=== PATIENT | female | born 1945 | race Caucasian/White ===

== ENCOUNTER 2021-06-02 08:41 | Emergency (ER) | payer MEDICARE, SELFPAY ==
[2021-06-02] VITALS (11 sets, daily range): BP systolic 171–194; BP diastolic 71–89; PULSE 61–77; RESP 16–20; TEMP 36.6–36.8; O2SAT 96–100
--- NOTE | ~2021-06-02 | XR_ITS ---
EXAMINATION: XR chest 2V DATE: 06/02/2021 09:20 INDICATION: Palpitations. TECHNIQUE: Frontal and lateral views of the chest were obtained. COMPARISON: Chest 2 views 04/27/16 FINDINGS: The chest demonstrates clear lungs without pneumonia, pleural effusion, or pneumothorax. Th e heart size is normal. Surgical clips in the right upper quadrant are likely from cholecystectomy. IMPRESSION: 1. No acute cardiopulmonary disease. Reviewed, dictated and finalized at location A.
--- NOTE | 2021-06-02 08:52 | ECG_ITS ---
Measurements Intervals [place] Rate: 70 P: 41 AK: 158 QRS: -19 QRSD: 83 T: 11 QT: 382 QTc: 414 Interpretive Statements SINUS RHYTHM VOLTAGE CRITERIA FOR LVH BORDERLINE T WAVE ABNORMALITY- INFERIOR LEADS BORDERLINE ECG Electronically Signed On 06-02-2021 9:02:23 CDT by Crispin Pineda D.O.
[2021-06-02] MEDS: ASPIRIN 81 MG CHEWABLE TABLET 324 MG PO (09:11)
[2021-06-02 09:52] LABS: Basophils Percent Auto 0.4 % (0.2-1.2); Eosinophils Percent Auto 0.4 % (0-4.4); Hematocrit 35.2 % (37.0-47.0); Hemoglobin 11.6 g/dL (12.0-15.0); Immature Granulocyte Absolute 0.03 K/mm3 (0.00-0.031); Immature Granulocyte Percent A 0.6 % (0-0.5); Lymphocytes Absolute Auto 1.17 K/mm3 (0.9-3.2); Lymphocytes Percent Auto 23.1 % (18.3-44.2); Mean Corpuscular Hemoglobin 31.4 pg (26-34); Mean Corpuscular Volume 95.1 fl (80-100); Mean Platelet Volume 11.4 fl (7.4-10.4); Monocytes Absolute Auto 0.4 K/mm3 (0.1-0.6); Monocytes Percent Auto 7.9 % (2.6-8.5); Neutrophils Absolute Auto 3.4 K/mm3 (1.3-6.7); Neutrophils Percent Auto 67.6 % (45.5-73.1); Platelet Count Result 159 k/mm3 (150-375); Red Cell Distribution Width 13.8 % (11.5-14.5); White Blood Count 5.1 K/mm3 (4.5-10.0)
[2021-06-02 10:02] LABS: Anion Gap 7 mmol/L (8-16); Blood Urea Nitrogen 14 mg/dL (7-17); Calcium 9.4 mg/dL (8.4-10.2); Carbon Dioxide 26 mmol/L (22-30); Chloride 104 mmol/L (98-107); Estimated CRCL calculation 36 ml/min; Estimated Glomerular Filt Rate 54; Glucose 137 mg/dL (65-110); Potassium 4.1 mmol/L (3.4-5.0); Sodium 137 mmol/L (137-145)
[2021-06-02 10:06] LABS: INR 0.9; Partial Thromboplastin Time 26.4 SECONDS (22.3-36.8); Prothrombin Time 12.4 Seconds (11.1-14.7)
[2021-06-02 10:17] LABS: Troponin I < 0.012 ng/mL (0.000-0.034)
--- NOTE | 2021-06-02 11:24 | ED.ARRPALP ---
HPI - Arrhythmia/Palpitations General Chief Complaint: Arrhythmia/Palpitations Stated Complaint: heart palpitations Time Seen by Provider: 06/02/21 11:05 Source: patient Mode of arrival: ambulatory Limitations: no limitations History of Present Illness HPI narrative: This is a 75 year old female that presents to the ER for palpitations over the last 2 days. Reports intermittent feelings of fluttering in her chest. Has not had any symptoms since she has been in the ED. Reports she has been taking Joana over the last couple of days and is wondering if this is what is causing her symptoms. She has been having some clear drainage from the right ear. Does report history of myringotomy with tube placement for which she has seen ENT in the past. Denies fever, chest pain, otalgia or shortness of breath. Related Data Home Medications Medication Instructions Recorded Confirmed aspirin 81 mg tablet,delayed 81 mg PO DAILY 09/01/19 10/04/20 release Allergies Allergy/AdvReac Type Severity Reaction Status Date / Time codeine Allergy Unknown Unknown Verified 06/02/21 11:33 Penicillins Allergy Unknown Unknown Verified 06/02/21 11:33 Review of Systems Review of Systems: CONSTITUTIONAL: Denies fever ENT: Denies otalgia. CARDIOVASCULAR: Reports palpitations. Denies chest pain RESPIRATORY: Denies dyspnea. All systems reviewed & are unremarkable except as noted in HPI and below PMFSH Past Medical History Medical History (Updated 06/02/21 @ 11:34 by Yolande Emerson PA-C) Accelerated essential hypertension GERD (gastroesophageal reflux disease) Hyperlipidemia Type 2 diabetes mellitus Surgical History Surgical History History of ankle surgery History of arthroplasty of both wrists Hx laparoscopic cholecystectomy Family History Family History Grandparent Diabetes mellitus Mother Diabetes mellitus Social History Social History Smoking status: Never smoker Second hand tobacco smoke exposure: No Alcohol intake: never Substance use: never Substance use type: does not use Gender identity (if verbalized by the patient): Female Exam Narrative: GENERAL: Well-appearing, well-nourished, and in no acute distress. HEAD: Normocephalic, atraumatic. EYES: EOMI. ENT: Mucous membranes moist. Oropharynx without tonsillar hypertrophy, exudate or other lesions. Right TM pearly lanza non-bulging. Serous drainage noted from the right external auditory canal. No erythema or edema NECK: Supple. No adenopathy or masses. CHEST: Clear to auscultation. No respiratory distress. No wheezes rales or rhonchi HEART: Regular rate and rhythm. No murmur heard. Normal peripheral pulses. EXTREMITIES: Normal range of motion. No edema. SKIN: Warm, dry, no rash. NEURO: No focal deficits. Alert and oriented x3. PSYCH: Normal mood and affect Course Consultations Consultation #1: Spoke with Dr. Mejia about patient and work-up who will follow up in clinic Date: 06/02/21 Time: 11:36 Vital Signs Vital signs: Vital Signs Temperature 98.3 F 06/02/21 08:49 Pulse Rate 73 06/02/21 08:49 Respiratory Rate 18 06/02/21 08:49 Blood Pressure 194/71 H 06/02/21 08:49 Pulse Oximetry 99 06/02/21 08:49 Temperature 97.8 F 06/02/21 11:30 Pulse Rate 77 06/02/21 11:30 Respiratory Rate 17 06/02/21 11:30 Blood Pressure 171/74 H 06/02/21 11:30 Pulse Oximetry 96 06/02/21 11:30 MDM - Arrhythmia/Palpitations MDM Narrative Medical decision making narrative: Patient presents to the emergency department for intermittent feelings of palpitations over the last couple of days. She is afebrile and nontoxic-appearing. Her vitals are stable. Patient has been in normal sinus rhythm with heart rate in the 60s and 70s while in the ED. CBC is without leukoc
--- NOTE | 2021-06-02 11:46 | PC.NURSE ---
Patient waiting for cardiology to come and fit patient for halter monitor.
[2021-06-02] MEDS: METOPROLOL SUCCINATE EXT REL 25 MG TABCR PO (12:32)
[2021-06-02] MEDS: VALSARTAN 160 MG TABLET 320 MG PO (12:32)
--- NOTE | 2021-06-06 12:58 | WPDHOLTEREM ---
Holter/Event Monitor Holter/Event Monitor Date of procedure: 06/06/21 Holter/Event Procedure: 48 Hr Holter Monitor Diagnosis: Palpitations Indications: Palpitations Image/Tracing Quality: Good Finding: A total of 47 hours 59 minutes recorded and analyzed. Underlying normal sinus rhythm with heart rate variability between 48 and 103 beats per minute with an average heart rate of 67 beats per. Longest RR interval was 1.3 seconds. The AV and IV conduction systems were within normal limits. There is no ventricular ectopy Low frequency supraventricular ectopy totaling 40 beats. This consisted of 1 atrial couplet, 35 isolated premature atrial contractions and 3 beats in a pattern of atrial trigeminy. There was no atrial fibrillation Several patient triggered events of chest beating, palpitations correlated to sinus rhythm only. Conclusion: 1. Unremarkable 48 hour Holter monitor revealing underlying normal sinus rhythm with average heart rate of 67 beats per minute. 2. Low frequency supraventricular ectopy 3. No complex arrhythmia, heart block or pauses 4. Symptom events correlate sinus rhythm only
== END 2021-06-02 12:45 | disposition home or self-care (01) ==
PROVIDERS: Emergency Provider Emergency Medicine; PCP Family Medicine
DX: R00.2 Palpitations (principal); H65.01 Acute serous otitis media, right ear; I10 Essential (primary) hypertension; K21.9 Gastro-esophageal reflux disease without esophagitis; E78.5 Hyperlipidemia, unspecified; E11.9 Type 2 diabetes mellitus without complications; Z79.82 Long term (current) use of aspirin
CPT/HCPCS: 36415; 71046; 80048; 84484; 85025; 85610; 85730; 93005; 93225; 93226; 99284; A9270

== ENCOUNTER 2022-05-23 09:22 | Day surgery (SDC) | payer MEDICARE, SELFPAY ==
[2022-05-10 09:36] VITALS: BMI 24.2
--- NOTE | 2022-05-22 20:56 | WPDANESEPPF ---
Anes - Initial Pre Proc Eval Procedure: Operation Date: 05/23/22 10:30 Proposed Procedures p Cataract Extraction with Lens Implant-Left Eye - Leonel Bhat MD Date/Time: 05/22/22 20:56 Surgeon: Leonel Bhat MD Pre Op Diagnosis: H25.12 Patient Data Age: 76 Gender: F Height: 1.6 m Weight: 62 kg Allergies Allergy/AdvReac Type Severity Reaction Status Date / Time codeine Allergy Unknown Unknown Verified 05/23/22 09:57 Penicillins Allergy Unknown Unknown Verified 05/23/22 09:57 Home Medications Medication Instructions Recorded Confirmed Type aspirin 81 mg tablet,delayed 81 mg PO DAILY 09/01/19 05/23/22 History release (Adult Low Dose Aspirin) atorvastatin 40 mg tablet 40 mg PO DAILY #90 tabs 12/29/21 05/23/22 Rx indapamide 2.5 mg tablet 2.5 mg PO DAILY #90 tabs 01/03/22 05/23/22 Rx metoprolol succinate 25 mg 25 mg PO DAILY #90 tabs 01/03/22 05/23/22 Rx tablet,extended release 24 hr metformin 500 mg tablet 500 mg PO BID #180 tabs 01/31/22 05/23/22 Rx sitagliptin 100 mg tablet (Januvia) 100 mg PO DAILY #90 tabs 01/31/22 05/23/22 Rx mecobalamin (vitamin B12) 1,000 1,000 mcg sublingual DAILY #90 tabs 02/01/22 05/23/22 Rx mcg disintegrating tablet,sublingual valsartan 320 mg tablet 320 mg PO DAILY #90 tabs 03/14/22 05/23/22 Rx alprazolam 0.25 mg tablet 0.25 mg PO TID PRN anxiety #90 tabs 05/03/22 05/10/22 Rx Patient hx anesthesia problems: none Family hx anesthesia problems: none Results Review: All pre-operative results and documents have been reviewed as part of the pre-operative evaluation. [facility] Past Medical History Medical History Accelerated essential hypertension Anemia GERD (gastroesophageal reflux disease) Hyperlipidemia Palpitations Type 2 diabetes mellitus Surgical History Surgical History History of ankle surgery History of arthroplasty of both wrists History of ear surgery (~2020) left tube removal - hole inner ear Hx laparoscopic cholecystectomy Family History Family History Grandparent Diabetes mellitus Mother Diabetes mellitus Social History Social History (Updated 01/25/22 @ 09:08 by Juliet Arevalo CMA) Smoking status: Never smoker Second hand tobacco smoke exposure: No Alcohol intake: never Substance use: never Substance use type: does not use Living arrangements: with family Gender identity (if verbalized by the patient): Female Sexual Orientation (if Verbalized by the Patient): Straight or Heterosexual Spiritual care concerns: No Agree to blood products: Yes Anes - Eval Final PreProcedure Day of Procedure 05/22/22 20:56 Patient weight: obese Heart: regular rate and rhythm Lungs: clear to auscultation and normal air movement Airway: Mallampati scale class II Neurological: alert and oriented Last oral intake: >/= 8 hours ASA classification: III Emergent: no Anesthetic plan: proceed Anesthesia type and monitoring: monitored anesthesia care and standard monitoring Results Review: All pre-operative results and documents have been reviewed as part of the pre-operative evaluation. Informed Consent: The patient's anesthetic plan and its attendant risks and benefits were discussed with the patient/family/POA. Questions were solicited and answers provided to the satisfaction of the patient/family/POA.
--- NOTE | 2022-05-23 09:42 | WPDHPUPDATE1 ---
History and Physical Update Update Date/Time: 05/23/22 09:42 History and Physical has been reviewed, including an updated exam of the patient. There are NO changes in the patient's condition. Risks, benefits, and alternatives have been discussed and questions answered. Patient agrees to proceed with procedure.
[2022-05-23] MEDS: TETRACAINE HCL 0.5% OPHTH SOLN 4 ML BTL 1 DROP AFFCTD EYE ×3 (09:55→10:05)
[2022-05-23] MEDS: OFLOXACIN 0.3% OPHTH SOLN 5 ML BTL 1 DROP AFFCTD EYE ×2 (09:55→11:19)
[2022-05-23 10:01] VITALS: BP 168/54; PULSE 62; RESP 16; TEMP 36.8; O2SAT 99; BMI 24.2
[2022-05-23 10:13] LABS: Glucose Point of Care 144 mg/dl (65-105)
[2022-05-23] MEDS: LIDOCAINE HCL 2% JELLY 5 ML TUBE 1 APPLIC AFFCTD EYE (10:50)
[2022-05-23] MEDS: LIDOCAINE HCL 1% LOCAL INJ 2 ML AMPUL INFILTRATE (11:07)
[2022-05-23] MEDS: BRIMONIDINE TARTRATE 0.2% OP SOLN 5 ML BTL 1 DROP AFFCTD EYE (11:18)
[2022-05-23] MEDS: prednisoLONE ACETATE 1% OPHTH 5 ML 1 DROP AFFCTD EYE (11:19)
[2022-05-23 11:23] VITALS: BP 141/49; PULSE 54; RESP 16; O2SAT 99
[2022-05-23] MEDS: acetaZOLAMIDE TAB 250 MG TABLET PO (11:31)
--- NOTE | 2022-05-23 11:32 | WPDANESPN ---
Anes - Prog Note Post-Op Date/Time: 05/23/22 11:32 Cardiovascular status: normal Respiratory status: normal Airway patency: baseline Mental status: baseline Post-Op hydration status: normal Vital Signs: Last Vital Signs Temp 36.8 C 05/23/22 10:01 Pulse 62 05/23/22 10:01 Resp 16 05/23/22 10:01 BP 168/54 H 05/23/22 10:01 Pulse Ox 99 05/23/22 10:01 O2 Del Method Room Air 05/23/22 10:01 Pain Score (VAS): 0 05/23/22 10:07 POC Capillary Glucose 144 H Patient Feedback: Patient satisfied with anesthetic care.
[2022-05-23 11:33] VITALS: BP 146/52; PULSE 60; RESP 20; O2SAT 99
--- NOTE | 2022-05-23 11:54 | W.PM.PROC2 ---
Procedure Note - Detailed Date of Procedure 05/23/22 Pre-op Diagnosis H25.12 Post-op Diagnosis Same Procedure Performed Cataract Extraction (by Phacoemulsification) and lntraocular Lens Implant LEFT eye Surgeon Leonel Bhat MD Description of Procedure The eye was anesthetized with topical 0.75% bupivacaine. After intravenous sedation and placement of monitors, the patient was prepped and draped in the usual sterile manner. A lid speculum was placed. A paracentesis was made, and preservative free 1% lidocaine was instilled in the anterior chamber. The anterior chamber was then filled with Viscoat viscoelastic. A bret keratome was used to create the wound. Continuous tear anterior capsulotomy was performed. The lens was hydro dissected before being removed with phacoemulsification. The remaining lenticular cortex was removed with aspiration. The capsular bag was polished and filled with viscoelastic material. An intraocular lens was chosen, inspected, irrigated and placed within the capsular bag where it was seen to be centered and stable. The viscoelastic material was aspirated. The wound was closed and found to be watertight. Ciloxan drops were placed in the eye. The speculum was removed. A Limon shield was applied. The patient tolerated the procedure well and left the operating room in satisfactory condition. Implants See chart Complications None Condition Stable Disposition Same day
== END 2022-05-23 11:48 | disposition home or self-care (01) ==
PROVIDERS: PCP Family Medicine; Visit Provider Student in an Organized Health Care Education/Training Program
PROC: (CPT 66983; principal; 2022-05-23 10:30)
DX: H25.12 Age-related nuclear cataract, left eye (principal)
CPT/HCPCS: 66984; VIVITY

== ENCOUNTER 2024-09-25 13:21 | Outpatient (CLI) | payer MEDICARE, SELFPAY ==
[2024-09-25 14:42] LABS: Influenza A QL RT-PCR Positive (Negative); Influenza B QL RT-PCR Negative (Negative); RSV RNA, RT-PCR Negative (Negative); SARS-CoV-2 RNA PCR Negative (Negative)
== END 2024-09-25 13:22 | disposition home or self-care (01) ==
PROVIDERS: PCP Family Medicine; Visit Provider Family Medicine
DX: J06.9 Acute upper respiratory infection, unspecified (principal)
CPT/HCPCS: 87637

== ENCOUNTER 2025-06-02 15:55 | Inpatient (IN) | payer MEDICARE, SELFPAY ==
--- NOTE | ~2025-06-02 | CT_ITS ---
EXAMINATION: CT brain wo con DATE: 06/02/2025 16:13 INDICATION: Confusion. TECHNIQUE: Computed tomography (CT) of the head was performed without intravenous contrast. The dose-length product was 681.00 mGy-cm. Automated exposure control and iterative reconstruction technique were employed. COMPARISON: None FINDINGS: Generalized brain parenchymal volume loss. No acute infarction, hemorrhage, mass or mass effect. There is intracranial atherosclerosis. Midline sagittal images demonstrate a normal corpus callosum and craniovertebral junction. There are bilateral mastoid effusions. Paranasal sinuses are unrem arkable. There is a chronic lacunar infarction of the left caudate nucleus. There are scattered mild periventricular and subcortical white matter changes, most likely related to small vessel ischemic disease (microangiopathy). No depressed skull fractures. IMPRESSION: 1. No acute intracranial abnormality. 2: Chronic left lacunar infarction. Reviewed, dictated and finalized at location O.
--- NOTE | ~2025-06-02 | MR_ITS ---
EXAMINATION: MR brain/brain stem wo con DATE: 06/03/2025 13:26 INDICATION: Possible stroke with slurred speech TECHNIQUE: Magnetic resonance imaging (MRI) of the brain and brainstem was performed without intravenous contrast. Sequences included sagittal and axial T1-weighted SE, axial diffusion-weighted FS SE, axial T2*-weighted GRE, axial T2-weighted FLAIR, and axial T2-weighted FSE. Apparent diffusion coefficient (ADC) maps were created. COMPARISON: None. FINDINGS: There is motion artifact on the T1-weighted imaging. There are no areas of restricted diffusion to suggest acute infarction. No intracranial hemorrhage or abnormal intracranial mass lesion. There are scattered areas of nonspecific increased T2-weighted signal intensity in the cerebral white matter, pre dominantly involving the deep and periventricular white matter. There are no intraparenchymal signal abnormalities seen on the other pulse sequences. Symmetric prominence of the sulci and ventricles consistent with mild age- appropriate diffuse cerebral volume loss. There are no abnormal extra-axial flu id collections. Flow voids are seen in the cerebral arteries on the T2-weighted sequences consistent with their expected patency. Changes of bilateral intraocular lens replacement. Visualized orbits and soft tissues are unremarkable. IMPRESSION: 1. No acute intracranial process. 2. Age-related changes in the brain including mild diffuse volume loss and mild scattered white matter T2 hyperintensity consistent with chronic small vessel ischemic disease. Reviewed, dictated and finalized at location A.
--- NOTE | ~2025-06-02 | CT_ITS ---
EXAMINATION: CTA brain carotid DATE: 06/02/2025 18:09 CDT INDICATION: CVA TECHNIQUE: Computed tomographic angiography (CTA) of the head was performed without and with 100 mL Omnipaque-350 intravenous contrast. CTA of the neck was performed with intravenous contrast. The dose-length product was 895.28 mGy-cm. Maximum intensity projection and volume rendered 3D-reconstructions were created by the technologist on a separate workstation. Automated exposure control and iterative reconstruction technique were employed. COMPARISON: None. FINDINGS: HEAD CTA: There is atherosclerosis in the cavernous segments of the carotid arteries. No significant stenosis, occlusion or aneurysm. Chronic left lacunar infarction. NECK CTA: Codominant vertebral arteries. There is atherosclerosis at the origin of the internal carotid arteries with 51% stenosis on the right and 65% stenosis on the left. No evidence for occlusion or dissection. The origin of the carotid arteries from the aorta are widely patent. The origin of the vertebral arteries is widely patent. Lung apices are normal. No abnormality of the thyroid gland. IMPRESSION: 1: No significant intracranial vascular abnormality. 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 3: Stenosis at the origin of the left internal carotid artery measuring 65%. Reviewed, dictated and finalized at location O.
--- NOTE | ~2025-06-02 | XR_ITS ---
EXAMINATION: XR chest 1V portable 06/02/2025 16:50 INDICATION: Confusion. TECHNIQUE:A single portable AP upright frontal image of the chest was obtained. COMPARISON: 06/02/2021 FINDINGS: Heart is mildly enlarged, unchanged. No pneumothorax. No pleural effusion. No free air under the diaphragm. Small opacities in the lower lungs. IMPRESSION: 1: Small opacities in the mid and lower lungs which represents atelectasis/scarring or infiltrates. Reviewed, dictated and finalized at location Q. IMPRESSION: 1: Small opacities in the mid and lower lungs which represents atelectasis/sca rring or infiltrates.
--- NOTE | 2025-06-02 16:01 | ECG_ITS ---
Test Date: 2025-06-02 16:20:34 Measurements Intervals [place] Rate: 69 P: 47 NH: 138 QRS: -22 QRSD: 81 T: 4 QT: 394 QTc: 425 Interpretive Statements SINUS RHYTHM VOLTAGE CRITERIA FOR LVH [MEETS CRITERIA IN ONE OF: R(aVL), S(V1), R(V5), R(V5/V6)+S(V1)] POSSIBLE SEPTAL MYOCARDIAL INFARCTION , OF INDETERMINATE AGE [30 ms Q WAVE IN V1/V2] ABNORMAL ECG No previous ECG available for comparison Electronically Signed On 06-02-2025 16:31:31 CDT by Soham Baxter M.D.
[2025-06-02 16:17] VITALS: PULSE 68; RESP 17; O2SAT 96
--- NOTE | 2025-06-02 16:31 | ED.NEUROSD ---
HPI - Neuro Symptoms/Deficit General Chief Complaint: Neuro Symptoms/Deficit Stated Complaint: CONFUSION,SLURRED SPEECH SINCE 1514 Time Seen by Provider: 06/02/25 16:22 History of Present Illness HPI Narrative: This is a 79-year-old female with history of CKD, anxiety, GERD, diabetes, hypertension who presents to the ED for altered mental status. Per patient's , patient was diagnosed with a UTI yesterday at her PCPs office and she has taken 2 doses of Keflex. About an hour ago, patient began to slur her words and have significant memory loss prompting to bring her in. She has no known history of strokes. She is not on any blood thinners. He states that at this time, her slurred speech has improved. Patient is not able to participate in history taking 2 to severe hard of hearing. Related Data Home Medications ?Medication ?Instructions ?Recorded ?Confirmed ?Last Taken ?Type donepezil 10 mg tablet 20 mg PO QHS 06/02/25 06/02/25 Unknown History indapamide 2.5 mg tablet 2.5 mg PO DAILY@0800 06/02/25 06/02/25 Unknown History Allergies Allergy/AdvReac Type Severity Reaction Status Date / Time codeine Allergy Unknown Unknown Verified 06/01/25 09:02 Penicillins Allergy Unknown Unknown Verified 06/01/25 09:02 Review of Systems Review of Systems: ROS limited due to patient's hard of hearing PMFSH Past Medical History Medical History Chronic renal insufficiency, stage III (moderate) Anemia Palpitations Hyperlipidemia GERD (gastroesophageal reflux disease) Accelerated essential hypertension Type 2 diabetes mellitus Surgical History Surgical History History of ear surgery (~2020) left tube removal - hole inner ear History of ankle surgery History of arthroplasty of both wrists Hx laparoscopic cholecystectomy Family History Family History Grandparent Diabetes mellitus Mother Diabetes mellitus Social History Social History Smoking status: Never smoker Second hand tobacco smoke exposure: No Alcohol intake: never Substance use: never Substance use type: does not use Lack of Transportation: No Lack of Food: Never True Current Housing: I Have Housing Concerned About Future Housing: No Difficulty Paying Gas/Electric Bills: No Difficulty Paying for Meds: No Currently Unemployed: No Education: High School Diploma/GED Difficulty w/ Childcare or Family Care: No Living arrangements: with family Occupation/Education: retired Gender identity (if verbalized by the patient): Female Sexual Orientation (if Verbalized by the Patient): Straight or Heterosexual Spiritual care concerns: No Agree to blood products: Yes Exam Narrative: APPEARANCE: No acute distress, nontoxic, resting in bed EYES: EOMI HEENT: Normocephalic, atraumatic, OMM RESPIRATORY: No respiratory distress Clear to auscultation bilaterally with no rhonchi wheezing or rales. CARDIOVASCULAR: Regular rate and rhythm without murmurs rubs or gallops. ABDOMINAL: Soft, nontender, nondistended, no rebound or guarding MUSCULOSKELETAl: Moves all extremities. No clubbing, cyanosis or edema. NEURO: Hard of hearing. Awake and alert. Neuro exam somewhat limited due to hard of hearing, no focal deficits. SKIN:: Warm, dry. No rashes lesions or abrasions PSYCHIATRIC: Normal affect/mood, Course Vital Signs Vital signs: Vital Signs Pulse Rate 68 06/02/25 16:17 Respiratory Rate 17 06/02/25 16:17 Pulse Oximetry 96 06/02/25 16:17 Oxygen Delivery Room Air 06/02/25 16:17 Pulse Rate 78 06/02/25 19:27 Respiratory Rate 19 06/02/25 19:15 Blood Pressure 122/81 06/02/25 19:15 Pulse Oximetry 98 06/02/25 19:27 Oxygen Delivery Room Air 06/02/25 16:17 MDM - Neuro Symptoms/Deficit MDM Narrative Medical decision making narrative: 79-year-old female who presented to the ED for transient slurred speech and confusion. On initial evaluation, patient was AAO x2 with no focal neurologic deficits. NIHSS was rather limited due to her significant hard of hearing but no focal deficits. She is taken immediately to CT and CT head in the acute process. CBC was without significant abnormalities. Creatinine mildly elevated but at baseline, remaining CMP without significant abnormalities. Alcohol Level 0. Chest x-ray showed acute process. Discussed case with Neurology given the transient slurred speech, will see the patient as consult and does recommend MRI brain and aspirin 162 daily but no Plavix at this time. Patient will be given Rocephin for UTI that I believe is most likely the reason for her metabolic encephalopathy. Discussed case with hospitalist who will admit the patient. Differential Diagnosis Differential diagnosis: Likely other (CVA, TIA, electrolyte abnormality, UTI) Medical Records Attestation: I reviewed the patient's medical records. Lab Data Attestation: I reviewed the patient's lab results. 06/02/25 16:35 06/02/25 16:35 Labs: Lab Results 06/02/25 06/02/25 Range/Units 16:02 16:35 WBC 5.2 (4.5-10.0) K/mm3 RBC 4.30 (4.2-5.4) M/mm3 Hgb 12.1 (12.0-15.0) g/dL Hct 38.2 (37.0-47.0) % MCV 88.8 (80-100) fl MCH 28.1 (26-34) pg MCHC 31.7 L (32-36) g/dl RDW 13.6 (11.5-14.5) % Plt Count 152 (150-375) k/mm3 MPV 12.6 H (7.4-10.4) fl Immature Gran % (Auto) 1.1 H (0-0.5) % Neut % (Auto) 53.3 (45.5-73.1) % Lymph % (Auto) 35.9 (18.3-44.2) % Riley % (Auto) 9.5 H (2.6-8.5) % Eos % (Auto) 0.2 (0-4.4) % Baso % (Auto) 0.0 L (0.2-1.2) % Lymph # (Auto) 1.88 (0.9-3.2) K/mm3 Riley # (Auto) 0.5 (0.1-0.6) K/mm3 Eos # (Auto) 0.0 (0-0.3) K/mm3 Baso # (Auto) 0.0 (0.0-0.1) K/mm3 Abs Immat Gran (auto) 0.06 H (0.00-0.031) K/mm3 Absolute Neuts (auto) 2.8 (1.3-6.7) K/mm3 Absolute Nucleated RBC 0.000 (0.0-0.012) K/mm3 Nucleated RBC % 0.0 (0.0-0.2) % PT 13.4 (11.1-14.7) Seconds INR 1.0 APTT 28.0 (22.3-36.8) Seconds Sodium 136 L (137-145) mmol/L Potassium 4.1 (3.4-5.0) mmol/L Chloride 102 (98-107) mmol/L Carbon Dioxide 26 (22-30) mmol/L Anion Gap 8 (4-12) mmol/L BUN 18 H (7-17) mg/dL Creatinine 1.35 H (0.7-1.0) mg/dL Estim Creat Clear Calc 28 ml/min Estimated GFR 38 L (59 - ) Glucose 201 H (65-110) mg/dL POC Capillary Glucose 192 H (65-105) mg/dl Calcium 9.5 (8.4-10.2) mg/dL Total Bilirubin 0.7 (0.2-1.3) mg/dL AST 25 (14-36) U/L ALT 9 (6-35) U/L Alkaline Phosphatase 113 (38-126) U/L Troponin I < 0.012 (0.000-0.034) ng/mL Total Protein 7.2 (6.3-8.2) g/dL Albumin 4.3 (3.5-5.1) g/dL Ethyl Alcohol < 10 (<10) mg/dL Imaging Data Radiologist's impression: Impressions Head CT 06/02/25 16:22 IMPRESSION: 1. No acute intracranial abnormality. 2: Chronic left lacunar infarction. Chest X-Ray 06/02/25 16:50 IMPRESSION: 1: Small opacities in the mid and lower lungs which represents atelectasis/scarring or infiltrates. Head/Neck CTA 06/02/25 18:08 IMPRESSION: 1: No significant intracranial vascular abnormality. 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 3: Stenosis at the origin of the left internal carotid artery measuring 65%. ECG Data EKG #1: Attestation: I personally reviewed and interpreted this ECG as follows: ECG completion date: 06/02/25 ECG completion time: 16:20 Interpretation: Normal sinus rhythm rate of 69, LAD, LVH, Q-waves in V1, no acute ST or T-wave changes Discharge Plan Discharge Clinical Impression: Acute metabolic encephalopathy, Acute UTI Patient Disposition: Home Condition: Stable
[2025-06-02 16:47] LABS: Hematocrit 38.2 % (37.0-47.0); Hemoglobin 12.1 g/dL (12.0-15.0); Immature Granulocyte Percent A 1.1 % (0-0.5); Lymphocytes Absolute Auto 1.88 K/mm3 (0.9-3.2); Mean Corpuscular HGB Conc 31.7 g/dl (32-36); Mean Corpuscular Hemoglobin 28.1 pg (26-34); Mean Corpuscular Volume 88.8 fl (80-100); Nucleated Red Blood Cells Absolute Auto 0.000 K/mm3 (0.0-0.012); Nucleated Red Blood Cells Perc 0.0 % (0.0-0.2); Platelet Count Result 152 k/mm3 (150-375); Red Blood Count 4.30 M/mm3 (4.2-5.4); White Blood Count 5.2 K/mm3 (4.5-10.0)
[2025-06-02 16:54] LABS: Alanine Aminotransferase 9 U/L (6-35); Albumin Level 4.3 g/dL (3.5-5.1); Alkaline Phosphatase 113 U/L (38-126); Anion Gap 8 mmol/L (4-12); Aspartate Amino Transferase 25 U/L (14-36); Bilirubin,Total 0.7 mg/dL (0.2-1.3); Blood Urea Nitrogen 18 mg/dL (7-17); Calcium 9.5 mg/dL (8.4-10.2); Carbon Dioxide 26 mmol/L (22-30); Chloride 102 mmol/L (98-107); Estimated CRCL calculation 28 ml/min; Estimated Glomerular Filt Rate 38; Glucose 201 mg/dL (65-110); Potassium 4.1 mmol/L (3.4-5.0); Sodium 136 mmol/L (137-145); Total Protein 7.2 g/dL (6.3-8.2)
[2025-06-02 16:57] LABS: INR 1.0; Prothrombin Time 13.4 Seconds (11.1-14.7)
[2025-06-02 16:58] LABS: Partial Thromboplastin Time 28.0 Seconds (22.3-36.8)
[2025-06-02 17:05] LABS: Troponin I < 0.012 ng/mL (0.000-0.034)
[2025-06-02] MEDS: cefTRIAXone 2 GM in SODIUM CHLORIDE 0.9% IV 100 ML 200 ML IVPB (18:36)
[2025-06-02] MEDS: ASPIRIN 81 MG ENTERIC TABLET 162 MG PO (18:42)
[2025-06-02 19:15] VITALS: BP 122/81; PULSE 83; RESP 19; O2SAT 100
[2025-06-02 19:27] VITALS: PULSE 78; O2SAT 98
--- NOTE | 2025-06-02 20:20 | PC.NURSE ---
Attempted to call report with no answer.
--- NOTE | 2025-06-02 20:30 | PC.NURSE ---
Attempted to call report for 2nd time. No answer. Spoke with floor charge nurse and was transferred to floor. No answer. ED Charge notified.
[2025-06-02 21:02] VITALS: BMI 20.8
--- NOTE | 2025-06-02 21:07 | ADMGEN ---
This patient, Michelle Montiel, was admitted to [address] [place] [address] Room [facility] at 2100. Patient/family oriented to hospital policies and general routines including ID bracelet, bed and alarms, visiting hours, pain management, procedures, bathroom and other care routines, personal items, smoking policy, room service/diet, and visiting hours. Information on how to activate the Rapid Response Team has been discussed. Patient/Family are encouraged to report perceived risks to care and to ask questions if they do not understand what they are told or what they should do.
[2025-06-02 22:32] LABS: Cholesterol 242 mg/dL (0-200); HDL Direct 67 mg/dL; Triglycerides 245 mg/dL (<150)
[2025-06-03] VITALS (8 sets, daily range): BP systolic 144–179; BP diastolic 59–76; PULSE 51–78; RESP 18; TEMP 36.6–36.8; O2SAT 97–99
--- NOTE | 2025-06-03 | ECHO_ITS ---
Patient Info Name: Michelle Montiel Age: 79 years : 1945 Gender: Female Ht: 65 in Wt: 125 lbs BSA: 1.61 m2 HR: 60 bpm BP: 179 / 76 mmHg Technical Quality: Good Exam Date: 06/03/2025 10:31 AM Patient Status: I Admit Date: 06/02/2025 Exam Type: CA echo doppler w bubble study Complete two-dimensional, color flow and Doppler transthoracic echocardiogram is performed with agitated saline. Staff Referring Physician: [employer] Director: Tim Castanon III Attending Provider: Gabby Garcia Contrast/Agitated Saline Contrast/Ag. Saline: Agitated Saline Amount: 12.00 ml Administered By: Tim Castanon III Existing IV Access: Yes IV Access Condition: patent with no signs of infiltration Summary 1. There is normal biventricular size and systolic function. 2. There are no left ventricular regional wall motion abnormalities. 3. There are no significant valvular abnormalities. 4. Agitated saline study did not reveal any [id number] shunting. Left Ventricle The left ventricle is normal in size and systolic function. The left ventricular ejection fraction is visually estimated to be 60-65%. There are no regional wall motion abnormalities. Right Ventricle The right ventricle is normal in size and systolic function. Left Atria The left atrium is normal size. Right Atria The right atrium is normal size. Atrial Septum Agitated saline study did not reveal any [id number] shunting. Aortic Valve The aortic valve is trileaflet and sclerotic. There is no aortic stenosis. There is no aortic regurgitation. Pulmonic Valve The pulmonic valve is not well visualized. There is trace pulmonic valve regurgitation. Mitral Valve The mitral valve leaflets are sclerotic. There is mild mitral regurgitation. Tricuspid Valve The tricuspid valve is normal. There is no tricuspid regurgitation. Pericardium/Pleural Pericardium is normal in appearance with no evidence for significant pericardial effusion. Inferior Vena Cava Normal inferior vena cava with >50% collapse upon inspiration consistent with normal right atrial pressure, 3 mmHg. Aorta The aortic root at the level of the sinus of Valsalva measures 2.9 cm in diameter. Left Ventricular Outflow Tract Name Value Normal LVOT 2D LVOT Diameter 2.1 cm LVOT Doppler LVOT Peak Velocity 93 cm/s LVOT Peak Gradient 3 mmHg LVOT Mean Gradient 2 mmHg LVOT VTI 28 cm LVOT VTI/AV VTI Ratio 1.0 LVOT Stroke Volume 97 ml LVOT CO 12.8 l/min LVOT CI 8.0 l/min/m2 Pulmonic Valve Name Value Normal PV Doppler PV Peak Velocity 90 cm/s PV Peak Gradient 3 mmHg Mitral Valve Name Value Normal MV Doppler MV Peak Gradient 5 mmHg MV Mean Gradient 1 mmHg MV Area (Cont Eq VTI) 3.7 cm2 MV Diastolic Function MV E Peak Velocity 60 cm/s MV A Peak Velocity 108 cm/s MV E/A 0.6 MV Decel Time (PW) 297 ms MV Annular TDI MV E/e' (Septal) 16.3 MV E/e' (Lateral) 8.0 MV E/e' (Average) 12.2 Tricuspid Valve Name Value Normal Estimated PAP/RSVP RA Pressure 3 mmHg <=5 TV Annular TDI TV Lateral Natacha s' Velocity 17.3 cm/s >=9.5 Aortic Valve Name Value Normal AV Doppler AV Peak Velocity 127 cm/s AV Peak Gradient 6 mmHg AV Mean Gradient 3 mmHg AV VTI 27 cm AV Area (Cont Eq VTI) 3.6 cm2 >=3.0 AV Area (Cont Eq Bobby) 2.5 cm2 AV DI (Bobby) 0.73 AV Regurgitation 2D LVOT Area 3.5 cm2 Ventricles Name Value Normal LV Dimensions 2D/MM IVS Diastolic Thickness (2D) 4.2 cm 0.6-1.0 LVID Diastole (2D) 4.2 cm 3.8-5.2 LVID Systole (2D) 2.9 cm 2.2-3.5 LVOT Diameter 2.1 cm LV Fractional Shortening/Ejection Fraction 2D/MM LV Fractional Shortening (2D) 30 % 27-45 LV EF (2D Teichholz) 58 % LV Diastolic Volume (4C MOD) 70 ml LV EF (4C MOD) 62 % LV Diastolic Volume (2C MOD) 53 ml LV EF (2C MOD) 58 % LV Diastolic Volume (BP MOD) 62 ml 46-106 LV Diastolic Volume Index (BP MOD) 38 ml/m2 29-61 LV Systolic Volume (BP MOD) 25 ml 14-42 LV Systolic Volume Index (BP MOD) 16 ml/m2 8-24 LV EF (BP MOD) 59 % 54-74 LV Diastolic Length (4C) 7.3 cm LV Systolic Length (4C) 5.7 cm LV Stroke Volume (4C MOD) 43 ml Atria Name Value Normal LA Dimensions LA Volume (4C A-L) 41 ml LA Volume (BP A-L) 49 ml RA Dimensions RA Area (4C) 14.5 cm2 <=18.0 Report Signatures
[2025-06-03] MEDS: DONEPEZIL HCL 10 MG TABLET PO ×2 (00:03→19:32)
[2025-06-03 06:06] LABS: Hematocrit 36.7 % (37.0-47.0); Hemoglobin 11.9 g/dL (12.0-15.0); Immature Granulocyte Percent A 0.6 % (0-0.5); Lymphocytes Absolute Auto 1.78 K/mm3 (0.9-3.2); Mean Corpuscular HGB Conc 32.4 g/dl (32-36); Mean Corpuscular Hemoglobin 28.6 pg (26-34); Mean Corpuscular Volume 88.2 fl (80-100); Nucleated Red Blood Cells Absolute Auto 0.000 K/mm3 (0.0-0.012); Nucleated Red Blood Cells Perc 0.0 % (0.0-0.2); Platelet Count Result 139 k/mm3 (150-375); Red Blood Count 4.16 M/mm3 (4.2-5.4); White Blood Count 5.4 K/mm3 (4.5-10.0)
[2025-06-03 06:28] LABS: Alanine Aminotransferase 7 U/L (6-35); Albumin Level 4.0 g/dL (3.5-5.1); Alkaline Phosphatase 103 U/L (38-126); Anion Gap 7 mmol/L (4-12); Aspartate Amino Transferase 25 U/L (14-36); Bilirubin,Total 0.7 mg/dL (0.2-1.3); Blood Urea Nitrogen 16 mg/dL (7-17); Calcium 9.1 mg/dL (8.4-10.2); Carbon Dioxide 25 mmol/L (22-30); Chloride 102 mmol/L (98-107); Estimated CRCL calculation 30 ml/min; Estimated Glomerular Filt Rate 43; Glucose 133 mg/dL (65-110); Magnesium 2.0 mg/dL (1.6-2.3); Potassium 4.2 mmol/L (3.4-5.0); Sodium 134 mmol/L (137-145); Total Protein 6.5 g/dL (6.3-8.2)
--- NOTE | 2025-06-03 07:13 | P.HP_ITS ---
H&P: HPI History of Present Illness Date/Time: 06/03/25 07:13 Chief Complaint: ams Narrative: 79-year-old female with history of CKD, anxiety, GERD, diabetes, hypertension admitted for altered mental status. Per patient's , patient was diagnosed with a UTI yesterday at her PCPs office and she has taken 2 doses of Keflex. Later in a day, she began to slur her words and have significant memory loss prompting to bring her in for further evaluation. She has no known history of strokes. She is not on any blood thinners. He states that at this time, her slurred speech has improved. In ED: patient was alert and oriented x2 with no focal neurologic deficits. NIHSS was rather limited due to her significant hard of hearing but no focal deficits. CT head-IMPRESSION: 1. No acute intracranial abnormality. 2: Chronic left lacunar infarction. CTA: IMPRESSION: 1: No significant intracranial vascular abnormality. 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 3: Stenosis at the origin of the left internal carotid artery measuring 65%. Chest xray: IMPRESSION: : Small opacities in the mid and lower lungs which represents a telectasis/scarring or infiltrates. CBC was without significant abnormalities. Creatinine mildly elevated but at baseline, remaining CMP without significant abnormalities. Alcohol Level-0 Discussed case with Neurology per ED provider: given the transient slurred speech, neurology will consult and recommend MRI brain and aspirin 162 daily but no Plavix at this time. Patient will be given Rocephin for UTI as could be a reason for her ams. Pt exam is limited as she is drowsy and very [place]. was able to answer most of the questions. Review of Systems Review of Systems: All systems reviewed & are unremarkable except as noted in HPI and below (h/p) [facility] Past Medical History Medical History Chronic renal insufficiency, stage III (moderate) Anemia Palpitations Hyperlipidemia GERD (gastroesophageal reflux disease) Accelerated essential hypertension Type 2 diabetes mellitus Surgical History Surgical History History of ear surgery (~2020) left tube removal - hole inner ear History of ankle surgery History of arthroplasty of both wrists Hx laparoscopic cholecystectomy Family History Family History Grandparent Diabetes mellitus Mother Diabetes mellitus Social History Social History Smoking status: Never smoker Second hand tobacco smoke exposure: No Alcohol intake: never Substance use: never Substance use type: does not use Lack of Transportation: No Lack of Food: Never True Current Housing: I Have Housing Concerned About Future Housing: No Difficulty Paying Gas/Electric Bills: No Difficulty Paying for Meds: No Currently Unemployed: No Education: High School Diploma/GED Difficulty w/ Childcare or Family Care: No Living arrangements: with family Occupation/Education: retired Gender identity (if verbalized by the patient): Female Sexual Orientation (if Verbalized by the Patient): Straight or Heterosexual Spiritual care concerns: No Agree to blood products: Yes Meds Home Medications and Allergies Home Medications ?Medication ?Instructions ?Recorded ?Confirmed ?Type mecobalamin (vitamin B12) 1,000 1,000 mcg sublingual D AILY #90 tabs 02/01/22 06/02/25 Rx mcg disintegrating tablet,sublingual metformin 500 mg tablet 500 mg PO BID #180 tabs 01/2106/01/25 Rx atorvastatin 40 mg tablet 40 mg PO DAILY #90 tabs 04/1506/02/25 Rx alprazolam 0.25 mg tablet 0.25 mg PO TID PRN anxiety # 90 tabs 07/15/24 06/02/25 Rx valsartan 320 mg tablet 320 mg PO DAILY #90 tabs 06/02/25 Rx metoprolol succinate 25 mg 25 mg PO DAILY #90 tabs 06/1706/02/25 Rx tablet,extended release 24 hr sitagliptin phosphate 100 mg 100 mg PO DAILY #90 tabs 05/20/25 06/02/25 Rx tablet (Januvia) sulfamethoxazole 400 1 tablet PO Q12H 7 days #14 tabs 06/01/25 06/01/25 Rx mg-trimethoprim 80 mg tablet donepezil 10 mg tablet 10 mg PO QHS 06/02/25 History indapamide 2.5 mg tablet 2.5 mg PO DAILY@0800 5 06/02/25 History Allergies Allergy/AdvReac Type Severity Reaction Status Date / Time codeine Allergy Unknown Unknown Verified 06/03/25 10:02 Penicillins Allergy Unknown Unknown Verified 06/01/25 09:02 Vital Signs Vital Signs - 24 hr 06/02/25 16:17 06/02/25 19:15 06/02/25 19:27 Temperature Pulse Rate 68 83 Respiratory Rate 17 19 Blood Pressure 122/81 Pulse Oximetry 96 100 98 Oxygen Delivery Room Air 06/02/25 19:27 06/03/25 00:00 06/03/25 04:00 Temperature Pulse Rate 78 56 L 51 L Respiratory Rate Blood Pressure Pulse Oximetry Oxygen Delivery 06/03/25 04:29 Temperature 98.2 F Pulse Rate 60 Respiratory Rate 18 Blood Pressure 179/76 H Pulse Oximetry 98 Oxygen Delivery Exam Narrative: pt is drowsy, but able to follow simple one step commands. Const: General: comfortable Resp: Effort & Inspection: normal respiratory effort Auscultation: clear to auscultation bilaterally Cardio: Rate: regular rate Rhythm: regular rhythm GI: GI Palp: Yes Soft to palpation Auscultation: normal bowel sounds Skin: General skin exam: normal color Neuro: Other: decreased strength, no slurred speech, no facial droop noted Extrem: General: normal to inspection H&P: Results Labs Labs: Short CBC 06/02/25 06/03/25 Range/Units 16:35 05:36 WBC 5.2 5.4 (4.5-10.0) K/mm3 Hgb 12.1 11.9 L (12.0-15.0) g/dL Hct 38.2 36.7 L (37.0-47.0) % Plt Count 152 139 L (150-375) k/mm3 [facility] 06/02/25 06/03/25 16:35 05:36 Sodium 136 L 134 L Potassium 4.1 4.2 Chloride 102 102 Carbon Dioxide 26 25 BUN 18 H 16 Creatinine 1.35 H 1.22 H Glucose 201 H 133 H Calcium 9.5 9.1 Cardiac Enzymes 06/02/25 Range/Units 16:35 Troponin I < 0.012 (0.000-0.034) ng/mL Liver Function 06/02/25 06/03/25 Range/Units 16:35 05:36 Total Bilirubin 0.7 0.7 (0.2-1.3) mg/dL AST 25 25 (14-36) U/L ALT 9 7 (6-35) U/L Alkaline Phosphatase 113 103 (38-126) U/L Albumin 4.3 4.0 (3.5-5.1) g/dL Assessment and Plan Assessment and plan (1) Primary hypertension: Code(s): I10 - Essential (primary) hypertension Status: Acute (2) Hyperlipidemia: Qualifiers: Hyperlipidemia type: mixed hyperlipidemia Qualified Code(s): E78.2 - Mixed hyperlipidemia Code(s): E78.5 - Hyperlipidemia, unspecified Status: Acute (3) Anxiety: Code(s): F41.9 - Anxiety disorder, unspecified Status: Acute (4) Type 2 diabetes mellitus: Qualifiers: Diabetes mellitus complication detail: with microalbuminuria Diabetes mellitus complication status: with kidney complications Diabetes mellitus inspector radar and electronics insulin use: without inspector radar and electronics use Qualified Code(s): E11.29 - Type 2 diabetes mellitus with other diabetic kidney complication; R80.9 - Proteinuria, unspecified Code(s): E11.9 - Type 2 diabetes mellitus without complications Status: Acute (5) GERD (gastroesophageal reflux disease): Qualifiers: Esophagitis presence: without esophagitis Qualified Code(s): K21.9 - Gastro-esophageal reflux disease without esophagitis Code(s): K21.9 - Gastro-esophageal reflux disease without esophagitis Status: Acute (6) Acute UTI: Code(s): N39.0 - Urinary tract infection, site not specified Status: Acute (7) Anemia: Code(s): D64.9 - Anemia, unspecified Status: Acute (8) Acute metabolic encephalopathy: Code(s): G93.41 - Metabolic encephalopathy Status: Acute Plan 79-year-old female with history of CKD, anxiety, GERD, diabetes, hypertension admitted for altered mental status. In ED: patient was alert and oriented x2 with no focal neurologic deficits. NIHSS was rather limited due to her significant hard of hearing but no focal deficits. CT head-IMPRESSION: 1. No acute intracranial abnormality. 2: Chronic left lacunar infarction. CTA: IMPRESSION: 1: No significant intracranial vascular abnormality. 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 3: Stenosis at the origin of the left internal carotid artery measuring 65%. Chest xray: IMPRESSION: : Small opacities in the mid and lower lungs which represents atelectasis/scarring or infiltrates. CBC was without significant abnormalities. Creatinine mildly elevated but at baseline, remaining CMP without significant abnormalities. Alcohol Level-0 - neurology consult is pending - MRI brain ordered - aspirin 162 daily but no Plavix at this time per neurology recommendations - pt was started on Rocephin for UTI as this could be the reason for her metabolic encephalopathy home meds were reviewed and restarted per dip brazier pt is full code lovenox started per overnight provider for dvt prophylaxis Quality VTE Prophylaxis VTE prophylaxis: pharmacologic ordered Hospitalist [facility] Advance Care Plan I have confirmed that the patient's Advanced Care Plan is present, code status is documented, or surrogate decision maker is listed in patient medical record.: Yes Medication Reconciliation I have utilized all available resources to obtain, update and review the patients current medications (includes all prescriptions, OTC, herbals, cannabis, and nutritional supplements).: Yes
[2025-06-03] MEDS: ROSUVASTATIN 20 MG TABLET 40 MG PO (08:10)
[2025-06-03] MEDS: INDAPAMIDE 2.5 MG TABLET PO (08:10)
[2025-06-03] MEDS: CYANOCOBALAMIN 1,000 MCG TABLET 1000 MCG PO (08:10)
[2025-06-03] MEDS: METOPROLOL SUCCINATE EXT REL 25 MG TABCR PO (08:11)
[2025-06-03] MEDS: ASPIRIN 81 MG ENTERIC TABLET 162 MG PO (08:12)
[2025-06-03] MEDS: ENOXAPARIN 30 MG/0.3 ML SYRINGE SUB-Q (08:12)
[2025-06-03] MEDS: VALSARTAN 160 MG TABLET 320 MG PO (08:13)
[2025-06-03] MEDS: ALPRAZolam (*CRX) 0.25 MG TABLET PO ×2 (10:16→15:23)
[2025-06-03] MEDS: INSULIN ASPART (*BKC) 100 UNITS/ML SUB-Q (12:24)
[2025-06-03] MEDS: LORazepam (*CRX) 0.5 MG TABLET PO (14:14)
[2025-06-03] MEDS: cefTRIAXone 2 GM in SODIUM CHLORIDE 0.9% IV 100 ML 200 ML IVPB (15:18)
--- NOTE | 2025-06-03 15:19 | PCNEURO ---
Pt currently trying to leave AMA. Talked with nurse about attempting tomorrow after outpatient.
--- NOTE | 2025-06-03 17:03 | WPDNEURCNPN ---
Assessment and Plan Assessment and plan (1) Acute metabolic encephalopathy: Code(s): G93.41 - Metabolic encephalopathy Status: Acute (2) Dementia of Alzheimer's type with behavioral disturbance: Code(s): G30.9 - Alzheimer's disease, unspecified; F02.818 - Dementia in other diseases classified elsewhere, unspecified severity, with other behavioral disturbance Status: Acute Assessment and Plan: the patient has had memory problems for some time been treated with Aricept. 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 Diabetes mellitus complication status: with kidney complications Diabetes mellitus complication detail: with microalbuminuria Qualified Code(s): E11.29 - Type 2 diabetes mellitus with other diabetic kidney complication; R80.9 - Proteinuria, unspecified Code(s): E11.9 - Type 2 diabetes mellitus without complications Status: Acute (4) Chronic renal insufficiency, stage III (moderate): Code(s): N18.30 - Chronic kidney disease, stage 3 unspecified Status: Acute (5) Acute UTI: Code(s): N39.0 - Urinary tract infection, site not specified Status: Acute Plan The patient was suspected of having urinary tract infection and was given some antibiotics in a physician's office before she came to the hospital. Of course this is being followed up. I also wondered about slight weakness on the left side of the body. MRI of the brain was full of motion artifact. There are some nonspecific changes but no changes on the DWI sequence or evidence for any new stroke. An echocardiogram was also performed did not show any significant abnormalities. I suggest an EEG. We considered the use of Seroquel however there is a drug interaction with the Aricept hence it was decided to use benzodiazepine such as Ativan for behavior problems. I noted the dose of clonazepam has been decreased to 10 mg a day. Patient is still on IV antibiotics and vitamin B12 supplements. She is also on Crestor 40 mg a day. Her random LDL drawn at 4 p.m. yesterday was high at 107. Vitamin-D level was low at 21 on 01/29/2025. Previous LDL of level done in January this year was 67. at some point we may have to add Namenda from the point of view memory. An EEG is also recommended. We should follow the progress as she gets treated for urinary tract infection. I reviewed MRI of the brain as a CT scan of of the brain and CT angiogram head and neck. As mentioned above she was found to have a small lacunar infarct in the CT scan of brain. CT angiogram has shown 51% narrowing in the right internal and 65% the left internal carotid artery. Since there is no vascular injury in the distribution these vessels this can be followed up clinically over the course of time. Consult date: 06/03/25 HPI: Michelle Montiel is a 79 year old female with history of dementia presented to the hospital with confusional state and slurring of the speech. Symptoms started yesterday around 315. The patient also has history of diabetes mellitus and chronic kidney disease. Her was present the time the evaluation. Patient was suspected of urinary tract infection and being treated for the same. CT angiogram head and neck was performed in the emergency room which shows 50% narrowing of the right internal carotid artery and 65% the left internal carotid artery. But no new stroke or a significant acute findings were noted. The patient has been rather noisy and sometimes difficult to handle and according to the nursing staff she may require some sedation or sitter is arranged accordingly. There is also some suspicion of some weakness on the left side of the body. There is no definite history of prior stroke. CT scan of brain has shown an old lacunar infarct in the left side. Mental status has not changed much since admission yesterday. Review of Systems Review of Systems: No specific symptoms reported by the patient or . The patient has been taking medications for memory loss specifically she was on Aricept 20 mg a day. [facility] Past Medical History Medical History (Updated 06/03/25 @ 17:08 by Raegan Finney MD) Dementia of Alzheimer's type with behavioral disturbance Chronic renal insufficiency, stage III (moderate) Anemia Palpitations Hyperlipidemia GERD (gastroesophageal reflux disease) Accelerated essential hypertension Type 2 diabetes mellitus Surgical History Surgical History History of ear surgery (~2020) left tube removal - hole inner ear History of ankle surgery History of arthroplasty of both wrists Hx laparoscopic cholecystectomy Family History Family History Grandparent Diabetes mellitus Mother Diabetes mellitus Social History Social History Smoking status: Never smoker Second hand tobacco smoke exposure: No Alcohol intake: never Substance use: never Substance use type: does not use Lack of Transportation: No Lack of Food: Never True Current Housing: I Have Housing Concerned About Future Housing: No Difficulty Paying Gas/Electric Bills: No Difficulty Paying for Meds: No Currently Unemployed: No Education: High School Diploma/GED Difficulty w/ Childcare or Family Care: No Living arrangements: with family Occupation/Education: retired Gender identity (if verbalized by the patient): Female Sexual Orientation (if Verbalized by the Patient): Straight or Heterosexual Spiritual care concerns: No Agree to blood products: Yes Meds Home Medications and Allergies Home Medications ?Medication ?Instructions ?Recorded ?Confirmed ?Type mecobalamin (vitamin B12) 1,000 1,000 mcg sublingual DAILY #90 tabs 02/01/22 06/02/25 Rx mcg disintegrating tablet,sublingual metformin 500 mg tablet 500 mg PO BID #180 tabs 02/04/24 06/01/25 Rx atorvastatin 40 mg tablet 40 mg PO DAILY #90 tabs 04/29/24 06/02/25 Rx alprazolam 0.25 mg tablet 0.25 mg PO TID PRN anxiety #90 tabs 07/15/24 06/02/25 Rx valsartan 320 mg tablet 320 mg PO DAILY #90 tabs 09/07/24 06/02/25 Rx metoprolol succinate 25 mg 25 mg PO DAILY #90 tabs 03/01/25 06/02/25 Rx tablet,extended release 24 hr sitagliptin phosphate 100 mg 100 mg PO DAILY #90 tabs 05/20/25 06/02/25 Rx tablet (Januvia) sulfamethoxazole 400 1 tablet PO Q12H 7 days #14 tabs 06/01/25 06/01/25 Rx mg-trimethoprim 80 mg tablet donepezil 10 mg tablet 10 mg PO QHS 06/02/25 06/02/25 History indapamide 2.5 mg tablet 2.5 mg PO DAILY@0800 06/02/25 06/02/25 History Allergies Allergy/AdvReac Type Severity Reaction Status Date / Time codeine Allergy Unknown Unknown Verified 06/03/25 10:02 Penicillins Allergy Unknown Unknown Verified 06/01/25 09:02 Vital Signs Vital Signs - 24 hr 06/02/25 19:15 06/02/25 19:27 06/02/25 19:27 Temperature Pulse Rate 83 78 Respiratory Rate 19 Blood Pressure 122/81 Pulse Oximetry 100 98 06/03/25 00:00 06/03/25 04:00 06/03/25 04:29 Temperature 98.2 F Pulse Rate 56 L 51 L 60 Respiratory Rate 18 Blood Pressure 179/76 H Pulse Oximetry 98 06/03/25 08:05 06/03/25 08:11 06/03/25 12:06 Temperature Pulse Rate 72 70 55 L Respiratory Rate Blood Pressure Pulse Oximetry 06/03/25 14:00 Temperature 97.9 F Pulse Rate 60 Respiratory Rate 18 Blood Pressure 170/70 H Pulse Oximetry 99 Exam Narrative: Patient is fully conscious alert. No aphasia or dysarthria. She has a moderate degree of memory loss and cognitive impairment he is unable to follow 2 step commands. Also has difficulty repeating a complete sentence. Exam her cranial nerves were grossly intact. No facial asymmetry tongue was midline the pupils were equal reactive light. Visual goldstein grossly intact. Extraocular movements intact. Motor system normal power and tone in both upper lower limbs however there is some suspicion of mild weakness in the left upper and lower limb. Also later I thought that the left nasolabial fold appears somewhat less prominent than the right side. Deep tendon reflexes however did not show any significant asymmetry. Results Labs 06/03/25 05:36 06/03/25 05:36 Labs: Short CBC 06/03/25 Range/Units 05:36 WBC 5.4 (4.5-10.0) K/mm3 Hgb 11.9 L (12.0-15.0) g/dL Hct 36.7 L (37.0-47.0) % Plt Count 139 L (150-375) k/mm3 BMP 06/03/25 05:36 Sodium 134 L Potassium 4.2 Chloride 102 Carbon Dioxide 25 BUN 16 Creatinine 1.22 H Glucose 133 H Calcium 9.1 Cardiac Enzymes 06/02/25 Range/Units 16:35 Troponin I < 0.012 (0.000-0.034) ng/mL Liver Function 06/03/25 Range/Units 05:36 Total Bilirubin 0.7 (0.2-1.3) mg/dL AST 25 (14-36) U/L ALT 7 (6-35) U/L Alkaline Phosphatase 103 (38-126) U/L Albumin 4.0 (3.5-5.1) g/dL
[2025-06-04] VITALS (13 sets, daily range): BP systolic 112–189; BP diastolic 42–86; PULSE 48–86; RESP 16–18; TEMP 36.3–36.6; O2SAT 96–100
--- NOTE | 2025-06-04 00:33 | P.PNCROSS_ITS ---
Event Note Event Note Event Note: the patient was very restless and attempted to climb out of bed. she also threa tened staff members . she had become aggressive today staff . medications ordered for aggression and safety restraints.
[2025-06-04] MEDS: HALOPERIDOL LACTATE 5 MG/ML VIAL IM ×2 (00:38→16:50)
[2025-06-04] MEDS: diazePAM INJ (*CRX) 10 MG/2 ML SYRINGE 5 MG IV PUSH (00:45)
[2025-06-04 05:40] LABS: Hematocrit 39.2 % (37.0-47.0); Hemoglobin 12.7 g/dL (12.0-15.0); Immature Granulocyte Percent A 0.8 % (0-0.5); Lymphocytes Absolute Auto 2.06 K/mm3 (0.9-3.2); Mean Corpuscular HGB Conc 32.4 g/dl (32-36); Mean Corpuscular Hemoglobin 28.5 pg (26-34); Mean Corpuscular Volume 87.9 fl (80-100); Nucleated Red Blood Cells Absolute Auto 0.000 K/mm3 (0.0-0.012); Nucleated Red Blood Cells Perc 0.0 % (0.0-0.2); Platelet Count Result 140 k/mm3 (150-375); Red Blood Count 4.46 M/mm3 (4.2-5.4); White Blood Count 5.0 K/mm3 (4.5-10.0)
[2025-06-04 06:03] LABS: Alanine Aminotransferase 10 U/L (6-35); Albumin Level 4.2 g/dL (3.5-5.1); Alkaline Phosphatase 121 U/L (38-126); Anion Gap 9 mmol/L (4-12); Aspartate Amino Transferase 34 U/L (14-36); Bilirubin,Total 0.7 mg/dL (0.2-1.3); Blood Urea Nitrogen 14 mg/dL (7-17); Calcium 9.3 mg/dL (8.4-10.2); Carbon Dioxide 26 mmol/L (22-30); Chloride 101 mmol/L (98-107); Estimated CRCL calculation 30 ml/min; Estimated Glomerular Filt Rate 42; Glucose 124 mg/dL (65-110); Magnesium 2.1 mg/dL (1.6-2.3); Potassium 3.6 mmol/L (3.4-5.0); Sodium 136 mmol/L (137-145); Total Protein 7.0 g/dL (6.3-8.2)
[2025-06-04 06:24] LABS: Acanthocytes 1+; Ovalocytes Occasional; Schistocytes None Seen
[2025-06-04] MEDS: CYANOCOBALAMIN 1,000 MCG TABLET 1000 MCG PO (10:18)
[2025-06-04] MEDS: METOPROLOL SUCCINATE EXT REL 25 MG TABCR PO (10:18)
[2025-06-04] MEDS: ASPIRIN 81 MG ENTERIC TABLET 162 MG PO (10:18)
[2025-06-04] MEDS: VALSARTAN 160 MG TABLET 320 MG PO (10:19)
[2025-06-04] MEDS: INDAPAMIDE 2.5 MG TABLET PO (10:20)
[2025-06-04] MEDS: ENOXAPARIN 30 MG/0.3 ML SYRINGE SUB-Q (10:20)
[2025-06-04] MEDS: ROSUVASTATIN 20 MG TABLET 40 MG PO (10:20)
--- NOTE | 2025-06-04 10:37 | PC.NURSE ---
pt was sleeping soundly this morning, meds and care deferred until pt was able to wake up and eat some breakfast, at beside, pt is being pleasant at the moment
--- NOTE | 2025-06-04 12:07 | PM.IMPN ---
Progress Note: A&P Assessment and Plan (1) Primary hypertension: Code(s): I10 - Essential (primary) hypertension Status: Acute (2) Hyperlipidemia: Qualifiers: Hyperlipidemia type: mixed hyperlipidemia Qualified Code(s): E78.2 - Mixed hyperlipidemia Code(s): E78.5 - Hyperlipidemia, unspecified Status: Acute (3) Anxiety: Code(s): F41.9 - Anxiety disorder, unspecified Status: Acute (4) Type 2 diabetes mellitus: Qualifiers: Diabetes mellitus long-term insulin use: without long-term use Diabetes mellitus complication status: with kidney complications Diabetes mellitus complication detail: with microalbuminuria Qualified Code(s): E11.29 - Type 2 diabetes mellitus with other diabetic kidney complication; R80.9 - Proteinuria, unspecified Code(s): E11.9 - Type 2 diabetes mellitus without complications Status: Acute (5) GERD (gastroesophageal reflux disease): Qualifiers: Esophagitis presence: without esophagitis Qualified Code(s): K21.9 - Gastro-esophageal reflux disease without esophagitis Code(s): K21.9 - Gastro-esophageal reflux disease without esophagitis Status: Acute (6) Acute UTI: Code(s): N39.0 - Urinary tract infection, site not specified Status: Acute (7) Anemia: Code(s): D64.9 - Anemia, unspecified Status: Acute (8) Acute metabolic encephalopathy: Code(s): G93.41 - Metabolic encephalopathy Status: Acute Plan 79-year-old female with history of CKD, anxiety, GERD, diabetes, hypertension admitted for altered mental status. In ED: patient was alert and oriented x2 with no focal neurologic deficits. NIHSS was rather limited due to her significant hard of hearing but no focal deficits. CT head-IMPRESSION: 1. No acute intracranial abnormality. 2: Chronic left lacunar infarction. CTA: IMPRESSION: 1: No significant intracranial vascular abnormality. 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 3: Stenosis at the origin of the left internal carotid artery measuring 65%. Chest xray: IMPRESSION: : Small opacities in the mid and lower lungs which represents atelectasis/scarring or infiltrates. CBC was without significant abnormalities. Creatinine mildly elevated but at baseline, remaining CMP without significant abnormalities. Alcohol Level-0 - neurology consult is pending - MRI brain ordered - aspirin 162 daily but no Plavix at this time per neurology recommendations - pt was started on Rocephin for UTI as this could be the reason for her metabolic encephalopathy home meds were reviewed and restarted per inspector handbag frames pt is full code lovenox started per overnight provider for dvt prophylaxis 06/04 - restless overnight- required restrains and valium continue to be confused but this morning calm and quite eeg now neurology following -continue with antibiotics for uti with IV follow urine culture and adjust as indicated try to avoid restrains, utilizing distractions, family - presence, etc Time Spent With Patient Time with patient: Greater than 35 minutes Subjective Date/time seen: 06/04/25 12:07 Interval history: 79-year-old female with history of CKD, anxiety, GERD, diabetes, hypertension admitted for altered mental status. Per patient's , patient was diagnosed with a UTI yesterday at her PCPs office and she has taken 2 doses of Keflex. Later in a day, she began to slur her words and have significant memory loss prompting to bring her in for further evaluation. She has no known history of strokes. She is not on any blood thinners. He states that at this time, her slurred speech has improved. In ED: patient was alert and oriented x2 with no focal neurologic deficits. NIHSS was rather limited due to her significant hard of hearing but no focal deficits. 06/04- pt is seen and examined. She got restless overnight and was requiring restrains and Valium. She is a lot better this morning, calm and quite, took her morning meds ok. Currently undergoing EEG. Review of Systems Review of Systems: All systems reviewed & are unremarkable except as noted in HPI and below (h/p) Exam Narrative: resting in bed, calm and quite. Const: General: comfortable Resp: Effort & Inspection: normal respiratory effort Auscultation: clear to auscultation bilaterally Cardio: Rate: regular rate Rhythm: regular rhythm GI: Auscultation: normal bowel sounds Skin: General skin exam: normal color Neuro: Other: decreased strength, no slurred speech, no facial droop noted, confused Extrem: General: normal to inspection Psych: Affect: normal affect Other: calm Objective Data Vital Signs Vital Signs: Vital Signs - 24 hr 06/03/25 14:00 06/03/25 19:31 06/04/25 00:30 Temperature 97.9 F Pulse Rate 60 78 63 Respiratory Rate 18 18 Blood Pressure 170/70 H 144/59 H 154/49 H Pulse Oximetry 99 97 97 06/04/25 01:11 06/04/25 01:28 06/04/25 01:45 Temperature Pulse Rate 61 59 L Respiratory Rate 16 Blood Pressure 131/64 159/52 H 151/66 H Pulse Oximetry 100 98 97 06/04/25 02:00 06/04/25 03:00 06/04/25 04:00 Temperature 97.6 F Pulse Rate 63 86 58 L Respiratory Rate 16 Blood Pressure 175/65 H 189/52 H 153/83 H Pulse Oximetry 100 97 100 06/04/25 05:00 06/04/25 06:00 06/04/25 06:55 Temperature Pulse Rate 54 L 48 L 51 L Respiratory Rate 16 Blood Pressure 153/42 H 151/61 H 154/52 H Pulse Oximetry 100 96 99 06/04/25 10:18 Temperature Pulse Rate 60 Respiratory Rate Blood Pressure Pulse Oximetry Intake/Output Intake/Output: Intake & Output 06/01/25 06/02/25 06/03/25 06/04/25 23:59 23:59 23:59 23:59 Intake Total 100 990 Balance 100 990 Meds/Results Medications: Active Medications Generic Name Dose Route Start Last Admin Trade Name Freq PRN Reason Stop Dose Admin Aspirin 162 mg 06/03/25 09:00 06/04/25 10:18 Aspirin 81 Mg Enteric Tablet PO 162 mg QAM MANAV Administration Cyanocobalamin 1,000 mcg 06/03/25 09:00 06/04/25 10:18 Cyanocobalamin 1,000 Mcg Tablet PO 1,000 mcg QAM MANAV Administration Dextrose 12.5 gm 06/02/25 22:02 Dextrose 50% 25 Gm/50 Ml Syringe IV PUSH PRN PRN Hypoglycemia Protocol Diphenhydramine HCl 25 mg 06/04/25 00:05 06/04/25 00:40 Diphenhydramine Hcl Inj 50 Mg/Ml Vial IV PUSH 25 mg Q4H PRN Administration Itching Donepezil HCl 10 mg 06/02/25 23:50 06/03/25 19:32 Donepezil Hcl 10 Mg Tablet PO 10 mg QHS MANAV Administration Enoxaparin Sodium 30 mg 06/03/25 09:00 06/04/25 10:20 Enoxaparin 30 Mg/0.3 Ml Syringe SUB-Q 30 mg DAILY MANAV Administration Glucagon 1 mg 06/02/25 22:02 Glucagon For Inj 1 Mg Vial IM PRN PRN Hypoglycemia Protocol Glucose 15 gm 06/02/25 22:02 Glucose Oral Gel 15 Gm Of Glucse In 37.5 Gm Tube PO PRN PRN Hypoglycemia Protocol Dextrose 1,000 mls @ 100 mls/hr 06/02/25 22:02 Dextrose 5% 1,000 Ml IVPB PRN PRN Hypoglycemia Protocol Ceftriaxone Sodium 2 gm/ 100 mls @ 200 mls/hr 06/03/25 16:00 06/03/25 15:18 Sodium Chloride IVPB 200 mls/hr Q24H MANAV Administration Indapamide 2.5 mg 06/03/25 08:00 06/04/25 10:20 Indapamide 2.5 Mg Tablet PO 2.5 mg DAILY@0800 MANAV Administration Insulin Aspart 2 - 5 units 06/03/25 08:00 06/04/25 12:00 Insulin Aspart (*Bkc) 100 Units/Ml SUB-Q Not Given TIDWM MANAV Protocol Lorazepam 0.5 mg 06/03/25 14:00 06/04/25 07:00 Lorazepam (*Crx) 0.5 Mg Tablet PO Not Given Q8HR MANAV Metoprolol Succinate 25 mg 06/03/25 09:00 06/04/25 10:18 Metoprolol Succinate Ext Rel 25 Mg Tabcr PO 25 mg DAILY MANAV Administration Perflutren Lipid Microsphere 0 ml 06/02/25 22:03 Perflutren Lipid Microspheres 1.5 Ml Vial Diluted To 10 Ml Total Volume IV PUSH 06/05/25 22:03 ONCE PRN adequate visualization Protocol Rosuvastatin Calcium 40 mg 06/03/25 09:00 06/04/25 10:20 Rosuvastatin 20 Mg Tablet PO 40 mg QAM MANAV Administration Sitagliptin Phosphate 100 mg 06/03/25 09:00 06/04/25 10:19 Sitagliptin Phosphate 100 Mg Tablet PO 100 mg DAILY MANAV Administration Valsartan 320 mg 06/03/25 09:00 06/04/25 10:19 Valsartan 160 Mg Tablet PO 320 mg QAM MANAV Administration Radiology Results: ITS Impressions Head CT 06/02/25 16:22 IMPRESSION: 1. No acute intracranial abnormality. 2: Chronic left lacunar infarction. Chest X-Ray 06/02/25 16:50 IMPRESSION: 1: Small opacities in the mid and lower lungs which represents atelectasis/scarring or infiltrates. Head/Neck CTA 06/02/25 18:08 IMPRESSION: 1: No significant intracranial vascular abnormality. 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 3: Stenosis at the origin of the left internal carotid artery measuring 65%. Brain MRI 06/03/25 13:45 IMPRESSION: 1. No acute intracranial process. 2. Age-related changes in the brain including mild diffuse volume loss and mild scattered white matter T2 hyperintensity consistent with chronic small vessel ischemic disease. Labs Labs: Laboratory Results - last 24 hr 06/03/25 06/04/25 06/04/25 17:03 05:34 09:14 WBC 5.0 RBC 4.46 Hgb 12.7 Hct 39.2 MCV 87.9 MCH 28.5 MCHC 32.4 RDW 13.4 Plt Count 140 L MPV 12.2 H Immature Gran % (Auto) 0.8 H Neut % (Auto) 46.3 Lymph % (Auto) 41.4 [place] % (Auto) 11.3 H Eos % (Auto) 0.0 Baso % (Auto) 0.2 Lymph # (Auto) 2.06 [place] # (Auto) 0.6 Eos # (Auto) 0.0 Baso # (Auto) 0.0 Abs Immat Gran (auto) 0.04 H Absolute Neuts (auto) 2.3 Absolute Nucleated RBC 0.000 Band Neutrophils % Not Reportable Nucleated RBC % 0.0 Platelet Estimate Slightly decreased Ovalocytes Occasional Acanthocytes (Spur) 1+ Schistocytes None seen Sodium 136 L Potassium 3.6 Chloride 101 Carbon Dioxide 26 Anion Gap 9 BUN 14 Creatinine 1.24 H Estim Creat Clear Calc 30 Estimated GFR 42 L Glucose 124 H POC Capillary Glucose 197 H 130 H Calcium 9.3 Magnesium 2.1 Total Bilirubin 0.7 AST 34 ALT 10 Alkaline Phosphatase 121 Total Protein 7.0 Albumin 4.2 06/04/25 11:55 WBC RBC Hgb Hct MCV MCH MCHC RDW Plt Count MPV Immature Gran % (Auto) Neut % (Auto) Lymph % (Auto) [place] % (Auto) Eos % (Auto) Baso % (Auto) Lymph # (Auto) [place] # (Auto) Eos # (Auto) Baso # (Auto) Abs Immat Gran (auto) Absolute Neuts (auto) Absolute Nucleated RBC Band Neutrophils % Nucleated RBC % Platelet Estimate Ovalocytes Acanthocytes (Spur) Schistocytes Sodium Potassium Chloride Carbon Dioxide Anion Gap BUN Creatinine Estim Creat Clear Calc Estimated GFR Glucose POC Capillary Glucose 181 H Calcium Magnesium Total Bilirubin AST ALT Alkaline Phosphatase Total Protein Albumin Quality VTE Prophylaxis VTE prophylaxis: pharmacologic ordered
[2025-06-04] MEDS: LORazepam (*CRX) 0.5 MG TABLET PO ×2 (13:48→20:54)
[2025-06-04] MEDS: cefTRIAXone 2 GM in SODIUM CHLORIDE 0.9% IV 100 ML 200 ML IVPB (16:56)
[2025-06-04] MEDS: ACETAMINOPHEN 325 MG TABLET 650 MG PO (19:39)
[2025-06-04] MEDS: DONEPEZIL HCL 10 MG TABLET PO (20:54)
[2025-06-05] MEDS: ACETAMINOPHEN 325 MG TABLET 650 MG PO ×2 (00:33→06:11)
[2025-06-05 06:00] VITALS: BP 147/47; PULSE 62; RESP 18; TEMP 36.6; O2SAT 97
[2025-06-05] MEDS: LORazepam (*CRX) 0.5 MG TABLET PO ×3 (06:11→22:06)
[2025-06-05 06:22] LABS: Hematocrit 38.4 % (37.0-47.0); Hemoglobin 12.5 g/dL (12.0-15.0); Immature Granulocyte Percent A 0.4 % (0-0.5); Lymphocytes Absolute Auto 1.90 K/mm3 (0.9-3.2); Mean Corpuscular HGB Conc 32.6 g/dl (32-36); Mean Corpuscular Hemoglobin 28.3 pg (26-34); Mean Corpuscular Volume 86.9 fl (80-100); Nucleated Red Blood Cells Absolute Auto 0.000 K/mm3 (0.0-0.012); Nucleated Red Blood Cells Perc 0.0 % (0.0-0.2); Platelet Count Result 140 k/mm3 (150-375); Red Blood Count 4.42 M/mm3 (4.2-5.4); White Blood Count 5.0 K/mm3 (4.5-10.0)
[2025-06-05 06:45] LABS: Alanine Aminotransferase 10 U/L (6-35); Albumin Level 4.0 g/dL (3.5-5.1); Alkaline Phosphatase 118 U/L (38-126); Anion Gap 8 mmol/L (4-12); Aspartate Amino Transferase 36 U/L (14-36); Bilirubin,Total 0.6 mg/dL (0.2-1.3); Blood Urea Nitrogen 22 mg/dL (7-17); Calcium 9.0 mg/dL (8.4-10.2); Carbon Dioxide 26 mmol/L (22-30); Chloride 100 mmol/L (98-107); Estimated CRCL calculation 26 ml/min; Estimated Glomerular Filt Rate 35; Glucose 139 mg/dL (65-110); Magnesium 2.1 mg/dL (1.6-2.3); Potassium 4.1 mmol/L (3.4-5.0); Sodium 134 mmol/L (137-145); Total Protein 6.7 g/dL (6.3-8.2)
[2025-06-05] MEDS: INDAPAMIDE 2.5 MG TABLET PO (09:17)
[2025-06-05] MEDS: ROSUVASTATIN 20 MG TABLET 40 MG PO (09:18)
[2025-06-05] MEDS: METOPROLOL SUCCINATE EXT REL 25 MG TABCR PO (09:18)
[2025-06-05] MEDS: ASPIRIN 81 MG ENTERIC TABLET 162 MG PO (09:18)
[2025-06-05] MEDS: CYANOCOBALAMIN 1,000 MCG TABLET 1000 MCG PO (09:18)
[2025-06-05] MEDS: VALSARTAN 160 MG TABLET 320 MG PO (09:19)
[2025-06-05] MEDS: ENOXAPARIN 30 MG/0.3 ML SYRINGE SUB-Q (09:19)
--- NOTE | 2025-06-05 13:07 | P.PNIM_ITS ---
Progress Note: A&P Assessment and Plan (1) Acute UTI: Code(s): N39.0 - Urinary tract infection, site not specified Status: Acute Assessment and Plan: * 06/01/2025 received TMP-SMZ DS * 06/02/2025 began ceftriaxone * 06/05/2025 as inpatient c/s negative and no outpatient c/s available, stopped ceftriaxone after 5th day of antibiotics (2) Acute kidney injury: Code(s): N17.9 - Acute kidney failure, unspecified Status: Acute Assessment and Plan: * Creatinine increased from 05/28/2025 1.26 * 06/05/2025 1.43 * Consider due to UTI, decreased PO intake, diuretic use (continued at admission though 06/01/2025 outpatient notes indicated she was not taking indapamide) * 06/05/2025 stopped indapamide, encouraged po intake (3) Acute metabolic encephalopathy: Code(s): G93.41 - Metabolic encephalopathy Status: Acute Assessment and Plan: * Likely due to UTI * Benzo withdrawal unlikely per hx from family (only prn alprazolam use, not daily) * Receiving lorazepam 0.5 mg q 8 hr while inpatient * Unlikely reaction to increased dose of donepezil * Possible drug reaction to TMP-SMZ * Underlying Alzheimer dementia * 06/05/2025 not yet at baseline per family (4) Primary hypertension: Code(s): I10 - Essential (primary) hypertension Status: Acute Assessment and Plan: * 06/05/2025 147/47, continue to monitor (5) Anxiety: Code(s): F41.9 - Anxiety disorder, unspecified Status: Acute Assessment and Plan: * Takes prn alprazolam at home, not even daily per family's hx * Due to agitation, receiving scheduled lorazepam 0.5 mg q 8 hr while hospitalized (6) Type 2 diabetes mellitus: Qualifiers: Diabetes mellitus exterminator insulin use: without snf use Diabetes mellitus complication status: with kidney complications Diabetes mellitus complication detail: with microalbuminuria Qualified Code(s): E11.29 - Type 2 diabetes mellitus with other diabetic kidney complication; R80.9 - Proteinuria, unspecified Code(s): E11.9 - Type 2 diabetes mellitus without complications Status: Acute Assessment and Plan: * 06/05/2025 FBS 139 (7) GERD (gastroesophageal reflux disease): Qualifiers: Esophagitis presence: without esophagitis Qualified Code(s): K21.9 - Gastro-esophageal reflux disease without esophagitis Code(s): K21.9 - Gastro-esophageal reflux disease without esophagitis Status: Acute (8) Anemia: Code(s): D64.9 - Anemia, unspecified Status: Acute Assessment and Plan: * 06/05/2025 Hgb 12.5 (9) Hyperlipidemia: Qualifiers: Hyperlipidemia type: mixed hyperlipidemia Qualified Code(s): E78.2 - Mixed hyperlipidemia Code(s): E78.5 - Hyperlipidemia, unspecified Status: Acute Subjective Date/time seen: 06/05/25 13:07 Interval history: Lower back pain resolved. Ate well. Denied chest pain, sob, gi/gu issues. Ambulates to bathroom. Review of Systems Review of Systems: All systems reviewed & are unremarkable except as noted in HPI and below Exam Narrative: HEENT: PERRL, sclerae nonicteric, pharyngeal mucosa pink and intact NECK: No JVD, adenopathy, or thyromegaly CHEST: Clear to auscultation. Normal effort HEART: NL S1/S2, regular, no murmur ABDOMEN: BS+, soft, nontender, no mass, no bruits, CVA nontender EXTREMITIES: No cyanosis, edema, or clubbing NEUROLOGIC: CN intact and symmetric to inspection, speech clear, followed commands, band saw operator, dorsiflexion, plantar flexion all intact MUSCULOSKELETAL: No deformity to visual inspection PSYCH: Alert, oriented to person only, thought she was in [place] and did not know name of building, did not know year or month Objective Data Vital Signs Vital Signs: Vital Signs - 24 hr 06/04/25 14:00 06/04/25 22:00 06/05/25 06:00 Temperature 97.3 F L 97.9 F 97.9 F Pulse Rate 64 61 62 Respiratory Rate 16 18 18 Blood Pressure 128/50 L 112/86 147/47 H Pulse Oximetry 98 100 97 Intake/Output Intake/Output: Intake & Output 06/02/25 06/03/25 06/04/25 06/05/25 23:59 23:59 23:59 23:59 Intake Total 100 1090 820 480 Balance 100 1090 820 480 Meds/Results Medications: Active Medications Generic Name Dose Route Start Last Admin Trade Name Freq PRN Reason Stop Dose Admin Acetaminophen 650 mg 06/04/25 16:29 06/05/25 06:11 Acetaminophen 325 Mg Tablet PO 650 mg Q6H PRN Administration Mild Pain (1-3) or Fever Aspirin 162 mg 06/03/25 09:00 06/05/25 09:18 Aspirin 81 Mg Enteric Tablet PO 162 mg QAM MANAV Administration Cyanocobalamin 1,000 mcg 06/03/25 09:00 06/05/25 09:18 Cyanocobalamin 1,000 Mcg Tablet PO 1,000 mcg QAM MANAV Administration Dextrose 12.5 gm 06/02/25 22:02 Dextrose 50% 25 Gm/50 Ml Syringe IV PUSH PRN PRN Hypoglycemia Protocol Diphenhydramine HCl 25 mg 06/04/25 00:05 06/04/25 23:55 Diphenhydramine Hcl Inj 50 Mg/Ml Vial IV PUSH 25 mg Q4H PRN Administration Itching Donepezil HCl 10 mg 06/02/25 23:50 06/04/25 20:54 Donepezil Hcl 10 Mg Tablet PO 10 mg QHS MANAV Administration Enoxaparin Sodium 30 mg 06/03/25 09:00 06/05/25 09:19 Enoxaparin 30 Mg/0.3 Ml Syringe SUB-Q 30 mg DAILY MANAV Administration Glucagon 1 mg 06/02/25 22:02 Glucagon For Inj 1 Mg Vial IM PRN PRN Hypoglycemia Protocol Glucose 15 gm 06/02/25 22:02 Glucose Oral Gel 15 Gm Of Glucse In 37.5 Gm Tube PO PRN PRN Hypoglycemia Protocol Dextrose 1,000 mls @ 100 mls/hr 06/02/25 22:02 Dextrose 5% 1,000 Ml IVPB PRN PRN Hypoglycemia Protocol Ceftriaxone Sodium 1 gm/ 100 mls @ 200 mls/hr 06/05/25 13:00 Sodium Chloride IVPB QAM MANAV Insulin Aspart 2 - 5 units 06/03/25 08:00 06/05/25 11:51 Insulin Aspart (*Bkc) 100 Units/Ml SUB-Q Not Given TIDWM [facility] Protocol Lorazepam 0.5 mg 06/03/25 14:00 06/05/25 06:11 Lorazepam (*Crx) 0.5 Mg Tablet PO 0.5 mg Q8HR MANAV Administration Metoprolol Succinate 25 mg 06/03/25 09:00 06/05/25 09:18 Metoprolol Succinate Ext Rel 25 Mg Tabcr PO 25 mg DAILY MANAV Administration Perflutren Lipid Microsphere 0 ml 06/02/25 22:03 Perflutren Lipid Microspheres 1.5 Ml Vial Diluted To 10 Ml Total Volume IV PUSH 06/05/25 22:03 ONCE PRN adequate visualization Protocol Rosuvastatin Calcium 40 mg 06/03/25 09:00 06/05/25 09:18 Rosuvastatin 20 Mg Tablet PO 40 mg QAM MANAV Administration Sitagliptin Phosphate 100 mg 06/03/25 09:00 06/05/25 09:17 Sitagliptin Phosphate 100 Mg Tablet PO 100 mg DAILY MANAV Administration Valsartan 320 mg 06/03/25 09:00 06/05/25 09:19 Valsartan 160 Mg Tablet PO 320 mg QAM MANAV Administration Radiology Results: ITS Impressions Head CT 06/02/25 16:22 IMPRESSION: 1. No acute intracranial abnormality. 2: Chronic left lacunar infarction. Chest X-Ray 06/02/25 16:50 IMPRESSION: 1: Small opacities in the mid and lower lungs which represents atelectasis/sca rring or infiltrates. Head/Neck CTA 06/02/25 18:08 IMPRESSION: 1: No significant intracranial vascular abnormality. 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 3: Stenosis at the origin of the left internal carotid artery measuring 65%. Brain MRI 06/03/25 13:45 IMPRESSION: 1. No acute intracranial process. 2. Age-related changes in the brain including mild diffuse volume loss and mild scattered white matter T2 hyperintensity consistent with chronic small vessel ischemic disease. Labs Labs: Laboratory Results - last 24 hr 06/04/25 06/04/25 06/05/25 16:52 20:01 06:17 WBC 5.0 RBC 4.42 Hgb 12.5 Hct 38.4 MCV 86.9 MCH 28.3 MCHC 32.6 RDW 13.5 Plt Count 140 L MPV 12.1 H Immature Gran % (Auto) 0.4 Neut % (Auto) 50.2 Lymph % (Auto) 38.3 [place] % (Auto) 10.7 H Eos % (Auto) 0.2 Baso % (Auto) 0.2 Lymph # (Auto) 1.90 [place] # (Auto) 0.5 Eos # (Auto) 0.0 Baso # (Auto) 0.0 Abs Immat Gran (auto) 0.02 Absolute Neuts (auto) 2.5 Absolute Nucleated RBC 0.000 Nucleated RBC % 0.0 Sodium 134 L Potassium 4.1 Chloride 100 Carbon Dioxide 26 Anion Gap 8 BUN 22 H Creatinine 1.43 H Estim Creat Clear Calc 26 Estimated GFR 35 L Glucose 139 H POC Capillary Glucose 171 H 143 H Calcium 9.0 Magnesium 2.1 Total Bilirubin 0.6 AST 36 ALT 10 Alkaline Phosphatase 118 Total Protein 6.7 Albumin 4.0 06/05/25 06/05/25 09:12 11:45 WBC RBC Hgb Hct MCV MCH MCHC RDW Plt Count MPV Immature Gran % (Auto) Neut % (Auto) Lymph % (Auto) [place] % (Auto) Eos % (Auto) Baso % (Auto) Lymph # (Auto) [place] # (Auto) Eos # (Auto) Baso # (Auto) Abs Immat Gran (auto) Absolute Neuts (auto) Absolute Nucleated RBC Nucleated RBC % Sodium Potassium Chloride Carbon Dioxide Anion Gap BUN Creatinine Estim Creat Clear Calc Estimated GFR Glucose POC Capillary Glucose 125 H 175 H Calcium Magnesium Total Bilirubin AST ALT Alkaline Phosphatase Total Protein Albumin
[2025-06-05 14:00] VITALS: BP 129/56; PULSE 64; RESP 18; TEMP 36.9; O2SAT 100
--- NOTE | 2025-06-05 14:23 | WPDNEUROLOGY ---
Neurology EEG Report General Information Date of Study: 06/04/25 TEST Electroencephalogram DIAGNOSIS altered mental status, dementia CONDITION OF RECORDING bedside recording EEG NUMBER [id number] CLINICAL HISTORY the patient is 79-year-old with history of increasing confusion and agitation at memory problem EEG DESCRIPTION at the beginning of the recording the patient was noted to be drowsy. Diffuse theta activity and intermittent rhythmic delta activity were noted. Sleep spindles were seen. Vertex was also noted. Towards the end the patient was briefly awake was the background activity still consists of poorly organized predominant theta activity at 7 hertz. There is no significant anteroposterior gradient. Hyperventilation or photic stimulation were not performed. IMPRESSION This is an abnormal EEG due to presence of mild diffuse background slowing suggestive of generalized encephalopathy. However no focal or paroxysmal epileptiform abnormalities were seen.
[2025-06-05] MEDS: diazePAM INJ (*CRX) 10 MG/2 ML SYRINGE 5 MG IV PUSH (15:39)
--- NOTE | 2025-06-05 15:44 | P.PNNEUR_ITS ---
Progress Note: A&P Assessment and Plan (1) Dementia of Alzheimer's type with behavioral disturbance: Code(s): G30.9 - Alzheimer's disease, unspecified; F02.818 - Dementia in other diseases classified elsewhere, unspecified severity, with other behavioral disturbance Status: Acute Plan Also suggest to continue the Aricept 10 mg a day and a Ativan 0.5 mg 3 times a day and Namenda 5 mg a day. This should be gradually increased up to 10 mg twice a day. I spoke to the family members and they are in agreement with this plan. I shall be glad to follow her up in my office if they would like. I also noted that in 2021 her vitamin B12 level was 262 and hence I have ordered another level and methylmalonic acid level and she may require additional dose of vitamin B12. Subjective Date/time seen: 06/05/25 15:44 Interval history: Patient is 79-year-old with history of changes in mental status and memory loss, diabetes mellitus Parul, chronic kidney disease. Her was present the time of evaluation. She has been on Aricept 20 mg a day which has not been reduced to [address] angiogram head and neck was performed which shows 65% narrowing of the left internal carotid artery 51% in the right internal carotid artery. MRI of the brain did not show any significant abnormalities. Chronic white matter changes were observed. There is still ongoing concern regarding the memory. Review of Systems Review of Systems: The patient has had periods of agitation according to the nursing staff and required constant supervision. She has been Ativan that seems to have been helpful. All systems reviewed & are unremarkable except as noted in HPI and below Exam Narrative: Fully conscious alert. No aphasia or dysarthria. Cranial nerves on individual testing intact. Motor since had system was also normal. Involuntary movements seen. On a mental status examination patient continues to show evidence of dementia as before. Objective Data Vital Signs Vital Signs: Vital Signs - 24 hr 06/04/25 22:00 06/05/25 06:00 06/05/25 14:00 Temperature 97.9 F 97.9 F 98.4 F Pulse Rate 61 62 64 Respiratory Rate 18 18 18 Blood Pressure 112/86 147/47 H 129/56 L Pulse Oximetry 100 97 100 Intake/Output Intake/Output: Intake & Output 06/02/25 06/03/25 06/04/2513/25 23:59 23:59 23:59 23:59 Intake Total 100 1090 820 720 Balance 100 1090 820 720 Meds/Results Medications: Active Medications Generic Name Dose Route Start Last Admin Trade Name Freq PRN Reason Stop Dose Admin Acetaminophen 650 mg 06/04/25 16:29 06/05/25 06:11 Acetaminophen 325 Mg Tablet PO 650 mg Q6H PRN Administration Mild Pain (1-3) or Fever Aspirin 162 mg 06/03/25 09:00 06/05/25 09:18 Aspirin 81 Mg Enteric Tablet PO 162 mg QAM MANAV Administration Cyanocobalamin 1,000 mcg 06/03/25 09:00 06/05/25 09:18 Cyanocobalamin 1,000 Mcg Tablet PO 1,000 mcg QAM MANAV Administration Dextrose 12.5 gm 06/02/25 22:02 Dextrose 50% 25 Gm/50 Ml Syringe IV PUSH PRN PRN Hypoglycemia Protocol Diazepam 5 mg 06/05/25 15:24 06/05/25 15:39 Diazepam Inj (*Crx) 10 Mg/2 Ml Syringe IV PUSH 5 mg Q8H PRN Administration Agitation Donepezil HCl 10 mg 06/02/25 23:50 06/04/25 20:54 Donepezil Hcl 10 Mg Tablet PO 10 mg QHS MANAV Administration Enoxaparin Sodium 30 mg 06/03/25 09:00 06/05/25 09:19 Enoxaparin 30 Mg/0.3 Ml Syringe SUB-Q 30 mg DAILY MANAV Administration Glucagon 1 mg 06/02/25 22:02 Glucagon For Inj 1 Mg Vial IM PRN PRN Hypoglycemia Protocol Glucose 15 gm 06/02/25 22:02 Glucose Oral Gel 15 Gm Of Glucse In 37.5 Gm Tube PO PRN PRN Hypoglycemia Protocol Dextrose 1,000 mls @ 100 mls/hr 06/02/25 22:02 Dextrose 5% 1,000 Ml IVPB PRN PRN Hypoglycemia Protocol Ceftriaxone Sodium 1 gm/ 100 mls @ 200 mls/hr 06/05/25 16:00 Sodium Chloride IVPB 06/05/25 16:29 ONCE ONE Insulin Aspart 2 - 5 units 06/03/25 08:00 06/05/25 11:51 Insulin Aspart (*Bkc) 100 Units/Ml SUB-Q Not Given TIDWM MANAV Protocol Lorazepam 0.5 mg 06/03/25 14:00 06/05/25 14:13 Lorazepam (*Crx) 0.5 Mg Tablet PO 0.5 mg Q8HR MANAV Administration Metoprolol Succinate 25 mg 06/03/25 09:00 06/05/25 09:18 Metoprolol Succinate Ext Rel 25 Mg Tabcr PO 25 mg DAILY MANAV Administration Perflutren Lipid Microsphere 0 ml 06/02/25 22:03 Perflutren Lipid Microspheres 1.5 Ml Vial Diluted To 10 Ml Total Volume IV PUSH 06/05/25 22:03 ONCE PRN adequate visualization Protocol Rosuvastatin Calcium 40 mg 06/03/25 09:00 06/05/25 09:18 Rosuvastatin 20 Mg Tablet PO 40 mg QAM MANAV Administration Sitagliptin Phosphate 100 mg 06/03/25 09:00 06/05/25 09:17 Sitagliptin Phosphate 100 Mg Tablet PO 100 mg DAILY MANAV Administration Valsartan 320 mg 06/03/25 09:00 06/05/25 09:19 Valsartan 160 Mg Tablet PO 320 mg QAM MANAV Administration Radiology Results: ITS Impressions Head CT 06/02/25 16:22 IMPRESSION: 1. No acute intracranial abnormality. 2: Chronic left lacunar infarction. Chest X-Ray 06/02/25 16:50 IMPRESSION: 1: Small opacities in the mid and lower lungs which represents atelectasis/scarring or infiltrates. Head/Neck CTA 06/02/25 18:08 IMPRESSION: 1: No significant intracranial vascular abnormality. 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 3: Stenosis at the origin of the left internal carotid artery measuring 65%. Brain MRI 06/03/25 13:45 IMPRESSION: 1. No acute intracranial process. 2. Age-related changes in the brain including mild diffuse volume loss and mild scattered white matter T2 hyperintensity consistent with chronic small vessel ischemic disease. Labs Labs: Laboratory Results - last 24 hr 06/04/25 06/04/25 06/05/25 16:52 20:01 06:17 WBC 5.0 RBC 4.42 Hgb 12.5 Hct 38.4 MCV 86.9 MCH 28.3 MCHC 32.6 RDW 13.5 Plt Count 140 L MPV 12.1 H Immature Gran % (Auto) 0.4 Neut % (Auto) 50.2 Lymph % (Auto) 38.3 [place] % (Auto) 10.7 H Eos % (Auto) 0.2 Baso % (Auto) 0.2 Lymph # (Auto) 1.90 [place] # (Auto) 0.5 Eos # (Auto) 0.0 Baso # (Auto) 0.0 Abs Immat Gran (auto) 0.02 Absolute Neuts (auto) 2.5 Absolute Nucleated RBC 0.000 Nucleated RBC % 0.0 Sodium 134 L Potassium 4.1 Chloride 100 Carbon Dioxide 26 Anion Gap 8 BUN 22 H Creatinine 1.43 H Estim Creat Clear Calc 26 Estimated GFR 35 L Glucose 139 H POC Capillary Glucose 171 H 143 H Calcium 9.0 Magnesium 2.1 Total Bilirubin 0.6 AST 36 ALT 10 Alkaline Phosphatase 118 Total Protein 6.7 Albumin 4.0 06/05/25 06/05/25 09:12 11:45 WBC RBC Hgb Hct MCV MCH MCHC RDW Plt Count MPV Immature Gran % (Auto) Neut % (Auto) Lymph % (Auto) [place] % (Auto) Eos % (Auto) Baso % (Auto) Lymph # (Auto) [place] # (Auto) Eos # (Auto) Baso # (Auto) Abs Immat Gran (auto) Absolute Neuts (auto) Absolute Nucleated RBC Nucleated RBC % Sodium Potassium Chloride Carbon Dioxide Anion Gap BUN Creatinine Estim Creat Clear Calc Estimated GFR Glucose POC Capillary Glucose 125 H 175 H Calcium Magnesium Total Bilirubin AST ALT Alkaline Phosphatase Total Protein Albumin
[2025-06-05] MEDS: cefTRIAXone 1 GM in SODIUM CHLORIDE 0.9% IV 100 ML 200 ML IVPB (15:47)
[2025-06-05] MEDS: PROCHLORPERAZINE EDISYLATE 10 MG/2 ML VIAL IV PUSH (16:45)
[2025-06-05] MEDS: OLANZapine 5 MG, WATER, STERILE FOR INJECTION 2.1 ML IM (17:22)
[2025-06-05 19:28] LABS: Vitamin B12 850.0 pg/mL (239-931)
[2025-06-05 21:59] VITALS: BP 138/96; PULSE 70; RESP 18; TEMP 36.5; O2SAT 100
[2025-06-05] MEDS: DONEPEZIL HCL 10 MG TABLET PO (22:06)
[2025-06-06] MEDS: diazePAM INJ (*CRX) 10 MG/2 ML SYRINGE 5 MG IV PUSH (02:15)
[2025-06-06 06:00] VITALS: BP 136/58; PULSE 55; RESP 18; TEMP 36.4; O2SAT 100
[2025-06-06 06:17] LABS: Hematocrit 41.5 % (37.0-47.0); Hemoglobin 13.4 g/dL (12.0-15.0); Immature Granulocyte Percent A 0.7 % (0-0.5); Lymphocytes Absolute Auto 1.62 K/mm3 (0.9-3.2); Mean Corpuscular HGB Conc 32.3 g/dl (32-36); Mean Corpuscular Hemoglobin 28.4 pg (26-34); Mean Corpuscular Volume 87.9 fl (80-100); Nucleated Red Blood Cells Absolute Auto 0.000 K/mm3 (0.0-0.012); Nucleated Red Blood Cells Perc 0.0 % (0.0-0.2); Platelet Count Result 151 k/mm3 (150-375); Red Blood Count 4.72 M/mm3 (4.2-5.4); White Blood Count 4.6 K/mm3 (4.5-10.0)
[2025-06-06 06:40] LABS: Alanine Aminotransferase 10 U/L (6-35); Albumin Level 4.4 g/dL (3.5-5.1); Alkaline Phosphatase 109 U/L (38-126); Anion Gap 8 mmol/L (4-12); Aspartate Amino Transferase 34 U/L (14-36); Bilirubin,Total 0.4 mg/dL (0.2-1.3); Blood Urea Nitrogen 25 mg/dL (7-17); Calcium 9.3 mg/dL (8.4-10.2); Carbon Dioxide 29 mmol/L (22-30); Chloride 99 mmol/L (98-107); Estimated CRCL calculation 28 ml/min; Estimated Glomerular Filt Rate 39; Glucose 147 mg/dL (65-110); Magnesium 2.3 mg/dL (1.6-2.3); Potassium 4.2 mmol/L (3.4-5.0); Sodium 136 mmol/L (137-145); Total Protein 7.2 g/dL (6.3-8.2)
[2025-06-06] MEDS: LORazepam (*CRX) 0.5 MG TABLET PO ×2 (06:47→21:11)
--- NOTE | 2025-06-06 09:13 | P.DS_ITS ---
DS: Admitting Diagnosis Discharge Date 06/06/2025 Admitting Diagnosis UTI with metabolic encephalopathy DS: Discharge Diagnosis Discharge Diagnosis (1) Acute UTI: Code(s): N39.0 - Urinary tract infection, site not specified Status: Acute Assessment and Plan: * 06/01/2025 received TMP-SMZ DS * 06/02/2025 began ceftriaxone * 06/05/2025 as inpatient c/s negative (likely due to outpatient antibiotic use and no outpatient c/s available, stopped ceftriaxone after 5th day of antibiotics * 06/06/2025 continued cefdinir 300 mg daily 06/06-06/07 for 7 days total antibiotics (2) Acute kidney injury: Code(s): N17.9 - Acute kidney failure, unspecified Status: Acute Assessment and Plan: * Creatinine increased from 05/28/2025 1.26 * 06/05/2025 1.43 * Consider due to UTI, decreased PO intake, diuretic use (continued at admission though 06/01/2025 outpatient notes indicated she was not taking indapamide) * 06/05/2025 stopped indapamide, encouraged po intake * 06/06 creatinine improved to 1.33 (3) Acute metabolic encephalopathy: Code(s): G93.41 - Metabolic encephalopathy Status: Acute Assessment and Plan: * Likely due to UTI * Benzo withdrawal unlikely per hx from family (only prn alprazolam use, not daily) * Receiving lorazepam 0.5 mg q 8 hr while inpatient * Unlikely reaction to increased dose of donepezil * Possible drug reaction to TMP-SMZ * Underlying Alzheimer dementia * 06/05/2025 not yet at baseline per family * 06/06/2025 ate well at lunch after sleeping all night due to Zyprexa 5 mg IM (4) Primary hypertension: Code(s): I10 - Essential (primary) hypertension Status: Acute Assessment and Plan: * 06/05/2025 147/47, continue to monitor, 06/06 236/58 (5) Anxiety: Code(s): F41.9 - Anxiety disorder, unspecified Status: Acute Assessment and Plan: * Takes prn alprazolam at home, not even daily per family's hx * Due to agitation, receiving scheduled lorazepam 0.5 mg q 8 hr while hospitalized (6) Type 2 diabetes mellitus: Qualifiers: Diabetes mellitus complication detail: with microalbuminuria Diabetes mellitus complication status: with kidney complications Diabetes mellitus skilled nursing insulin use: without skilled nursing use Qualified Code(s): E11.29 - Type 2 diabetes mellitus with other diabetic kidney complication; R80.9 - Proteinuria, unspecified Code(s): E11.9 - Type 2 diabetes mellitus without complications Status: Acute Assessment and Plan: * 06/05/2025 FBS 139 (7) Anemia: Code(s): D64.9 - Anemia, unspecified Status: Acute Assessment and Plan: * 06/05/2025 Hgb 12.5, 06/06 13.4 (8) Hyperlipidemia: Qualifiers: Hyperlipidemia type: mixed hyperlipidemia Qualified Code(s): E78.2 - Mixed hyperlipidemia Code(s): E78.5 - Hyperlipidemia, unspecified Status: Acute (9) GERD (gastroesophageal reflux disease): Qualifiers: Esophagitis presence: without esophagitis Qualified Code(s): K21.9 - Gastro-esophageal reflux disease without esophagitis Code(s): K21.9 - Gastro-esophageal reflux disease without esophagitis Status: Acute DS: Summary Hospital Course Hospital Course: Admitted with UTI and confusion. Had received trimethoprim sulfa 1 dose prior to admission as outpatient. Received ceftriaxone without complication. Had increased agitation especially in the evenings the required sedation. Was seen by Neurology who felt that she had delirium related to her underlying dementia. Brain imaging with CT was unremarkable except for old lacunar infarct. She was eating well and up and about independently but agitated. She received Zyprexa for severe agitation on the night prior to discharge. She slept several hours and awakened near lunch time and ate a late breakfast. She did not eat lunch. She was awake for her . She conversed with him. She went back to bed for a nap after lunch and awaken later. He wished to take her home. She was discharged in improved condition with hopes that her mental status would return to baseline upon return to home. Time Spent with Patient Time attestation: Total time spent providing and/or coordinating discharge services: Exam Narrative: HEENT: Sclerae nonicteric, pharyngeal mucosa pink and intact NECK: No JVD CHEST: Clear to auscultation. Normal effort HEART: NL S1/S2, regular, no murmur ABDOMEN: BS+, soft, nontender, no mass, no bruits, CVA nontender EXTREMITIES: No cyanosis, edema, or clubbing NEUROLOGIC: CN intact and symmetric to inspection MUSCULOSKELETAL: No deformity to visual inspection PSYCH: Drowsy but arouses, oriented to person only DS: Data Data Completed and Pending Labs on day of discharge: Labs from last 24 hours 06/06/25 06/05/25 06/05/25 05:40 11:45 09:12 WBC 4.6 RBC 4.72 Hgb 13.4 Hct 41.5 MCV 87.9 MCH 28.4 MCHC 32.3 RDW 13.5 Plt Count 151 MPV 12.2 H Immature Gran % (Auto) 0.7 H Neut % (Auto) 54.2 Lymph % (Auto) 35.3 [place] % (Auto) 9.4 H Eos % (Auto) 0.2 Baso % (Auto) 0.2 Lymph # (Auto) 1.62 [place] # (Auto) 0.4 Eos # (Auto) 0.0 Baso # (Auto) 0.0 Abs Immat Gran (auto) 0.03 Absolute Neuts (auto) 2.5 Absolute Nucleated RBC 0.000 Nucleated RBC % 0.0 Sodium 136 L Potassium 4.2 Chloride 99 Carbon Dioxide 29 Anion Gap 8 BUN 25 H Creatinine 1.33 H Estim Creat Clear Calc 28 Estimated GFR 39 L Glucose 147 H POC Capillary Glucose 175 H 125 H Calcium 9.3 Magnesium 2.3 Total Bilirubin 0.4 AST 34 ALT 10 Alkaline Phosphatase 109 Total Protein 7.2 Albumin 4.4 Vitamin B12 Methylmalonic Acid Folate 06/05/25 06:11 WBC RBC Hgb Hct MCV MCH MCHC RDW Plt Count MPV Immature Gran % (Auto) Neut % (Auto) Lymph % (Auto) [place] % (Auto) Eos % (Auto) Baso % (Auto) Lymph # (Auto) [place] # (Auto) Eos # (Auto) Baso # (Auto) Abs Immat Gran (auto) Absolute Neuts (auto) Absolute Nucleated RBC Nucleated RBC % Sodium Potassium Chloride Carbon Dioxide Anion Gap BUN Creatinine Estim Creat Clear Calc Estimated GFR Glucose POC Capillary Glucose Calcium Magnesium Total Bilirubin AST ALT Alkaline Phosphatase Total Protein Albumin Vitamin B12 850.0 Methylmalonic Acid Pending Folate 7.2 Discharge Plan Discharge Consulting providers: Vinicio Parikh Discharging Clinician: Graham Daigle Patient Disposition: Home Activity: no straining and no driving Diet: as tolerated Patient Instructions: Antibiotic Form Patient Language: [place] Stand Alone Forms: General Discharge Information Follow-up/Referrals: Graham Daigle MD [Physician, Hospitalist] Referral Note: May make appt at [employer] office Discharge Medications: New cefdinir 300 mg Capsule 300 mg PO DAILY Qty: 1 0RF aspirin 81 mg tablet,delayed release (DR/EC) 81 mg PO DAILY Qty: 30 0RF Continued donepezil 10 mg tablet 10 mg PO QHS mecobalamin (vitamin B12) 1,000 mcg tablet,disintegrating 1,000 mcg sublingual DAILY Qty: 90 2RF Rx Instructions: place tablet under tongue and allow to dissolve for at least30 secs before swallowing atorvastatin 40 mg tablet 40 mg PO DAILY Qty: 90 1RF alprazolam 0.25 mg tablet 0.25 mg PO TID PRN (Reason: anxiety) Qty: 90 0RF valsartan 320 mg tablet 320 mg PO DAILY Qty: 90 1RF metoprolol succinate 25 mg tablet extended release 24 hr 25 mg PO DAILY Qty: 90 3RF Januvia 100 mg tablet 100 mg PO DAILY Qty: 90 1RF Discontinued sulfamethoxazole-trimethoprim 400-80 mg tablet 1 tablet PO Q12H 7 Days Qty: 14 0RF indapamide 2.5 mg tablet 2.5 mg PO DAILY@0800 donepezil 5 mg tablet 5 mg PO .nightly Date of admission: 06/03/25 13:55 Primary Care Provider: Juliet Morris Admitting Provider: Gabby Garcia Attending physician on admission: Gabby Garcia Condition: Improved
[2025-06-06] MEDS: ROSUVASTATIN 20 MG TABLET 40 MG PO (10:40)
[2025-06-06 10:44] VITALS: PULSE 72
[2025-06-06] MEDS: CYANOCOBALAMIN 1,000 MCG TABLET 1000 MCG PO (10:44)
[2025-06-06] MEDS: MEMANTINE 5 MG TABLET PO (10:44)
[2025-06-06] MEDS: VALSARTAN 160 MG TABLET 320 MG PO (10:44)
[2025-06-06] MEDS: METOPROLOL SUCCINATE EXT REL 25 MG TABCR PO (10:44)
[2025-06-06] MEDS: ASPIRIN 81 MG ENTERIC TABLET 162 MG PO (10:45)
[2025-06-06] MEDS: ENOXAPARIN 30 MG/0.3 ML SYRINGE SUB-Q (10:45)
[2025-06-06 14:00] VITALS: BP 145/43; PULSE 66; RESP 16; TEMP 36.7; O2SAT 100
--- NOTE | 2025-06-06 14:19 | PC.NURSE ---
Patient very drowsy. Patient unable to stay awake for meaningful periods of time currently. Per Dr. Daigle, Patient can discharge after dinner if patient's family member has help getting patient inside of house safely. Patient's Arnold states that his son will be there to help around 1800.
--- NOTE | 2025-06-06 17:38 | PC.NURSE ---
Patient too drowsy to be able to discharge home today, as patient is unable to remain awake for more than a few seconds at a time. Dr. Daigle aware and okay with canceling discharge for today.
--- NOTE | 2025-06-06 17:59 | PC.NURSE ---
Addendum entered by Gracia Arevalo RN 06/06/25 18:55: Passed on to paper grader RN that family would like to inquire about discharge medications and possible home health with hospitalist/care support representative tomorrow before discharge. Original Note: Patient family stating that discharging doctor likely forgot to order memantine which was recommended by neurology, Dr. Finney. Discharge is being cancelled for tonight.
[2025-06-06 20:00] VITALS: PULSE 66; RESP 16; O2SAT 100
[2025-06-06] MEDS: DONEPEZIL HCL 10 MG TABLET PO (21:11)
[2025-06-06 22:00] VITALS: BP 121/105; PULSE 88; RESP 18; O2SAT 100
[2025-06-07] MEDS: LORazepam (*CRX) 0.5 MG TABLET PO (05:46)
[2025-06-07 05:49] LABS: Hematocrit 38.9 % (37.0-47.0); Hemoglobin 12.3 g/dL (12.0-15.0); Immature Granulocyte Percent A 0.9 % (0-0.5); Lymphocytes Absolute Auto 1.56 K/mm3 (0.9-3.2); Mean Corpuscular HGB Conc 31.6 g/dl (32-36); Mean Corpuscular Hemoglobin 27.8 pg (26-34); Mean Corpuscular Volume 88.0 fl (80-100); Nucleated Red Blood Cells Absolute Auto 0.000 K/mm3 (0.0-0.012); Nucleated Red Blood Cells Perc 0.0 % (0.0-0.2); Platelet Count Result 160 k/mm3 (150-375); Red Blood Count 4.42 M/mm3 (4.2-5.4); White Blood Count 7.6 K/mm3 (4.5-10.0)
[2025-06-07 06:00] VITALS: BP 165/41; PULSE 62; RESP 18; TEMP 36.6; O2SAT 100
[2025-06-07 06:09] LABS: Alanine Aminotransferase 9 U/L (6-35); Albumin Level 4.1 g/dL (3.5-5.1); Alkaline Phosphatase 105 U/L (38-126); Anion Gap 8 mmol/L (4-12); Aspartate Amino Transferase 31 U/L (14-36); Bilirubin,Total 0.6 mg/dL (0.2-1.3); Blood Urea Nitrogen 33 mg/dL (7-17); Calcium 9.3 mg/dL (8.4-10.2); Carbon Dioxide 26 mmol/L (22-30); Chloride 98 mmol/L (98-107); Estimated CRCL calculation 25 ml/min; Estimated Glomerular Filt Rate 34; Glucose 156 mg/dL (65-110); Magnesium 2.2 mg/dL (1.6-2.3); Potassium 3.9 mmol/L (3.4-5.0); Sodium 132 mmol/L (137-145); Total Protein 6.9 g/dL (6.3-8.2)
[2025-06-07 08:00] VITALS: PULSE 62; RESP 18; O2SAT 98
[2025-06-07 09:04] VITALS: O2SAT 98
[2025-06-07] MEDS: ASPIRIN 81 MG ENTERIC TABLET 162 MG PO (09:27)
[2025-06-07] MEDS: MEMANTINE 5 MG TABLET PO (09:28)
[2025-06-07] MEDS: ROSUVASTATIN 20 MG TABLET 40 MG PO (09:28)
[2025-06-07] MEDS: ENOXAPARIN 30 MG/0.3 ML SYRINGE SUB-Q (09:28)
[2025-06-07] MEDS: METOPROLOL SUCCINATE EXT REL 25 MG TABCR PO (09:28)
[2025-06-07] MEDS: CYANOCOBALAMIN 1,000 MCG TABLET 1000 MCG PO (09:28)
[2025-06-07] MEDS: VALSARTAN 160 MG TABLET 320 MG PO (09:28)
[2025-06-07] MEDS: CEFDINIR 300 MG CAPSULE PO (09:30)
--- NOTE | 2025-06-07 11:59 | P.DS_ITS ---
DS: Admitting Diagnosis Discharge Date 06/07/25 Admitting Diagnosis UTI Metabolic encephalopathy Dementia Diabetes mellitus DS: Discharge Diagnosis Discharge Diagnosis (1) Accelerated essential hypertension: Code(s): I10 - Essential (primary) hypertension Status: Acute (2) Type 2 diabetes mellitus: Qualifiers: Diabetes mellitus snf insulin use: without snf use Diabetes mellitus complication status: with kidney complications Diabetes mellitus complication detail: with microalbuminuria Qualified Code(s): E11.29 - Type 2 diabetes mellitus with other diabetic kidney complication; R80.9 - Proteinuria, unspecified Code(s): E11.9 - Type 2 diabetes mellitus without complications Status: Acute (3) Chronic renal insufficiency, stage III (moderate): Code(s): N18.30 - Chronic kidney disease, stage 3 unspecified Status: Acute (4) Acute metabolic encephalopathy: Code(s): G93.41 - Metabolic encephalopathy Status: Acute (5) Dementia of Alzheimer's type with behavioral disturbance: Code(s): G30.9 - Alzheimer's disease, unspecified; F02.818 - Dementia in other diseases classified elsewhere, unspecified severity, with other behavioral disturbance Status: Acute DS: Summary Hospital Course Reason for hospitalization: Metabolic encephalopathy Hospital Course: 79-year-old female with history of CKD, anxiety, GERD, diabetes, hypertension admitted for altered mental status. Per patient's , patient was diagnosed with a UTI at her PCPs office and she has taken 2 doses of Keflex. Later in a day, she began to slur her words and have significant memory loss prompting to bring her in for further evaluation. Neurology was consulted. Treated with 5 days of IV antibiotics while here in the hospital. Was started on Aricept and Namenda as per Neurology, recommendation for outpatient follow-up with Neurology. Patient was discharged home with home health in stable condition. Status at Discharge Overall status at discharge: patient is progressing back to baseline Time Spent with Patient Time attestation: Total time spent providing and/or coordinating discharge services: 32 minutes Exam Narrative: HEENT: Sclerae nonicteric, pharyngeal mucosa pink and intact NECK: No JVD CHEST: Clear to auscultation. Normal effort HEART: NL S1/S2, regular, no murmur ABDOMEN: BS+, soft, nontender, no mass, no bruits, CVA nontender EXTREMITIES: No cyanosis, edema, or clubbing NEUROLOGIC: CN intact and symmetric to inspection MUSCULOSKELETAL: No deformity to visual inspection PSYCH: Drowsy but arouses, oriented to person only DS: Data Data Completed and Pending Labs on day of discharge: Labs from last 24 hours 06/07/25 06/07/25 06/07/25 11:30 08:32 05:29 WBC 7.6 RBC 4.42 Hgb 12.3 Hct 38.9 MCV 88.0 MCH 27.8 MCHC 31.6 L RDW 13.6 Plt Count 160 MPV 12.3 H Immature Gran % (Auto) 0.9 H Neut % (Auto) 69.8 Lymph % (Auto) 20.5 [place] % (Auto) 8.7 H Eos % (Auto) 0.0 Baso % (Auto) 0.1 L Lymph # (Auto) 1.56 [place] # (Auto) 0.7 H Eos # (Auto) 0.0 Baso # (Auto) 0.0 Abs Immat Gran (auto) 0.07 H Absolute Neuts (auto) 5.3 Absolute Nucleated RBC 0.000 Nucleated RBC % 0.0 Sodium 132 L Potassium 3.9 Chloride 98 Carbon Dioxide 26 Anion Gap 8 BUN 33 H Creatinine 1.50 H Estim Creat Clear Calc 25 Estimated GFR 34 L Glucose 156 H POC Capillary Glucose 197 H 163 H Calcium 9.3 Magnesium 2.2 Total Bilirubin 0.6 AST 31 ALT 9 Alkaline Phosphatase 105 Total Protein 6.9 Albumin 4.1 06/06/25 06/06/25 06/06/25 21:18 17:28 12:30 WBC RBC Hgb Hct MCV MCH MCHC RDW Plt Count MPV Immature Gran % (Auto) Neut % (Auto) Lymph % (Auto) [place] % (Auto) Eos % (Auto) Baso % (Auto) Lymph # (Auto) [place] # (Auto) Eos # (Auto) Baso # (Auto) Abs Immat Gran (auto) Absolute Neuts (auto) Absolute Nucleated RBC Nucleated RBC % Sodium Potassium Chloride Carbon Dioxide Anion Gap BUN Creatinine Estim Creat Clear Calc Estimated GFR Glucose POC Capillary Glucose 322 H 152 H 185 H Calcium Magnesium Total Bilirubin AST ALT Alkaline Phosphatase Total Protein Albumin Discharge Plan Discharge Attending physician on discharge: Bre Barnett Consulting providers: Vinicio Parikh Discharging Clinician: Graham Daigle Anticipated Discharge Date/Time: 06/07/25 11:43 Patient Disposition: Home with Home Health Service Activity: no straining and no driving Diet: as tolerated Discharge Instructions: Care Coordination: Patient to have [facility] for PT/OT eval and treat, and assisted. Their phone number is [phone], if you have any questions; they will contact you to schedule their visits. RN Please fax discharge instructions to [phone]. Patient Instructions: Antibiotic Form Patient Language: [place] Stand Alone Forms: General Discharge Information Follow-up/Referrals: Graham Daigle MD [Physician, Hospitalist] Referral Note: May make appt at [place] office Raegan Finney MD [Physician, Neurology] - 2 Weeks Discharge Medications: New cefdinir 300 mg Capsule 300 mg PO DAILY Qty: 1 0RF aspirin 81 mg tablet,delayed release (DR/EC) 81 mg PO DAILY Qty: 30 0RF donepezil [Aricept] 10 mg tablet 10 mg PO HS Qty: 30 1RF memantine [Namenda Titration [place]man] 5-10 mg tablets,dose pack See Rx Instructions .ROUTE .COMPLEX Qty: 49 0RF Rx Instructions: orally per package directions Continued donepezil 10 mg tablet 10 mg PO QHS mecobalamin (vitamin B12) 1,000 mcg tablet,disintegrating 1,000 mcg sublingual DAILY Qty: 90 2RF Rx Instructions: place tablet under tongue and allow to dissolve for at least30 secs before swallowing atorvastatin 40 mg tablet 40 mg PO DAILY Qty: 90 1RF alprazolam 0.25 mg tablet 0.25 mg PO TID PRN (Reason: anxiety) Qty: 90 0RF valsartan 320 mg tablet 320 mg PO DAILY Qty: 90 1RF metoprolol succinate 25 mg tablet extended release 24 hr 25 mg PO DAILY Qty: 90 3RF Januvia 100 mg tablet 100 mg PO DAILY Qty: 90 1RF Discontinued sulfamethoxazole-trimethoprim 400-80 mg tablet 1 tablet PO Q12H 7 Days Qty: 14 0RF indapamide 2.5 mg tablet 2.5 mg PO DAILY@0800 donepezil 5 mg tablet 5 mg PO .nightly Date of admission: 06/03/25 13:55 Primary Care Provider: Juliet Morris Admitting Provider: Gabby Garcia Attending physician on admission: Gabby Garcia Condition: Improved
== END 2025-06-07 12:56 | disposition home health service (06) | DRG 689 ==
LOC: ANHED 17:05 → ANH3MEDSUR 19:18 → ANH3MED 20:17
PROVIDERS: Nurse Practitioner; Psychiatry & Neurology Neurology; Admitting Provider General Practice; Emergency Provider Student in an Organized Health Care Education/Training Program; PCP Family Medicine; Visit Provider Internal Medicine
DX: N39.0 Urinary tract infection, site not specified (principal); G93.41 Metabolic encephalopathy; N17.9 Acute kidney failure, unspecified; I12.9 Hypertensive chronic kidney disease with stage 1 through stage 4 chronic kidney disease, or unspecified chronic kidney disease; N18.30 Chronic kidney disease, stage 3 unspecified; E11.22 Type 2 diabetes mellitus with diabetic chronic kidney disease; E78.5 Hyperlipidemia, unspecified; K21.9 Gastro-esophageal reflux disease without esophagitis; D64.9 Anemia, unspecified; G30.9 Alzheimer's disease, unspecified; F02.80 Dementia in other diseases classified elsewhere, unspecified severity, without behavioral disturbance, psychotic disturbance, mood disturbance, and anxiety; F41.9 Anxiety disorder, unspecified
CPT/HCPCS: 36415; 70450; 70496; 70498; 70551; 71045; 80053; 80061; 82077; 82607; 82746; 82948; 83735; 83921; 84484; 85025; 85610; 85730; 93005; 93306; 95816; 96365; 96375; 99285; A9270; G0378; J0696; J0780; J1200; J1630; J1650; J1815; J3360; Q9967

== ENCOUNTER 2025-06-10 13:44 | Inpatient (IN) | payer MEDICARE, SELFPAY ==
--- NOTE | ~2025-06-10 | CT_ITS ---
EXAMINATION: CT ankle LT wo con DATE: 06/11/2025 18:59 INDICATION: Left ankle redness and swelling. TECHNIQUE: Computed tomography (CT) of the left ankle was performed without intravenous contrast. Automated exposure control and iterative reconstruction technique were employed. The dose-length product was 363.99 mGy-cm. COMPARISON: Left ankle radiographs 06/10/2025 FINDINGS: Bone alignment is normal. No fracture. There is a healing oblique fracture of diaphysis of fifth metatarsal with callus formation. There is mild osteoarthritis of many of the joints of the foot. There is a nondisplaced avulsion fracture of anterior distal left fibula. IMPRESSION: 1. Nondisplaced avulsion fracture of anterior distal left fibula. I discussed this result with Dr. Tom. Reviewed, dictated and finalized at location E. IMPRESSION: 1. Nondisplaced avulsion fracture of anterior distal left fibula. I discussed t his result with Dr. Tom.
--- NOTE | ~2025-06-10 | US_ITS ---
LEFT LOWER EXTREMITY VENOUS DUPLEX Clinical History: Asymmetric swelling COMPARISON: None TECHNIQUE: Grayscale, color, duplex/spectral Doppler sonography left leg FINDINGS: Left leg common femoral, femoral, popliteal, and calf veins compressible and color Doppler patent. Normal augmentation with distal compression. No internal echoes. 5 cm Keith's cyst. IMPRESSION: 1. No left leg DVT. 2. 5 cm Keith's cyst. Reviewed, dictated and finalized at location R.
--- NOTE | ~2025-06-10 | XR_ITS ---
EXAMINATION: XR ankle LT min 3V DATE: 06/10/2025 16:31 INDICATION: Left ankle pain and swelling TECHNIQUE: Anteroposterior, oblique, mortise, and lateral views of the left ankle were obtained. COMPARISON: None. FINDINGS: Diffuse osteopenia. Bone alignment is normal. No fracture. Small Achilles and plantar calcaneal spurs. Mild polyarticular osteoarthritis at the tarsal metatarsal joints. A finger appears to project over the fifth metatarsal on the lateral projection. Diffuse soft tissue swelling about the distal lower leg and ankle and extending over the dorsum of the mid and hindfoot. No evident ankle joint effusion. IMPRESSION: 1. No acute osseous abnormality. Reviewed, dictated and finalized at location A.
--- NOTE | ~2025-06-10 | CT_ITS ---
CT HEAD NON-CONTRAST Clinical History: ams Comparison: CT brain 06/02/2025 Technique: Unenhanced axial images skull base to vertex Coronal, sagittal reformats CT images acquired with automatic exposure control for dose reduction DLP: 1362 mGy-cm Findings: Mild global atrophy. White matter changes typically chronic microvascular ischemic disease. Left basal ganglia lacune. Sulci, ventricles: Unremarkable. No intracerebral hemorrhage. No evidence acute territorial infarct. No mass effect, midline shift. Bony calvarium intact. Visualized paranasal sinuses: Clear. Mastoid air cells: Clear. IMPRESSION: 1. No acute intracranial findings. Reviewed, dictated and finalized at location R.
[2025-06-10 13:46] VITALS: BP 156/61; PULSE 87; RESP 20; TEMP 36.9; O2SAT 100
[2025-06-10 15:17] LABS: Hematocrit 39.0 % (37.0-47.0); Hemoglobin 12.6 g/dL (12.0-15.0); Immature Granulocyte Percent A 1.2 % (0-0.5); Lymphocytes Absolute Auto 1.13 K/mm3 (0.9-3.2); Mean Corpuscular HGB Conc 32.3 g/dl (32-36); Mean Corpuscular Hemoglobin 28.0 pg (26-34); Mean Corpuscular Volume 86.7 fl (80-100); Nucleated Red Blood Cells Absolute Auto 0.000 K/mm3 (0.0-0.012); Nucleated Red Blood Cells Perc 0.0 % (0.0-0.2); Platelet Count Result 148 k/mm3 (150-375); Red Blood Count 4.50 M/mm3 (4.2-5.4); White Blood Count 8.3 K/mm3 (4.5-10.0)
[2025-06-10 15:29] LABS: Potassium 4.0 mmol/L (3.4-5.0)
[2025-06-10 15:30] LABS: Alanine Aminotransferase 13 U/L (6-35); Albumin Level 4.5 g/dL (3.5-5.1); Alkaline Phosphatase 132 U/L (38-126); Anion Gap 9 mmol/L (4-12); Aspartate Amino Transferase 29 U/L (14-36); Bilirubin,Total 0.9 mg/dL (0.2-1.3); Blood Urea Nitrogen 53 mg/dL (7-17); Calcium 9.8 mg/dL (8.4-10.2); Carbon Dioxide 30 mmol/L (22-30); Chloride 97 mmol/L (98-107); Estimated CRCL calculation 21 ml/min; Estimated Glomerular Filt Rate 28; Glucose 321 mg/dL (65-110); Sodium 136 mmol/L (137-145); Total Protein 8.0 g/dL (6.3-8.2)
[2025-06-10 15:39] LABS: NT Pro B Type Natriuretic Pept 471 pg/mL (19.9-100)
[2025-06-10 16:29] LABS: Uric Acid 7.1 mg/dL (2.5-7.5)
[2025-06-10] MEDS: LORazepam (*CRX) 1 MG TABLET PO (17:04)
[2025-06-10 18:30] LABS: Add Urine Microscopic? YES; Appearance Urine Cloudy (Clear); Budding Yeast Urine Present /hpf; Cholesterol Crystals Ur Present /hpf; Glucose Urine UA 3+ mg/dL (Negative); Leukocyte Esterase Ur Trace LEU/UL (Negative); Need Manual Microscopic Reviewed; Nitrate Urine Negative (Negative); Specific Grav Ur 1.031 (1.001-1.035)
--- NOTE | 2025-06-10 19:08 | ED.GENADULT ---
HPI - General Adult General Chief complaint: Weakness Stated complaint: unable to walk Time Seen by Provider: 06/10/25 13:53 Source: patient Mode of arrival: EMS Limitations: dementia Related Data Home Medications ?Medication ?Instructions ?Recorded ?Confirmed ?Last Taken ?Type donepezil 10 mg tablet 10 mg PO QHS 06/02/25 06/02/25 Unknown History Allergies Allergy/AdvReac Type Severity Reaction Status Date / Time codeine Allergy Unknown Unknown Verified 06/03/25 10:02 Penicillins Allergy Unknown Unknown Verified 06/01/25 09:02 Review of Systems Review of Systems: ROS unobtainable: Yes unobtainable due to medical condition PMFSH Past Medical History Medical History Dementia of Alzheimer's type with behavioral disturbance Chronic renal insufficiency, stage III (moderate) Anemia Palpitations Hyperlipidemia GERD (gastroesophageal reflux disease) Accelerated essential hypertension Type 2 diabetes mellitus Surgical History Surgical History History of ear surgery (~2020) left tube removal - hole inner ear History of ankle surgery History of arthroplasty of both wrists Hx laparoscopic cholecystectomy Family History Family History Grandparent Diabetes mellitus Mother Diabetes mellitus Social History Social History Smoking status: Never smoker Second hand tobacco smoke exposure: No Alcohol intake: never Substance use: never Substance use type: does not use Lack of Transportation: No Lack of Food: Never True Current Housing: I Have Housing Concerned About Future Housing: No Difficulty Paying Gas/Electric Bills: No Difficulty Paying for Meds: No Currently Unemployed: No Education: High School Diploma/GED Difficulty w/ Childcare or Family Care: No Living arrangements: with family Occupation/Education: retired Gender identity (if verbalized by the patient): Female Sexual Orientation (if Verbalized by the Patient): Straight or Heterosexual Spiritual care concerns: No Agree to blood products: Yes Exam Narrative: GENERAL: Well-appearing, well-nourished, and in no acute distress. HEAD: Normocephalic, atraumatic. EYES: PERRLA and EOMI. ENT: Nares clear, no rhinorrhea or epistaxis. Mucous membranes moist. NECK: Supple. CHEST: Clear to auscultation. No respiratory distress. HEART: Regular rate and rhythm. No murmur heard. Normal peripheral pulses. ABDOMEN: Soft, nontender, nondistended, normal active bowel sounds. EXTREMITIES: Normal range of motion. No edema. SKIN: Warm, dry, no rash. NEURO: No focal deficits. Alert and oriented x1 PSYCH: Normal mood and affect. Course Course Emergency Course: informed pt 's at the bed side about her lab and CT findings , he is unable to manage at home , Case management was here to talk to the family . Vital Signs Vital signs: Vital Signs Temperature 36.9 C 06/10/25 13:46 Pulse Rate 87 06/10/25 13:46 Respiratory Rate 20 06/10/25 13:46 Blood Pressure 156/61 H 06/10/25 13:46 Pulse Oximetry 100 06/10/25 13:46 Oxygen Delivery Room Air 06/10/25 13:46 Temperature 36.9 C 06/10/25 13:46 Pulse Rate 87 06/10/25 13:46 Respiratory Rate 20 06/10/25 13:46 Blood Pressure 156/61 H 06/10/25 13:46 Pulse Oximetry 100 06/10/25 13:46 Oxygen Delivery Room Air 06/10/25 13:46 Medical Decision Making Vital Signs Vital Signs: Vital Signs Temperature 36.9 C 06/10/25 13:46 Pulse Rate 87 06/10/25 13:46 Respiratory Rate 20 06/10/25 13:46 Blood Pressure 156/61 H 06/10/25 13:46 Pulse Oximetry 06/10/25 13:46 Oxygen Delivery Room Air 06/10/25 13:46 Temperature 36.9 C 06/10/25 13:46 Pulse Rate 87 06/10/25 13:46 Respiratory Rate 20 06/10/25 13:46 Blood Pressure 156/61 H 06/10/25 13:46 Pulse Oximetry 06/10/25 13:46 Oxygen Delivery Room Air 06/10/25 13:46 Lab Data 06/10/25 15:09 06/10/25 15:09 Labs: Lab Results 06/10/25 06/10/25 Range/Units 15:09 18:01 WBC 8.3 (4.5-10.0) K/mm3 RBC 4.50 (4.2-5.4) M/mm3 Hgb 12.6 (12.0-15.0) g/dL Hct 39.0 (37.0-47.0) % MCV 86.7 (80-100) fl MCH 28.0 (26-34) pg MCHC 32.3 (32-36) g/dl RDW 13.8 (11.5-14.5) % Plt Count 148 L (150-375) k/mm3 MPV 12.4 H (7.4-10.4) fl Immature Gran % (Auto) 1.2 H (0-0.5) % Neut % (Auto) 68.2 (45.5-73.1) % Lymph % (Auto) 13.5 L (18.3-44.2) % [place] % (Auto) 17.0 H (2.6-8.5) % Eos % (Auto) 0.0 (0-4.4) % Baso % (Auto) 0.1 L (0.2-1.2) % Lymph # (Auto) 1.13 (0.9-3.2) K/mm3 [place] # (Auto) 1.4 H (0.1-0.6) K/mm3 Eos # (Auto) 0.0 (0-0.3) K/mm3 Baso # (Auto) 0.0 (0.0-0.1) K/mm3 Abs Immat Gran (auto) 0.10 H (0.00-0.031) K/mm3 Absolute Neuts (auto) 5.7 (1.3-6.7) K/mm3 Absolute Nucleated RBC 0.000 (0.0-0.012) K/mm3 Nucleated RBC % 0.0 (0.0-0.2) % Sodium 136 L (137-145) mmol/L Potassium 4.0 (3.4-5.0) mmol/L Chloride 97 L (98-107) mmol/L Carbon Dioxide 30 (22-30) mmol/L Anion Gap 9 (4-12) mmol/L BUN 53 H D (7-17) mg/dL Creatinine 1.77 H (0.7-1.0) mg/dL Estim Creat Clear Calc 21 ml/min Estimated GFR 28 L (59 - ) Glucose 321 H (65-110) mg/dL Uric Acid 7.1 (2.5-7.5) mg/dL Calcium 9.8 (8.4-10.2) mg/dL Total Bilirubin 0.9 (0.2-1.3) mg/dL AST 29 (14-36) U/L ALT 13 (6-35) U/L Alkaline Phosphatase 132 H (38-126) U/L NT-Pro-B Natriuret Pep 471 H (19.9-100) pg/mL Total Protein 8.0 (6.3-8.2) g/dL Albumin 4.5 (3.5-5.1) g/dL Urine Color Yellow (Yellow) Urine Appearance Cloudy H (Clear) Urine pH 5.0 (5.0-9.0) Ur Specific [place] 1.031 (1.001-1.035) Urine Protein 1+ H (Negative) mg/dL Urine Glucose (UA) 3+ H (Negative) mg/dL Urine Ketones Trace H (Negative) mg/dL Ur Blood (Man) 1+ H (Negative) Urine Nitrate Negative (Negative) Urine Bilirubin Negative (Negative) Urine Urobilinogen 0.2 (<2.0) mg/dL Add Ur Microanalysis Reviewed Leukocyte Esterase Rfl Trace H (Negative) ANDERSON/UL Urine RBC 6-10 H (0-2) /hpf Urine WBC 11-20 H (0-3) /hpf Ur Squamous Epith Cells Few (Few) /hpf Cholesterol Crystals Present H (None) /hpf Urine Bacteria None seen /hpf Urine Casts 3-5 Urine Yeast (Budding) Present H (None) /hpf Imaging Data Radiologist's impression: ITS Impressions Ankle X-Ray 06/10/25 16:43 IMPRESSION: 1. No acute osseous abnormality. Head CT 06/10/25 18:07 IMPRESSION: 1. No acute intracranial findings. Discharge Plan Discharge Clinical Impression: AMS (altered mental status) Qualifiers: Altered mental status type: unspecified Qualified Code(s): R41.82 - Altered mental status, unspecified Dementia Qualifiers: Dementia type: Alzheimer's Alzheimer's disease onset: unspecified onset Dementia severity: severe Dementia behavioral or psychological symptom: unspecified whether behavioral, psychotic, or mood disturbance or anxiety Qualified Code(s): G30.9 - Alzheimer's disease, unspecified; F02.C0 - Dementia in other diseases classified elsewhere, severe, without behavioral disturbance, psychotic disturbance, mood disturbance, and anxiety Patient Disposition: Still a Patient Condition: Stable Patient Language: Yakut Prescriptions: No Action donepezil 10 mg tablet 10 mg PO QHS cefdinir 300 mg Capsule 300 mg PO DAILY Qty: 1 0RF aspirin 81 mg tablet,delayed release (DR/EC) 81 mg PO DAILY Qty: 30 0RF donepezil [Aricept] 10 mg tablet 10 mg PO HS Qty: 30 1RF memantine [Namenda Titration Osman] 5-10 mg tablets,dose pack See Rx Instructions .ROUTE .COMPLEX Qty: 49 0RF Rx Instructions: orally per package directions mecobalamin (vitamin B12) 1,000 mcg tablet,disintegrating 1,000 mcg sublingual DAILY Qty: 90 2RF Rx Instructions: place tablet under tongue and allow to dissolve for at least30 secs before swallowing alprazolam 0.25 mg tablet 0.25 mg PO TID PRN (Reason: anxiety) Qty: 90 0RF valsartan 320 mg tablet 320 mg PO DAILY Qty: 90 1RF metoprolol succinate 25 mg tablet extended release 24 hr 25 mg PO DAILY Qty: 90 3RF Januvia 100 mg tablet 100 mg PO DAILY Qty: 90 1RF doxepin 10 mg capsule 10 mg PO QHS Qty: 30 0RF atorvastatin 40 mg tablet 40 mg PO DAILY Qty: 90 1RF Follow-up/Referrals: Juliet Morris MD [Primary Care Provider, Family Practice] Time of Disposition: 19:14
--- NOTE | 2025-06-10 19:30 | P.HP_ITS ---
H&P: HPI History of Present Illness Date/Time: 06/10/25 19:30 Chief Complaint: Inability to Ambulate, L Ankle Swelling Narrative: 79 y/o F with PMH of dementia, CKD, anxiety, GERD, diabetes, and hypertension presents here with inability to ambulate and left ankle swelling. The patient presents here from home via EMS for further evaluation of weakness, inability to walk, and swelling to her left ankle. At baseline the patient is A&Ox1-2 due to history of dementia, arrived A&O x1. History obtained through chart review, patient's , and ED provider report. He reports no recent falls or trauma that he is aware of. He reports the patient needs assistance with standing if she falls so he would know if she had fallen in the last few days. He reports up until Saturday she was ambulating as normal and then Saturday she stopped walking. Swelling then noted today to her left ankle. No previous history of blood clots. Initial VS at presentation: 98.5? F, HR 87, R 20, 156/61, and 100% on RA. ED workup showed: No leukocytosis, no anemia, sodium 136, creatinine 1.77 and GFR 28, glucose 321, BNP 471 (WNL for age), and UA equivocal for UTI. Head CT showed no acute intracranial findings. Ankle XR showed no acute osseous abnormality. Review of Systems Review of Systems: ROS unobtainable: Yes unobtainable due to mental status (Severely limited due to dementia) PMFSH Past Medical History Medical History Dementia of Alzheimer's type with behavioral disturbance Chronic renal insufficiency, stage III (moderate) Anemia Palpitations Hyperlipidemia GERD (gastroesophageal reflux disease) Accelerated essential hypertension Type 2 diabetes mellitus Surgical History Surgical History History of ear surgery (~2020) left tube removal - hole inner ear History of ankle surgery History of arthroplasty of both wrists Hx laparoscopic cholecystectomy Family History Family History Grandparent Diabetes mellitus Mother Diabetes mellitus Social History Social History Smoking status: Never smoker Second hand tobacco smoke exposure: No Alcohol intake: never Substance use: never Substance use type: does not use Lack of Transportation: No Lack of Food: Never True Current Housing: I Have Housing Concerned About Future Housing: No Difficulty Paying Gas/Electric Bills: No Difficulty Paying for Meds: No Currently Unemployed: No Education: High School Diploma/GED Difficulty w/ Childcare or Family Care: No Living arrangements: with family Occupation/Education: retired Gender identity (if verbalized by the patient): Female Sexual Orientation (if Verbalized by the Patient): Straight or Heterosexual Spiritual care concerns: No Agree to blood products: Yes Meds Home Medications and Allergies Home Medications ?Medication ?Instructions ?Recorded ?Confirmed ?Type mecobalamin (vitamin B12) 1,000 1,000 mcg sublingual D AILY #90 tabs 02/01/22 06/02/25 Rx mcg disintegrating tablet,sublingual alprazolam 0.25 mg tablet 0.25 mg PO TID PRN anxiety # 90 tabs 07/15/24 06/02/25 Rx valsartan 320 mg tablet 320 mg PO DAILY #90 tabs 06/02/25 Rx metoprolol succinate 25 mg 25 mg PO DAILY #90 tabs 06/1706/02/25 Rx tablet,extended release 24 hr sitagliptin phosphate 100 mg 100 mg PO DAILY #90 tabs 05/20/25 06/02/25 Rx tablet (Januvia) donepezil 10 mg tablet 10 mg PO QHS 06/02/25 History aspirin 81 mg tablet,delayed 81 mg PO DAILY #30 tabs 0 06/06/25 Rx release cefdinir 300 mg capsule 300 mg PO DAILY #1 cap 06/06 Rx donepezil 10 mg tablet (Aricept) 10 mg PO HS #30 tabs 06/07/25 Rx memantine 5 mg-10 mg tablets in a See Rx Instructions PO .COMPLEX 06/07/25 Rx dose pack (Namenda Andressa Brewer) #49 ea atorvastatin 40 mg tablet 40 mg PO DAILY #90 tabs 05/24 03/17 Rx doxepin 10 mg capsule 10 mg PO QHS #30 caps Rx Allergies Allergy/AdvReac Type Severity Reaction Status Date / Time codeine Allergy Unknown Unknown Verified 06/03/25 10:02 Penicillins Allergy Unknown Unknown Verified 06/01/25 09:02 Vital Signs Vital Signs - 24 hr 06/10/25 13:46 Temperature 98.5 F Pulse Rate 87 Respiratory Rate 20 Blood Pressure 156/61 H Pulse Oximetry 100 Oxygen Delivery Room Air Exam Const: General: comfortable and no acute distress Other: , female, elderly, nontoxic appearance HENMT: Face/Nose/Sinus: Normal nares present Mouth: Yes moist mucous membranes Eyes: General: appearance normal, both eyes and all related structures Sclera: sclerae normal Pupils: Equal, round and reactive pupils present EOM: EOMs intact bilaterally Resp: Effort & Inspection: normal respiratory effort Auscultation: clear to auscultation bilaterally Cardio: Rate: regular rate Rhythm: regular rhythm Other: S1-S2 present without murmur, rub, ectopy GI: Other: Abdomen soft, nondistended, nontender. Normoactive bowel sounds in all quadrants. Skin: General skin exam: normal color and no rashes or lesions noted Other: Minimal erythema to the left ankle Neuro: Other: A&O x1, limited exam due to participation Extrem: Other: +1 edema to the left ankle/foot, nonpitt ing. Asymmetric compared to the right lower extremity. Psych: Other: Flat affect, no current agitation H&P: Results Labs Labs: Short CBC 06/10/25 Range/Units 15:09 WBC 8.3 (4.5-10.0) K/mm3 Hgb 12.6 (12.0-15.0) g/dL Hct 39.0 (37.0-47.0) % Plt Count 148 L (150-375) k/mm3 BMP 06/10/25 15:09 Sodium 136 L Potassium 4.0 Chloride 97 L Carbon Dioxide 30 BUN 53 H D Creatinine 1.77 H Glucose 321 H Calcium 9.8 Liver Function 06/10/25 Range/Units 15:09 Total Bilirubin 0.9 (0.2-1.3) mg/dL AST 29 (14-36) U/L ALT 13 (6-35) U/L Alkaline Phosphatase 132 H (38-126) U/L Albumin 4.5 (3.5-5.1) g/dL Urine 06/10/25 Range/Units 18:01 Urine Color Yellow (Yellow) Urine Appearance Cloudy H (Clear) Urine pH 5.0 (5.0-9.0) Ur Specific [place] 1.031 (1.001-1.035) Urine Protein 1+ H (Negative) mg/dL Urine Glucose (UA) 3+ H (Negative) mg/dL Assessment and Plan Assessment and plan (1) Left ankle swelling: Code(s): M25.472 - Effusion, left ankle Status: Acute Assessment and Plan: No precipitating trauma or fall per . No previous history of DVT. - left ankle XR, 06/10: No acute osseous abnormality. - PT/OT evaluation and treatment - US of LLE to rule out DVT - analgesics prn (2) Failure to thrive: Qualifiers: Failure to thrive age range: in adult Qualified Code(s): R62.7 - Adult failure to thrive Status: Acute Assessment and Plan: Patient now unable to ambulate and ED staff having difficulty directing the patient to try to ambulate due to her history of dementia, currently A&O x1. feels he is unable to manage the patient at home as she is currently unable to ambulate, if she is able to ambulate again he is comfortable taking her home. - PT/OT evaluation and treatment - care coordination consulted for placement (3) Dementia of Alzheimer's type with behavioral disturbance: Code(s): G30.9 - Alzheimer's disease, unspecified; F02.818 - Dementia in other diseases classified elsewhere, unspecified severity, with other behavioral disturbance Status: Chronic Assessment and Plan: - history of dementia, currently A&O x1 - reviewed Neurology note from 06/05/2025 during most recent admission: Recommended Aricept 10 mg daily, Ativan 0.5 mg 3 t.i.d., Namenda 5 mg daily (Gradually increase up to 10 mg twice a day) - patient noted to have behavioral disturbances while recently admitted from 06/03/25-06/07/25, given Zyprexa 5 mg/Haldol 5 mg/diazepam 5 mg and additional 5 mg of Haldol earlier same day but was quite somnolent during daytime hours the next day. if needing medication for agitation, will start with Zyprexa and additional Ativan dose and monitor response. (4) Type 2 diabetes mellitus: Qualifiers: Diabetes mellitus complication detail: with microalbuminuria Diabetes mellitus complication status: with kidney complications Diabetes mellitus intermodal dispatcher insulin use: without care home use Qualified Code(s): E11.29 - Type 2 diabetes mellitus with other diabetic kidney complication; R80.9 - Proteinuria, unspecified Code(s): E11.9 - Type 2 diabetes mellitus without complications Status: Chronic Assessment and Plan: - hypoglycemia protocol - POC blood glucose ACHS - correct regimen ordered - low dose TIDWM, based off BMI - A1C 8.1% on 05/28/2025 (5) Chronic renal insufficiency, stage III (moderate): Qualifiers: Chronic kidney disease stage 3 subtype: unspecified whether 3a or 3b Qualified Code(s): N18.30 - Chronic kidney disease, stage 3 unspecified Code(s): N18.30 - Chronic kidney disease, stage 3 unspecified Status: Chronic Assessment and Plan: - creatinine 1.77, BUN 53, GFR 28 upon admission on 06/10 - baseline transition mgr: 1.1-1.3, transition mgr 1.5 on 06/07 - trend renal function - trend electrolytes, correct as needed (6) Anemia: Qualifiers: Anemia type: due to chronic kidney disease Chronic kidney disease stage: stage 3 (moderate) Chronic kidney disease stage 3 subtype: unspecified whether 3a or 3b Qualified Code(s): N18.30 - Chronic kidney disease, stage 3 unspecified; D63.1 - Anemia in chronic kidney disease Code(s): D64.9 - Anemia, unspecified Status: Acute Assessment and Plan: - Hgb 12.6 upon admission, 12.3 upon d/c on 06/07 - Hx of CKD - transfuse if <7 - trend Hgb (7) Primary hypertension: Code(s): I10 - Essential (primary) hypertension Status: Acute Assessment and Plan: - chronic, currently 167/89 - continue home medications once verified, patient unable to and did not answer phone call this evening - monitor Plan UA equivocal for infection, mental status at baseline. Follow urine culture. Recently had UTI and treated with discharge on 06/07 with 1 dose of cefdinir left. Diet: Diabetic GI Prophylaxis: N/a DVT Prophylaxis: SCDs IV fluids: LR 150 mL/hour x1L Lines/Tubes: Peripheral IV Code Status: Full code Quality VTE Prophylaxis VTE prophylaxis: mechanical ordered Hospitalist MIPS Advance Care Plan I have confirmed that the patient's Advanced Care Plan is present, code status is documented, or surrogate decision maker is listed in patient medical record.: Yes Medication Reconciliation I have utilized all available resources to obtain, update and review the patients current medications (includes all prescriptions, OTC, herbals, cannabis, and nutritional supplements).: Yes
[2025-06-10 19:40] VITALS: BP 167/89; PULSE 69; RESP 18; O2SAT 99
[2025-06-10] MEDS: PANTOPRAZOLE SODIUM IV 40 MG VIAL IV PUSH (19:40)
--- NOTE | 2025-06-10 20:47 | WNDPHOTO ---
PHOTO ONLY - See Nursing Notes and/ or assessments for documentation.
[2025-06-10 20:51] VITALS: BMI 21.2
[2025-06-10] MEDS: LACTATED RINGERS 1,000 ML 150 ML IV CONT (21:03)
[2025-06-10 21:54] VITALS: BP 132/82; PULSE 95; RESP 20; TEMP 36.8; O2SAT 97
--- NOTE | 2025-06-10 22:42 | ADMGEN ---
This patient, Michelle Montiel, was admitted to [facility] Surg Room 333-01. Patient/family oriented to hospital policies and general routines including ID bracelet, bed and alarms, visiting hours, pain management, procedures, bathroom and other care routines, personal items, smoking policy, room service/diet, and visiting hours. Information on how to activate the Rapid Response Team has been discussed. Patient/Family are encouraged to report perceived risks to care and to ask questions if they do not understand what they are told or what they should do. Pt is oriented *0, unable to comprehend at this time, admission couldn't be done. Juanjose Charge nurse was notified.
[2025-06-11 05:15] VITALS: BP 149/88; PULSE 90; RESP 20; TEMP 37.2; O2SAT 98
[2025-06-11 06:52] LABS: Hematocrit 34.2 % (37.0-47.0); Hemoglobin 11.2 g/dL (12.0-15.0); Immature Granulocyte Percent A 1.0 % (0-0.5); Immature Platelet Fraction Pct 11.4 % (0.9-11.2); Lymphocytes Absolute Auto 1.30 K/mm3 (0.9-3.2); Mean Corpuscular HGB Conc 32.7 g/dl (32-36); Mean Corpuscular Hemoglobin 28.6 pg (26-34); Mean Corpuscular Volume 87.5 fl (80-100); Nucleated Red Blood Cells Absolute Auto 0.000 K/mm3 (0.0-0.012); Nucleated Red Blood Cells Perc 0.0 % (0.0-0.2); Platelet Count Result 126 k/mm3 (150-375); Red Blood Count 3.91 M/mm3 (4.2-5.4); White Blood Count 7.6 K/mm3 (4.5-10.0)
[2025-06-11 07:18] LABS: Anion Gap 11 mmol/L (4-12); Blood Urea Nitrogen 45 mg/dL (7-17); Calcium 9.4 mg/dL (8.4-10.2); Carbon Dioxide 24 mmol/L (22-30); Chloride 101 mmol/L (98-107); Estimated CRCL calculation 24 ml/min; Estimated Glomerular Filt Rate 33; Glucose 165 mg/dL (65-110); Potassium 3.9 mmol/L (3.4-5.0); Sodium 136 mmol/L (137-145)
[2025-06-11 08:00] VITALS: PULSE 90; RESP 20; O2SAT 98
--- NOTE | 2025-06-11 10:03 | PCOTNOTE ---
Attempted to see pt. for occupational therapy evaluation. Pt. is awaiting results of doppler study. Nursing aware. Following
[2025-06-11] MEDS: PANTOPRAZOLE SODIUM IV 40 MG VIAL IV PUSH (10:20)
[2025-06-11 11:43] VITALS: O2SAT 97
--- NOTE | 2025-06-11 13:24 | PCPTNOTE ---
Attempted PT evaluation, pt has ortho consult pending and other test that need to be completed prior to PT evaluation. Will follow.
[2025-06-11 13:38] VITALS: BMI 21.2
[2025-06-11 14:00] VITALS: BP 153/62; PULSE 70; RESP 22; TEMP 36.6; O2SAT 99
--- NOTE | 2025-06-11 15:23 | PCOTNOTE ---
Pt still waiting on ortho consult and has been unarousable today. Will continue to follow for OT eval.
--- NOTE | 2025-06-11 18:09 | P.PNIM_ITS ---
Progress Note: A&P Assessment and Plan (1) Left ankle swelling: Code(s): M25.472 - Effusion, left ankle Status: Acute (2) Dementia of Alzheimer's type with behavioral disturbance: Code(s): G30.9 - Alzheimer's disease, unspecified; F02.818 - Dementia in other diseases classified elsewhere, unspecified severity, with other behavioral disturbance Status: Chronic Plan Patient unable to bear weight on left lower extremity. Pain on passive flexion and palpation of left ankle, swelling in the soft tissue of tissue surrounding the medial and lateral malleolus. Superficial erythema. Neurovascular exam intact. Discussed case with Dr. Pitt. At this time he will not aspirate. She does not appear toxic, no evidence of sepsis. Check uric acid, ESR, CRP. Start prophylactic antibiotics for cefazolin. Check CT without contrast left ankle. For now, nonweightbearing left ankle. She receive Ativan last night. She has dementia with behavioral disturbance and will likely have more disturbance each night. Promote good sleep-wake cycle, reorient frequently, if needed have family stay the night. Ativan cause her to be drowsy, was concerned, we talked about the risks versus benefits. Could start something with less sedation such as Atarax. SCDs. Full code. Subjective Date/time seen: 06/11/25 18:09 Interval history: Received Ativan last night for aggressive behavior. Drowsy but arousable, left ankle pain. Otherwise denies complaints. Review of Systems Review of Systems: All systems reviewed & are unremarkable except as noted in HPI and below (Subjective) Exam Const: General: comfortable HENMT: Mouth: Yes moist mucous membranes Eyes: Pupils: Equal, round and reactive pupils present Neck: Neck: supple Resp: Effort & Inspection: normal respiratory effort Auscultation: clear to auscultation bilaterally Cardio: Rate: regular rate Rhythm: regular rhythm GI: GI Palp: Yes Soft to palpation Neuro: Motor exam (neuro): 5/5 motor strength present throughout Extrem: Other: Left ankle edema medial and lateral malleoli, slight erythema, passive range of motion past 20? plantar and dorsiflexion illicits pain and the patient screams Objective Data Vital Signs Vital Signs: Vital Signs - 24 hr 06/10/25 19:40 06/10/25 21:54 06/11/25 05:15 Temperature 98.2 F 99.0 F Pulse Rate 69 95 90 Respiratory Rate 18 20 20 Blood Pressure 167/89 H 132/82 149/88 H Pulse Oximetry 99 97 98 Oxygen Delivery 06/11/25 08:00 06/11/25 11:43 06/11/25 14:00 Temperature 97.8 F Pulse Rate 90 70 Respiratory Rate 20 22 H Blood Pressure 153/62 H Pulse Oximetry 98 97 99 Oxygen Delivery Room Air Room Air Intake/Output Intake/Output: Intake & Output 06/08/25 06/09/25 06/10/25 06/11/25 23:59 23:59 23:59 23:59 Intake Total 0 Output Total 250 Balance -250 Meds/Results Medications: Active Medications Generic Name Dose Route Start Last Admin Trade Name Freq PRN Reason Stop Dose Admin Acetaminophen 650 mg 06/10/25 19:05 Acetaminophen 325 Mg Tablet PO Q4H PRN Mild Pain (1-3) or Fever Dextrose 12.5 gm 06/10/25 19:42 Dextrose 50% 25 Gm/50 Ml Syringe IV PUSH PRN PRN Hypoglycemia Protocol Glucagon 1 mg 06/10/25 19:42 Glucagon For Inj 1 Mg Vial IM PRN PRN Hypoglycemia Protocol Glucose 15 gm 06/10/25 19:42 Glucose Oral Gel 15 Gm Of Glucse In 37.5 Gm Tube PO PRN PRN Hypoglycemia Protocol Dextrose 1,000 mls @ 100 mls/hr 06/10/25 19:42 Dextrose 5% 1,000 Ml IVPB PRN PRN Hypoglycemia Protocol Insulin Aspart 2 - 5 units 06/11/25 08:00 06/11/25 17:43 Insulin Aspart (*Bkc) 100 Units/Ml SUB-Q Not Given TIDWM MANAV Protocol Pantoprazole Sodium 40 mg 06/11/25 09:00 06/11/25 10:20 Pantoprazole Sodium Iv 40 Mg Vial IV PUSH 40 mg QAM MANAV Administration Radiology Results: ITS Impressions Ankle X-Ray 06/10/25 16:43 IMPRESSION: 1. No acute osseous abnormality. Head CT 06/10/25 18:07 IMPRESSION: 1. No acute intracranial findings. Venous Doppler Study 06/11/25 10:42 IMPRESSION: 1. No left leg DVT. 2. 5 cm Keith's cyst. Labs Labs: Laboratory Results - last 24 hr 06/10/25 06/10/25 06/11/25 18:01 20:41 05:54 WBC 7.6 RBC 3.91 L Hgb 11.2 L Hct 34.2 L MCV 87.5 MCH 28.6 MCHC 32.7 RDW 13.7 Plt Count 126 L MPV 13.4 H Immature Gran % (Auto) 1.0 H Neut % (Auto) 66.6 Lymph % (Auto) 17.1 L [place] % (Auto) 15.1 H Eos % (Auto) 0.1 Baso % (Auto) 0.1 L Lymph # (Auto) 1.30 [place] # (Auto) 1.2 H Eos # (Auto) 0.0 Baso # (Auto) 0.0 Abs Immat Gran (auto) 0.08 H Absolute Neuts (auto) 5.1 Absolute Nucleated RBC 0.000 Nucleated RBC % 0.0 % Immature Plt Fraction 11.4 H Sodium 136 L Potassium 3.9 Chloride 101 Carbon Dioxide 24 Anion Gap 11 BUN 45 H Creatinine 1.54 H Estim Creat Clear Calc 24 Estimated GFR 33 L Glucose 165 H POC Capillary Glucose 265 H Calcium 9.4 Urine Color Yellow Urine Appearance Cloudy H Urine pH 5.0 Ur Specific [place] 1.031 Urine Protein 1+ H Urine Glucose (UA) 3+ H Urine Ketones Trace H Ur Blood (Man) 1+ H Urine Nitrate Negative Urine Bilirubin Negative Urine Urobilinogen 0.2 Add Ur Microanalysis Reviewed Leukocyte Esterase Rfl Trace H Urine RBC 6-10 H Urine WBC 11-20 H Ur Squamous Epith Cells Few Cholesterol Crystals Present H Urine Bacteria None seen Urine Casts 3-5 Urine Yeast (Budding) Present H 06/11/25 06/11/25 06/11/25 08:01 11:49 16:38 WBC RBC Hgb Hct MCV MCH MCHC RDW Plt Count MPV Immature Gran % (Auto) Neut % (Auto) Lymph % (Auto) [place] % (Auto) Eos % (Auto) Baso % (Auto) Lymph # (Auto) [place] # (Auto) Eos # (Auto) Baso # (Auto) Abs Immat Gran (auto) Absolute Neuts (auto) Absolute Nucleated RBC Nucleated RBC % % Immature Plt Fraction Sodium Potassium Chloride Carbon Dioxide Anion Gap BUN Creatinine Estim Creat Clear Calc Estimated GFR Glucose POC Capillary Glucose 152 H 130 H 132 H Calcium Urine Color Urine Appearance Urine pH Ur Specific [place] Urine Protein Urine Glucose (UA) Urine Ketones Ur Blood (Man) Urine Nitrate Urine Bilirubin Urine Urobilinogen Add Ur Microanalysis Leukocyte Esterase Rfl Urine RBC Urine WBC Ur Squamous Epith Cells Cholesterol Crystals Urine Bacteria Urine Casts Urine Yeast (Budding)
[2025-06-11 20:00] VITALS: PULSE 70; RESP 22; O2SAT 99
[2025-06-11] MEDS: ceFAZolin 1 GM in SODIUM CHLORIDE 0.9% IV 50 ML 100 ML IVPB (20:10)
[2025-06-11 20:58] LABS: Uric Acid 4.9 mg/dL (2.5-7.5)
[2025-06-11 21:13] LABS: CRP 25.5 mg/dL (<1.0)
[2025-06-11 22:08] VITALS: BP 129/91; PULSE 78; RESP 16; TEMP 36.8; O2SAT 100
[2025-06-12 06:00] VITALS: BP 158/62; PULSE 100; RESP 16; TEMP 36.1; O2SAT 98
[2025-06-12 06:56] LABS: Hematocrit 37.3 % (37.0-47.0); Hemoglobin 12.1 g/dL (12.0-15.0); Immature Granulocyte Percent A 0.8 % (0-0.5); Lymphocytes Absolute Auto 1.46 K/mm3 (0.9-3.2); Mean Corpuscular HGB Conc 32.4 g/dl (32-36); Mean Corpuscular Hemoglobin 28.3 pg (26-34); Mean Corpuscular Volume 87.4 fl (80-100); Nucleated Red Blood Cells Absolute Auto 0.000 K/mm3 (0.0-0.012); Nucleated Red Blood Cells Perc 0.0 % (0.0-0.2); Platelet Count Result 136 k/mm3 (150-375); Red Blood Count 4.27 M/mm3 (4.2-5.4); White Blood Count 7.1 K/mm3 (4.5-10.0)
[2025-06-12 07:27] LABS: Anion Gap 11 mmol/L (4-12); Blood Urea Nitrogen 36 mg/dL (7-17); Calcium 9.4 mg/dL (8.4-10.2); Carbon Dioxide 26 mmol/L (22-30); Chloride 102 mmol/L (98-107); Estimated CRCL calculation 28 ml/min; Estimated Glomerular Filt Rate 38; Glucose 163 mg/dL (65-110); Magnesium 2.0 mg/dL (1.6-2.3); Potassium 4.1 mmol/L (3.4-5.0); Sodium 139 mmol/L (137-145)
[2025-06-12 08:00] VITALS: PULSE 100; RESP 16; O2SAT 98
[2025-06-12] MEDS: ceFAZolin 1 GM in SODIUM CHLORIDE 0.9% IV 50 ML 100 ML IVPB (08:47)
[2025-06-12] MEDS: PANTOPRAZOLE SODIUM IV 40 MG VIAL IV PUSH (08:47)
--- NOTE | 2025-06-12 11:55 | PCOTNOTE ---
Attempted OT eval. Patient has an ankle avulsion fx. Boot has been ordered, but not here yet. Also waiting on ortho consult for WB recommendations. Will continue to follow.
--- NOTE | 2025-06-12 11:56 | PM.IMPN ---
Progress Note: A&P Assessment and Plan (1) Dementia of Alzheimer's type with behavioral disturbance: Code(s): G30.9 - Alzheimer's disease, unspecified; F02.818 - Dementia in other diseases classified elsewhere, unspecified severity, with other behavioral disturbance Status: Chronic (2) Primary hypertension: Code(s): I10 - Essential (primary) hypertension Status: Acute (3) Ankle fracture, left: Code(s): S82.892A - Other fracture of left lower leg, initial encounter for closed fracture Status: Acute Plan 79-year-old female with history of hyperlipidemia, hypertension, GERD, dementia with behavioral disturbances, chronic renal insufficiency. She lives at home with her . He is her civil engineering assistant. Could not walk on 06/09/2025. She was her usual self before this, did not have a fall. She was brought in to [facility] ER and admitted for inability to ambulate. Initially her evaluation of left ankle included three view x-ray, this did not present any acute osseous abnormality. She did have significant pain on passive and active range of motion as well soft tissue swelling at the lateral and medial malleoli. I spoke with Orthopedic surgery and we ordered an ankle CT which demonstrates a nondisplaced avulsion fracture of the anterior distal left fibula. Orthopedic surgery has ordered a walking boot. Continue to appreciate further recommendations. Acetaminophen p.r.n. for pain. We will attempt to avoid any sedatives due to the patient's dementia with behavioral disturbances. As such, she received Ativan on the night of 06/10/2025. This left her very drowsy for the whole of the next day. Continue with frequent reorientation and promoting a good sleep-wake cycle. Continue UNDERWEAR TRIMMER doxepin and donepezil and memantine. Fall precautions, ambulate with assistance. PT/OT eval, continue to arrange for disposition with care coordination. Monitor renal function. Monitor blood pressure. At goal, continue UNDERWEAR TRIMMER valsartan 320 mg p.o. q.day. Prior to admission the patient was living at home, cared for by her . Full code. Saline lock IV Time Spent With Patient Time with patient: Greater than 35 minutes Subjective Date/time seen: 06/12/25 11:56 Interval history: No acute overnight events. Patient evaluated at bedside with present. The patient is alert, talkative and confused as her usual self. The reports she looks much better. Review of Systems Review of Systems: All systems reviewed & are unremarkable except as noted in HPI and below (Subjective) Exam Const: General: comfortable Other: A&O x1, pleasantly confused. HENMT: Mouth: Yes moist mucous membranes Eyes: Pupils: Equal, round and reactive pupils present Neck: Neck: supple Resp: Effort & Inspection: normal respiratory effort Auscultation: clear to auscultation bilaterally Cardio: Rate: regular rate Rhythm: regular rhythm GI: GI Palp: Yes Soft to palpation Neuro: Motor exam (neuro): 5/5 motor strength present throughout Extrem: Other: Left ankle edema medial and lateral malleoli in the soft tissue, slight erythema, passive range of motion past 30% on range of motion in any direction Objective Data Vital Signs Vital Signs: Vital Signs - 24 hr 06/11/25 14:00 06/11/25 20:00 06/11/25 22:08 Temperature 97.8 F 98.3 F Pulse Rate 70 70 78 Respiratory Rate 22 H 22 H 16 Blood Pressure 153/62 H 129/91 H Pulse Oximetry 99 99 100 Oxygen Delivery Room Air 06/12/25 06:00 06/12/25 08:00 06/12/25 09:34 Temperature 97.0 F L Pulse Rate 100 100 Respiratory Rate 16 16 Blood Pressure 158/62 H Pulse Oximetry 98 98 Oxygen Delivery Room Air Room Air Intake/Output Intake/Output: Intake & Output 06/09/25 06/10/25 06/11/25 06/12/25 23:59 23:59 23:59 23:59 Intake Total 270 740 Output Total 550 600 Balance -280 140 Meds/Results Medications: Active Medications Generic Name Dose Route Start Last Admin Trade Name Freq PRN Reason Stop Dose Admin Acetaminophen 650 mg 06/10/25 19:05 Acetaminophen 325 Mg Tablet PO Q4H PRN Mild Pain (1-3) or Fever Alprazolam 0.25 mg 06/12/25 11:55 Alprazolam (*Crx) 0.25 Mg Tablet PO TID PRN Anxiety Aspirin 81 mg 06/13/25 09:00 Aspirin 81 Mg Enteric Tablet PO DAILY [facility] Atorvastatin Calcium 40 mg 06/13/25 09:00 Atorvastatin 40 Mg Tablet PO DAILY [facility] Dextrose 12.5 gm 06/10/25 19:42 Dextrose 50% 25 Gm/50 Ml Syringe IV PUSH PRN PRN Hypoglycemia Protocol Donepezil HCl 10 mg 06/12/25 21:00 Donepezil Hcl 10 Mg Tablet PO QHS MANAV Doxepin HCl 10 mg 06/12/25 21:00 Doxepin Hcl 10 Mg Capsule PO QHS MANAV Glucose 15 gm 06/10/25 19:42 Glucose Oral Gel 15 Gm Of Glucse In 37.5 Gm Tube PO PRN PRN Hypoglycemia Protocol Dextrose 1,000 mls @ 100 mls/hr 06/10/25 19:42 Dextrose 5% 1,000 Ml IVPB PRN PRN Hypoglycemia Protocol Insulin Aspart 2 - 5 units 06/11/25 08:00 06/12/25 08:45 Insulin Aspart (*Bkc) 100 Units/Ml SUB-Q Not Given TIDWM [facility] Protocol Non-Formulary Medication 1,000 mcg 06/13/25 09:00 Mecobalamin (Vitamin B12) SUBLINGUAL 07/13/25 08:59 DAILY MANAV Non-Formulary Medication 0 each 06/12/25 12:00 Memantine [Namenda Titration Osman] .ROUTE 07/12/25 11:59 .COMPLEX MANAV Non-Formulary Medication 320 mg 06/12/25 11:55 Valsartan PO 07/12/25 11:54 DAILY MANAV Pantoprazole Sodium 40 mg 06/11/25 09:00 06/12/25 08:47 Pantoprazole Sodium Iv 40 Mg Vial IV PUSH 40 mg QAM MANAV Administration Radiology Results: ITS Impressions Ankle X-Ray 06/10/25 16:43 IMPRESSION: 1. No acute osseous abnormality. Head CT 06/10/25 18:07 IMPRESSION: 1. No acute intracranial findings. Venous Doppler Study 06/11/25 10:42 IMPRESSION: 1. No left leg DVT. 2. 5 cm Keith's cyst. Ankle CT 06/12/25 09:15 IMPRESSION: 1. Nondisplaced avulsion fracture of anterior distal left fibula. I discussed this result with Dr. Tom. Labs Labs: Laboratory Results - last 24 hr 06/11/25 06/11/25 06/11/25 11:49 16:38 20:19 WBC RBC Hgb Hct MCV MCH MCHC RDW Plt Count MPV Immature Gran % (Auto) Neut % (Auto) Lymph % (Auto) [place] % (Auto) Eos % (Auto) Baso % (Auto) Lymph # (Auto) [place] # (Auto) Eos # (Auto) Baso # (Auto) Abs Immat Gran (auto) Absolute Neuts (auto) Absolute Nucleated RBC Nucleated RBC % ESR 107 H Sodium Potassium Chloride Carbon Dioxide Anion Gap BUN Creatinine Estim Creat Clear Calc Estimated GFR Glucose POC Capillary Glucose 130 H 132 H Uric Acid 4.9 Calcium Magnesium C-Reactive Protein 25.5 H 06/11/25 06/12/25 06/12/25 20:46 06:49 07:51 WBC 7.1 RBC 4.27 Hgb 12.1 Hct 37.3 MCV 87.4 MCH 28.3 MCHC 32.4 RDW 13.5 Plt Count 136 L MPV 12.4 H Immature Gran % (Auto) 0.8 H Neut % (Auto) 65.0 Lymph % (Auto) 20.5 [place] % (Auto) 13.5 H Eos % (Auto) 0.1 Baso % (Auto) 0.1 L Lymph # (Auto) 1.46 [place] # (Auto) 1.0 H Eos # (Auto) 0.0 Baso # (Auto) 0.0 Abs Immat Gran (auto) 0.06 H Absolute Neuts (auto) 4.6 Absolute Nucleated RBC 0.000 Nucleated RBC % 0.0 ESR Sodium 139 Potassium 4.1 Chloride 102 Carbon Dioxide 26 Anion Gap 11 BUN 36 H Creatinine 1.34 H Estim Creat Clear Calc 28 Estimated GFR 38 L Glucose 163 H POC Capillary Glucose 206 H 154 H Uric Acid Calcium 9.4 Magnesium 2.0 C-Reactive Protein 06/12/25 11:36 WBC RBC Hgb Hct MCV MCH MCHC RDW Plt Count MPV Immature Gran % (Auto) Neut % (Auto) Lymph % (Auto) [place] % (Auto) Eos % (Auto) Baso % (Auto) Lymph # (Auto) [place] # (Auto) Eos # (Auto) Baso # (Auto) Abs Immat Gran (auto) Absolute Neuts (auto) Absolute Nucleated RBC Nucleated RBC % ESR Sodium Potassium Chloride Carbon Dioxide Anion Gap BUN Creatinine Estim Creat Clear Calc Estimated GFR Glucose POC Capillary Glucose 186 H Uric Acid Calcium Magnesium C-Reactive Protein
[2025-06-12] MEDS: VALSARTAN 160 MG TABLET 320 MG PO (12:16)
[2025-06-12] MEDS: ALPRAZolam (*CRX) 0.25 MG TABLET PO ×2 (12:16→21:03)
[2025-06-12 14:00] VITALS: BP 139/72; PULSE 99; RESP 18; TEMP 35.9; O2SAT 100
[2025-06-12] MEDS: INSULIN ASPART (*BKC) 100 UNITS/ML SUB-Q (17:56)
[2025-06-12 20:00] VITALS: PULSE 95; RESP 16; O2SAT 99
[2025-06-12] MEDS: DONEPEZIL HCL 10 MG TABLET PO (21:03)
[2025-06-12] MEDS: DOXEPIN HCL 10 MG CAPSULE PO (21:03)
[2025-06-12 22:00] VITALS: BP 162/65; PULSE 95; RESP 16; TEMP 37.1; O2SAT 99
[2025-06-12 22:16] VITALS: O2SAT 99
[2025-06-13 06:00] VITALS: BP 138/102; PULSE 90; RESP 16; TEMP 36.9; O2SAT 99
[2025-06-13 06:56] LABS: Hematocrit 35.3 % (37.0-47.0); Hemoglobin 11.5 g/dL (12.0-15.0); Immature Granulocyte Percent A 1.3 % (0-0.5); Lymphocytes Absolute Auto 1.66 K/mm3 (0.9-3.2); Mean Corpuscular HGB Conc 32.6 g/dl (32-36); Mean Corpuscular Hemoglobin 28.5 pg (26-34); Mean Corpuscular Volume 87.6 fl (80-100); Nucleated Red Blood Cells Absolute Auto 0.000 K/mm3 (0.0-0.012); Nucleated Red Blood Cells Perc 0.0 % (0.0-0.2); Platelet Count Result 140 k/mm3 (150-375); Red Blood Count 4.03 M/mm3 (4.2-5.4); White Blood Count 7.8 K/mm3 (4.5-10.0)
[2025-06-13 07:28] LABS: Anion Gap 7 mmol/L (4-12); Blood Urea Nitrogen 29 mg/dL (7-17); Calcium 9.1 mg/dL (8.4-10.2); Carbon Dioxide 27 mmol/L (22-30); Chloride 101 mmol/L (98-107); Estimated CRCL calculation 32 ml/min; Estimated Glomerular Filt Rate 44; Glucose 154 mg/dL (65-110); Magnesium 2.1 mg/dL (1.6-2.3); Potassium 3.6 mmol/L (3.4-5.0); Sodium 135 mmol/L (137-145)
--- NOTE | 2025-06-13 10:57 | PM.IMPN ---
Progress Note: A&P Assessment and Plan (1) Dementia of Alzheimer's type with behavioral disturbance: Code(s): G30.9 - Alzheimer's disease, unspecified; F02.818 - Dementia in other diseases classified elsewhere, unspecified severity, with other behavioral disturbance Status: Chronic (2) Primary hypertension: Code(s): I10 - Essential (primary) hypertension Status: Acute (3) Ankle fracture, left: Code(s): S82.892A - Other fracture of left lower leg, initial encounter for closed fracture Status: Acute Plan 79-year-old female with history of hyperlipidemia, hypertension, GERD, dementia with behavioral disturbances, chronic renal insufficiency. She lives at home with her . He is her school services officer. Could not walk on 06/09/2025. She was her usual self before this, did not have a fall. She was brought in to [facility] ER and admitted for inability to ambulate. Initially her evaluation of left ankle included three view x-ray, this did not present any acute osseous abnormality. She did have significant pain on passive and active range of motion as well soft tissue swelling at the lateral and medial malleoli. I spoke with Orthopedic surgery and we ordered an ankle CT which demonstrates a nondisplaced avulsion fracture of the anterior distal left fibula. Orthopedic surgery has ordered a walking boot. Continue to appreciate further recommendations. Acetaminophen p.r.n. for pain. We will attempt to avoid any sedatives due to the patient's dementia with behavioral disturbances. As such, she received Ativan on the night of 06/10/2025. This left her very drowsy for the whole of the next day. Continue with frequent reorientation and promoting a good sleep-wake cycle. Continue SLOT ROUTER doxepin and donepezil and memantine. Fall precautions, ambulate with assistance. PT/OT eval, continue to arrange for disposition with care coordination. No changes at this point - referrals for SNF placement have been sent out, likely will hear back tomorrow. Per ortho - keep patient weight bearing as tolerated with boot. Monitor renal function. Monitor blood pressure. At goal, continue SLOT ROUTER valsartan 320 mg p.o. q.day. Prior to admission the patient was living at home, cared for by her . Full code. Saline lock IV Subjective Date/time seen: 06/13/25 10:57 Interval history: No overnight events. not present bedside. Per nursing staff, patient has been sleeping most of the morning - received Zyprexa last night. Working with [facility] regarding placement. Labs/vitals remain stable. Per ortho - keep patient weight bearing as tolerated with boot. Review of Systems Review of Systems: All systems reviewed & are unremarkable except as noted in HPI and below (Subjective) ROS unobtainable: Yes unobtainable due to mental status (Severely limited due to dementia) Exam Const: General: comfortable and no acute distress Other: A&O x1, pleasantly confused. HENMT: Face/Nose/Sinus: Normal nares present Mouth: Yes moist mucous membranes Eyes: General: appearance normal, both eyes and all related structures Sclera: sclerae normal Pupils: Equal, round and reactive pupils present EOM: EOMs intact bilaterally Neck: Neck: supple Resp: Effort & Inspection: normal respiratory effort Auscultation: clear to auscultation bilaterally Cardio: Rate: regular rate Rhythm: regular rhythm Other: S1-S2 present without murmur, rub, ectopy GI: Other: Abdomen soft, nondistended, nontender. Normoactive bowel sounds in all quadrants. Skin: General skin exam: normal color and no rashes or lesions noted Other: Minimal erythema to the left ankle Neuro: Cranial nerves: Yes Equal, round and reactive pupils present Motor exam (neuro): 5/5 motor strength present throughout Other: A&O x1, limited exam due to participation Extrem: Other: Left ankle edema medial and lateral malleoli in the soft tissue, slight erythema, passive range of motion past 30% on range of motion in any direction Psych: Other: Flat affect, no current agitation Objective Data Vital Signs Vital Signs: Vital Signs - 24 hr 06/12/25 14:00 06/12/25 20:00 06/12/25 22:00 Temperature 96.6 F L 98.7 F Pulse Rate 99 95 95 Respiratory Rate 18 16 16 Blood Pressure 139/72 162/65 H Pulse Oximetry 100 99 99 Oxygen Delivery Room Air 06/12/25 22:16 06/13/25 06:00 Temperature 98.4 F Pulse Rate 90 Respiratory Rate 16 Blood Pressure 138/102 H Pulse Oximetry 99 99 Oxygen Delivery Room Air Intake/Output Intake/Output: Intake & Output 06/10/25 06/11/25 06/12/2506/13/25 23:59 23:59 23:59 23:59 Intake Total 270 1220 450 Output Total 550 600 Balance -280 620 450 Meds/Results Medications: Active Medications Generic Name Dose Route Start Last Admin Trade Name Freq PRN Reason Stop Dose Admin Acetaminophen 650 mg 06/10/25 19:05 Acetaminophen 325 Mg Tablet PO Q4H PRN Mild Pain (1-3) or Fever Alprazolam 0.25 mg 06/12/25 11:55 06/12/25 21:03 Alprazolam (*Crx) 0.25 Mg Tablet PO 0.25 mg TID PRN Administration Anxiety Aspirin 81 mg 06/13/25 09:00 Aspirin 81 Mg Enteric Tablet PO DAILY MANAV Atorvastatin Calcium 40 mg 06/13/25 09:00 Atorvastatin 40 Mg Tablet PO DAILY MANAV Cyanocobalamin 1,000 mcg 06/13/25 09:00 Cyanocobalamin 1,000 Mcg Tablet PO DAILY MANAV Dextrose 12.5 gm 06/10/25 19:42 Dextrose 50% 25 Gm/50 Ml Syringe IV PUSH PRN PRN Hypoglycemia Protocol Donepezil HCl 10 mg 06/12/25 21:00 06/12/25 21:03 Donepezil Hcl 10 Mg Tablet PO 10 mg QHS MANAV Administration Doxepin HCl 10 mg 06/12/25 21:00 06/12/25 21:03 Doxepin Hcl 10 Mg Capsule PO 10 mg QHS MANAV Administration Glucose 15 gm 06/10/25 19:42 Glucose Oral Gel 15 Gm Of Glucse In 37.5 Gm Tube PO PRN PRN Hypoglycemia Protocol Dextrose 1,000 mls @ 100 mls/hr 06/10/25 19:42 Dextrose 5% 1,000 Ml IVPB PRN PRN Hypoglycemia Protocol Insulin Aspart 2 - 5 units 06/11/25 08:00 06/13/25 08:13 Insulin Aspart (*Bkc) 100 Units/Ml SUB-Q Not Given TIDWM COUNTS INCLUDE 234 BEDS AT THE [facility] Protocol Miscellaneous Information 1 each 06/12/25 00:01 Memantine Titration Pack Continued, Please Enter Complete Order With Current Mg/Freq Dos XX 07/12/25 00:00 CLARIFY MANAV Non-Formulary Medication 0 each 06/12/25 12:00 Memantine [Namenda Titration Osman] .ROUTE 07/12/25 11:59 .COMPLEX MANAV Olanzapine 5 mg 06/12/25 21:20 06/13/25 08:10 Olanzapine 5 Mg Tablet PO Not Given HS MANAV Valsartan 320 mg 06/12/25 12:00 06/12/25 12:16 Valsartan 160 Mg Tablet PO 320 mg DAILY MANAV Administration Radiology Results: ITS Impressions Ankle X-Ray 06/10/25 16:43 IMPRESSION: 1. No acute osseous abnormality. Head CT 06/10/25 18:07 IMPRESSION: 1. No acute intracranial findings. Venous Doppler Study 06/11/25 10:42 IMPRESSION: 1. No left leg DVT. 2. 5 cm Keith's cyst. Ankle CT 06/12/25 09:15 IMPRESSION: 1. Nondisplaced avulsion fracture of anterior distal left fibula. I discussed this result with Dr. Tom. Labs Labs: Laboratory Results - last 24 hr 06/12/25 06/12/25 06/12/25 11:36 17:37 21:18 WBC RBC Hgb Hct MCV MCH MCHC RDW Plt Count MPV Immature Gran % (Auto) Neut % (Auto) Lymph % (Auto) [place] % (Auto) Eos % (Auto) Baso % (Auto) Lymph # (Auto) [place] # (Auto) Eos # (Auto) Baso # (Auto) Abs Immat Gran (auto) Absolute Neuts (auto) Absolute Nucleated RBC Nucleated RBC % Sodium Potassium Chloride Carbon Dioxide Anion Gap BUN Creatinine Estim Creat Clear Calc Estimated GFR Glucose POC Capillary Glucose 186 H 341 H 235 H Calcium Magnesium 06/13/25 06/13/25 06:20 07:50 WBC 7.8 RBC 4.03 L Hgb 11.5 L Hct 35.3 L MCV 87.6 MCH 28.5 MCHC 32.6 RDW 13.4 Plt Count 140 L MPV 12.5 H Immature Gran % (Auto) 1.3 H Neut % (Auto) 64.3 Lymph % (Auto) 21.4 [place] % (Auto) 12.8 H Eos % (Auto) 0.1 Baso % (Auto) 0.1 L Lymph # (Auto) 1.66 [place] # (Auto) 1.0 H Eos # (Auto) 0.0 Baso # (Auto) 0.0 Abs Immat Gran (auto) 0.10 H Absolute Neuts (auto) 5.0 Absolute Nucleated RBC 0.000 Nucleated RBC % 0.0 Sodium 135 L Potassium 3.6 Chloride 101 Carbon Dioxide 27 Anion Gap 7 BUN 29 H Creatinine 1.18 H Estim Creat Clear Calc 32 Estimated GFR 44 L Glucose 154 H POC Capillary Glucose 160 H Calcium 9.1 Magnesium 2.1 Quality VTE Prophylaxis VTE prophylaxis: mechanical ordered
[2025-06-13 14:00] VITALS: BP 137/45; PULSE 91; RESP 18; TEMP 36.5; O2SAT 100
[2025-06-13] MEDS: INSULIN ASPART (*BKC) 100 UNITS/ML SUB-Q (17:31)
[2025-06-13] MEDS: ALPRAZolam (*CRX) 0.25 MG TABLET PO (21:22)
[2025-06-13] MEDS: DOXEPIN HCL 10 MG CAPSULE PO (21:22)
[2025-06-13] MEDS: DONEPEZIL HCL 10 MG TABLET PO (21:22)
[2025-06-13 22:00] VITALS: BP 151/67; PULSE 109; RESP 16; TEMP 36.6; O2SAT 100
[2025-06-13 23:40] VITALS: PULSE 110; RESP 20; O2SAT 97
[2025-06-14 06:00] VITALS: BP 120/53; PULSE 93; RESP 12; TEMP 36.8; O2SAT 100
--- NOTE | 2025-06-14 12:46 | PCNFU ---
Nutrition Follow-Up Complete: Inadequate oral intake related to altered mental status, somnolence as evidenced by RN report, 0% intakes Textures appropriate for patient needs - Goal is met Improved PO intake when medically able - Progressing with goal. COntinue same goal Goal: Pt current nutrition is Diabetic consistent carb diet. Nutrition recommendation: Glucerna TID (220 kcal, 10 g protein each) Last recorded weight is 57.8 kg. Bowel Motility: +2 BM 06/13 Labs Reviewed: No new labs today Meds Noted: Novolog Skin: No skin issues Additional Notes: Able to talk to patient . Ate about 25% lunch. Intakes 0-100% yesterday. She does drink nutrition supplements at home. Will add Glucerna TID for 220 kcal and 10 g protein each. Monitoring mental status, intakes, swallowing ability, weights, labs, plan of care Follow up in 3 days
--- NOTE | 2025-06-14 13:21 | PM.CNOR ---
Assessment and Plan Assessment and plan (1) Ankle fracture, left: Code(s): S82.892A - Other fracture of left lower leg, initial encounter for closed fracture Status: Acute Assessment and Plan: 79-year-old female presented with complaints of left ankle pain and inability to bear weight on the left lower extremity. Radiographs initially reveal no evidence of fracture, dislocation or acute abnormalities. Diffuse osteopenia was noted. A CT scan of the left ankle subsequently revealed a nondisplaced avulsion fracture of anterior distal left fibula. The fracture type and injury as well as radiographs discussed with the patient and family. Operative and nonoperative treatment options reviewed. Recommended non operative treatment. Risk of nonunion, malunion or late displacement discussed. Stiffness, pain and possible dysfunction of the joint discussed. Fracture precautions and activity restrictions reviewed. The patient verbalizes understanding. Patient is fit with a fracture boot on the left lower extremity. May remove for ice and elevation. Pain control. Weightbearing as tolerated with boot in place. Will follow up in the outpatient orthopedic clinic in 4 weeks for repeat radiographs and to monitor progress. Patient has been verbalized understanding. Thank you for allowing us to assist in the care of this patient. Plan Reviewed history, exam, radiographs and current labs with attending MD and covering surgeon, Dr. Cassidy, who agrees with current plan as indicated above. No further recommendations from Dr. Cassidy at this time. History of Present Illness HPI Consult date: 06/14/25 Chief complaint: Dementia Narrative: 79-year-old female with a history of dementia presented to the emergency room with complaints of pain in the left lower extremity and inability to bear weight. Initial radiographs reveal no evidence of fracture, dislocation or acute abnormalities. Joint swelling noted on physical exam per medical records and family. A CT scan of the left lower extremity was obtained which reveals a nondisplaced avulsion fracture of anterior distal left fibula. orthopedic consult requested for further evaluation and management. Review of Systems Review of Systems: All systems reviewed & are unremarkable except as noted in HPI and below PMFSH Past Medical History Medical History Dementia of Alzheimer's type with behavioral disturbance Chronic renal insufficiency, stage III (moderate) Anemia Palpitations Hyperlipidemia GERD (gastroesophageal reflux disease) Accelerated essential hypertension Type 2 diabetes mellitus Surgical History Surgical History History of ear surgery (~2020) left tube removal - hole inner ear History of ankle surgery History of arthroplasty of both wrists Hx laparoscopic cholecystectomy Family History Family History Grandparent Diabetes mellitus Mother Diabetes mellitus Social History Social History Smoking status: Never smoker Second hand tobacco smoke exposure: No Alcohol intake: never Substance use: never Substance use type: does not use Lack of Transportation: No Lack of Food: Never True Current Housing: I Have Housing Concerned About Future Housing: No Difficulty Paying Gas/Electric Bills: No Difficulty Paying for Meds: No Currently Unemployed: No Education: High School Diploma/GED Difficulty w/ Childcare or Family Care: No Living arrangements: with family Occupation/Education: retired Gender identity (if verbalized by the patient): Female Sexual Orientation (if Verbalized by the Patient): Straight or Heterosexual Spiritual care concerns: No Agree to blood products: Yes Meds Home Medications and Allergies Home Medications ?Medication ?Instructions ?Recorded ?Confirmed ?Type mecobalamin (vitamin B12) 1,000 1,000 mcg sublingual DAILY #90 tabs 02/01/22 06/11/25 Rx mcg disintegrating tablet,sublingual alprazolam 0.25 mg tablet 0.25 mg PO TID PRN anxiety #90 tabs 07/15/24 06/11/25 Rx valsartan 320 mg tablet 320 mg PO DAILY #90 tabs 09/07/24 06/11/25 Rx metoprolol succinate 25 mg 25 mg PO DAILY #90 tabs 03/01/25 06/11/25 Rx tablet,extended release 24 hr Held on 06/11/25. Instructions: held due to BP not requiring it sitagliptin phosphate 100 mg 100 mg PO DAILY #90 tabs 05/20/25 06/11/25 Rx tablet (Januvia) donepezil 10 mg tablet 10 mg PO QHS 06/02/25 06/11/25 History aspirin 81 mg tablet,delayed 81 mg PO DAILY #30 tabs 06/06/25 06/11/25 Rx release cefdinir 300 mg capsule 300 mg PO DAILY #1 cap 06/06/25 06/11/25 Rx donepezil 10 mg tablet (Aricept) 10 mg PO HS #30 tabs 06/07/25 06/11/25 Rx memantine 5 mg-10 mg tablets in a See Rx Instructions PO .COMPLEX 06/07/25 06/11/25 Rx dose pack (Myriam Brewer) #49 ea atorvastatin 40 mg tablet 40 mg PO DAILY #90 tabs 06/08/25 06/11/25 Rx doxepin 10 mg capsule 10 mg PO QHS #30 caps 06/08/25 06/11/25 Rx Allergies Allergy/AdvReac Type Severity Reaction Status Date / Time codeine Allergy Unknown Unknown Verified 06/03/25 10:02 Penicillins Allergy Unknown Unknown Verified 06/01/25 09:02 Vital Signs Vital Signs - 24 hr 06/13/25 14:00 06/13/25 20:30 06/13/25 22:00 Temperature 36.5 C 36.6 C Pulse Rate 91 109 H Respiratory Rate 18 16 Blood Pressure 137/45 L 151/67 H Pulse Oximetry 100 100 Oxygen Delivery Room Air Fraction of Inspired Oxygen 06/13/25 23:40 06/14/25 06:00 06/14/25 08:00 Temperature 36.8 C Pulse Rate 110 H 93 Respiratory Rate 20 12 Blood Pressure 120/53 L Pulse Oximetry 97 100 Oxygen Delivery Room Air Room Air Fraction of Inspired Oxygen 21 Exam Const: General: cooperative Limitations: no limitations HENMT: Head: normal to inspection Ears: hearing grossly normal bilaterally Face/Nose/Sinus: Normal external nose present Mouth: Yes moist mucous membranes Eyes: General: appearance normal, both eyes and all related structures Pupils: Equal, round and reactive pupils present EOM: EOMs intact bilaterally Neck: Neck: normal visual inspection Chest: Chest palpation & inspection: normal inspection of the chest Resp: Effort & Inspection: normal respiratory effort and able to speak in complete sentences Cardio: Jugular venous distension: no JVD Neuro: General: patient oriented x3 Cranial nerves: Yes Equal, round and reactive pupils present and Yes Normal hearing present Extrem: General: capillary refill normal Right lower extremity: normal to inspection, full ROM, normal capillary refill, ankle Details: normal to inspection and no edema; no tenderness and no swelling and foot Details: normal capillary refill, toes with normal ROM and vascular exam Details: dorsalis pedis pulse present; no tenderness, no ecchymosis and no crepitus Left lower extremity: normal capillary refill, ankle Details: abnormal to inspection Details: other ( Moderate lateral joint swelling), tenderness Location: of the anterior talofibular ligament, anterolaterally and other ( CFL), swelling Details: laterally and anteriorly, no edema, abnormal ROM Details: pain with active ROM Details: with plantar flexion, with inversion and with eversion, pain with passive ROM Details: with plantar flexion, with dorsiflexion, with inversion and with eversion and with range as follows ( full range of motion testing deferred due to fracture), ecchymosis ( moderate lateral ankle) and crepitus ( mild lateral malleolus) Details: at the lateral malleolus; no abrasions and no lacerations and foot Details: normal capillary refill, normal to inspection, toes with normal ROM, no edema, vascular exam Details: dorsalis pedis pulse present, tendon exam active flexion normal and active extension normal and motor-sensory exam light-touch normal; no tenderness and no unusual warmth; no edema Results Labs 06/13/25 06:20 06/13/25 06:20 Labs: Abnormal lab results 06/13/25 06/13/25 06/14/25 Range/Units 16:55 20:45 07:55 POC Capillary Glucose 203 H 202 H 204 H (65-105) mg/dl 06/14/25 Range/Units 11:32 POC Capillary Glucose 258 H (65-105) mg/dl H & H 06/10/25 06/11/25 06/12/25 Range/Units 15:09 05:54 06:49 Hgb 12.6 11.2 L 12.1 (12.0-15.0) g/dL Hct 39.0 34.2 L 37.3 (37.0-47.0) % 06/13/25 Range/Units 06:20 Hgb 11.5 L (12.0-15.0) g/dL Hct 35.3 L (37.0-47.0) % All other labs normal.
[2025-06-14] MEDS: VALSARTAN 160 MG TABLET 320 MG PO (13:25)
[2025-06-14] MEDS: ASPIRIN 81 MG ENTERIC TABLET PO (13:25)
[2025-06-14] MEDS: ATORVASTATIN 40 MG TABLET PO (13:25)
[2025-06-14] MEDS: CYANOCOBALAMIN 1,000 MCG TABLET 1000 MCG PO (13:25)
[2025-06-14] MEDS: INSULIN ASPART (*BKC) 100 UNITS/ML SUB-Q ×2 (13:26→18:33)
--- NOTE | 2025-06-14 13:54 | P.PNIM_ITS ---
Progress Note: A&P Assessment and Plan (1) Dementia of Alzheimer's type with behavioral disturbance: Code(s): G30.9 - Alzheimer's disease, unspecified; F02.818 - Dementia in other diseases classified elsewhere, unspecified severity, with other behavioral disturbance Status: Chronic (2) Primary hypertension: Code(s): I10 - Essential (primary) hypertension Status: Acute (3) Ankle fracture, left: Code(s): S82.892A - Other fracture of left lower leg, initial encounter for closed fracture Status: Acute Plan 79-year-old female with history of hyperlipidemia, hypertension, GERD, dementia with behavioral disturbances, chronic renal insufficiency. She lives at home with her . 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 Could not walk on 06/09/2025. She was her usual self before this, did not have a fall. She was brought in to [facility] ER and admitted for inability to ambulate. Initially her evaluation of left ankle included three view x-ray, this did not present any acute osseous abnormality. She did have significant pain on passive and active range of motion as well soft tissue swelling at the lateral and medial malleoli. I spoke with Orthopedic surgery and we ordered an ankle CT which demonstrates a nondisplaced avulsion fracture of the anterior distal left fibula. Orthopedic surgery has ordered a walking boot. Continue to appreciate further recommendations. Acetaminophen p.r.n. for pain. We will attempt to avoid any sedatives due to the patient's dementia with behavioral disturbances. As such, she received Ativan on the night of 06/10/2025. This left her very drowsy for the whole of the next day. Continue with frequent reorientation and promoting a good sleep-wake cycle. Continue [employer] doxepin and donepezil and memantine. Fall precautions, ambulate with assistance. PT/OT eval, continue to arrange for disposition with care coordination. No changes at this point - referrals for SNF placement have been sent out, pending placement Per ortho - keep patient weight bearing as tolerated with boot. Follow up in in in 4 weeks Monitor renal function. Monitor blood pressure. At goal, continue [employer] valsartan 320 mg p.o. q.day. Prior to admission the patient was living at home, cared for by her . Full code. Saline lock IV Lovenox for DVT prophylaxis Time Spent With Patient Time: 56 minutes Subjective Date/time seen: 06/14/25 13:54 Interval history: Orthopedic surgery consulted for ankle fracture. Nonop Received zyprexa last night. having minimal pain, hasn't used tylenol. Has a walking shoe Pending SNF Review of Systems Review of Systems: All systems reviewed & are unremarkable except as noted in HPI and below (Subjective) ROS unobtainable: Yes unobtainable due to mental status (Severely limited due to dementia) Objective Data Vital Signs Vital Signs: Vital Signs - 24 hr 06/13/25 14:00 06/13/25 20:30 06/13/25 22:00 Temperature 97.7 F 97.8 F Pulse Rate 91 109 H Respiratory Rate 18 16 Blood Pressure 137/45 L 151/67 H Pulse Oximetry 100 100 Oxygen Delivery Room Air Fraction of Inspired Oxygen 06/13/25 23:40 06/14/25 06:00 06/14/25 08:00 Temperature 98.3 F Pulse Rate 110 H 93 Respiratory Rate 20 12 Blood Pressure 120/53 L Pulse Oximetry 97 100 Oxygen Delivery Room Air Room Air Fraction of Inspired Oxygen 21 Intake/Output Intake/Output: Intake & Output 06/11/25 06/12/25 06/13/25 06/14/25 23:59 23:59 23:59 23:59 Intake Total 270 1220 810 690 Output Total 550 600 Balance -280 620 810 690 Meds/Results Medications: Active Medications Generic Name Dose Route Start Last Admin Trade Name Freq PRN Reason Stop Dose Admin Acetaminophen 650 mg 06/10/25 19:05 Acetaminophen 325 Mg Tablet PO Q4H PRN Mild Pain (1-3) or Fever Alprazolam 0.25 mg 06/12/25 11:55 06/13/25 21:22 Alprazolam (*Crx) 0.25 Mg Tablet PO 0.25 mg TID PRN Administration Anxiety Aspirin 81 mg 06/13/25 09:00 06/14/25 13:25 Aspirin 81 Mg Enteric Tablet PO 81 mg DAILY MANAV Administration Atorvastatin Calcium 40 mg 06/13/25 09:00 06/14/25 13:25 Atorvastatin 40 Mg Tablet PO 40 mg DAILY MANAV Administration Cyanocobalamin 1,000 mcg 06/13/25 09:00 06/14/25 13:25 Cyanocobalamin 1,000 Mcg Tablet PO 1,000 mcg DAILY MANAV Administration Dextrose 12.5 gm 06/10/25 19:42 Dextrose 50% 25 Gm/50 Ml Syringe IV PUSH PRN PRN Hypoglycemia Protocol Donepezil HCl 10 mg 06/12/25 21:00 06/13/25 21:22 Donepezil Hcl 10 Mg Tablet PO 10 mg QHS MANAV Administration Doxepin HCl 10 mg 06/12/25 21:00 06/13/25 21:22 Doxepin Hcl 10 Mg Capsule PO 10 mg QHS MANAV Administration Glucose 15 gm 06/10/25 19:42 Glucose Oral Gel 15 Gm Of Glucse In 37.5 Gm Tube PO PRN PRN Hypoglycemia Protocol Dextrose 1,000 mls @ 100 mls/hr 06/10/25 19:42 Dextrose 5% 1,000 Ml IVPB PRN PRN Hypoglycemia Protocol Insulin Aspart 2 - 5 units 06/11/25 08:00 06/14/25 13:26 Insulin Aspart (*Bkc) 100 Units/Ml SUB-Q 3 units TIDWM MANAV Administration Protocol Olanzapine 5 mg 06/12/25 21:20 06/13/25 21:22 Olanzapine 5 Mg Tablet PO 5 mg HS MANAV Administration Valsartan 320 mg 06/12/25 12:00 06/14/25 13:25 Valsartan 160 Mg Tablet PO 320 mg DAILY MANAV Administration Radiology Results: ITS Impressions Ankle X-Ray 06/10/25 16:43 IMPRESSION: 1. No acute osseous abnormality. Head CT 06/10/25 18:07 IMPRESSION: 1. No acute intracranial findings. Venous Doppler Study 06/11/25 10:42 IMPRESSION: 1. No left leg DVT. 2. 5 cm Keith's cyst. Ankle CT 06/12/25 09:15 IMPRESSION: 1. Nondisplaced avulsion fracture of anterior distal left fibula. I discussed this result with Dr. Tom. Labs Labs: Laboratory Results - last 24 hr 06/13/25 06/13/25 06/14/25 16:55 20:45 07:55 POC Capillary Glucose 203 H 202 H 204 H 06/14/25 11:32 POC Capillary Glucose 258 H Quality VTE Prophylaxis VTE prophylaxis: mechanical ordered and pharmacologic ordered
[2025-06-14 14:00] VITALS: BP 123/49; PULSE 81; RESP 18; TEMP 35.8; O2SAT 100
[2025-06-14] MEDS: DOXEPIN HCL 10 MG CAPSULE PO (20:25)
[2025-06-14] MEDS: DONEPEZIL HCL 10 MG TABLET PO (20:25)
[2025-06-14] MEDS: ALPRAZolam (*CRX) 0.25 MG TABLET PO (20:26)
[2025-06-14 22:00] VITALS: BP 144/62; PULSE 110; RESP 18; TEMP 37.2; O2SAT 100
[2025-06-15 05:46] VITALS: BP 145/51; PULSE 92; RESP 18; TEMP 36.6; O2SAT 100
--- NOTE | 2025-06-15 12:43 | PM.IMPN ---
Progress Note: A&P Assessment and Plan (1) Dementia of Alzheimer's type with behavioral disturbance: Code(s): G30.9 - Alzheimer's disease, unspecified; F02.818 - Dementia in other diseases classified elsewhere, unspecified severity, with other behavioral disturbance Status: Chronic (2) Primary hypertension: Code(s): I10 - Essential (primary) hypertension Status: Acute (3) Ankle fracture, left: Code(s): S82.892A - Other fracture of left lower leg, initial encounter for closed fracture Status: Acute Plan 79-year-old female with history of hyperlipidemia, hypertension, GERD, dementia with behavioral disturbances, chronic renal insufficiency. She lives at home with her . 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 Could not walk on 06/09/2025. She was her usual self before this, did not have a fall. She was brought in to [facility] ER and admitted for inability to ambulate. Initially her evaluation of left ankle included three view x-ray, this did not present any acute osseous abnormality. She did have significant pain on passive and active range of motion as well soft tissue swelling at the lateral and medial malleoli. I spoke with Orthopedic surgery and we ordered an ankle CT which demonstrates a nondisplaced avulsion fracture of the anterior distal left fibula. Orthopedic surgery has ordered a walking boot. Continue to appreciate further recommendations. Acetaminophen p.r.n. for pain. We will attempt to avoid any sedatives due to the patient's dementia with behavioral disturbances. As such, she received Ativan on the night of 06/10/2025. This left her very drowsy for the whole of the next day. Continue with frequent reorientation and promoting a good sleep-wake cycle. Continue [employer] doxepin and donepezil and memantine. Fall precautions, ambulate with assistance. PT/OT eval, continue to arrange for disposition with care coordination. No changes at this point - referrals for SNF placement have been sent out, pending placement Per ortho - keep patient weight bearing as tolerated with boot. Follow up in clinic in 4 weeks Monitor renal function. Monitor blood pressure. At goal, continue [employer] valsartan 320 mg p.o. q.day. Prior to admission the patient was living at home, cared for by her . Full code. Saline lock IV Lovenox for DVT prophylaxis Time Spent With Patient Time: 35 minutes Subjective Date/time seen: 06/15/25 12:43 Interval history: No complaints. Pleasantly confused Sleepy this morning after working with therapy Pending SNF Review of Systems Review of Systems: All systems reviewed & are unremarkable except as noted in HPI and below (Subjective) ROS unobtainable: Yes unobtainable due to mental status (Severely limited due to dementia) Objective Data Vital Signs Vital Signs: Vital Signs - 24 hr 06/14/25 14:00 06/14/25 22:00 06/15/25 05:46 Temperature 96.5 F L 98.9 F 97.8 F Pulse Rate 81 110 H 92 Respiratory Rate 18 18 18 Blood Pressure 123/49 L 144/62 H 145/51 H Pulse Oximetry 100 100 100 Oxygen Delivery 06/15/25 08:00 Temperature Pulse Rate Respiratory Rate Blood Pressure Pulse Oximetry Oxygen Delivery Room Air Intake/Output Intake/Output: Intake & Output 06/12/25 06/13/25 06/14/25 06/15/25 23:59 23:59 23:59 23:59 Intake Total 1344 000 8419 590 Output Total 600 Balance 465 476 3515 590 Meds/Results Medications: Active Medications Generic Name Dose Route Start Last Admin Trade Name Freq PRN Reason Stop Dose Admin Acetaminophen 650 mg 06/10/25 19:05 Acetaminophen 325 Mg Tablet PO Q4H PRN Mild Pain (1-3) or Fever Alprazolam 0.25 mg 06/12/25 11:55 06/14/25 20:26 Alprazolam (*Crx) 0.25 Mg Tablet PO 0.25 mg TID PRN Administration Anxiety Aspirin 81 mg 06/13/25 09:00 06/14/25 13:25 Aspirin 81 Mg Enteric Tablet PO 81 mg DAILY MANAV Administration Atorvastatin Calcium 40 mg 06/13/25 09:00 06/14/25 13:25 Atorvastatin 40 Mg Tablet PO 40 mg DAILY MANAV Administration Cyanocobalamin 1,000 mcg 06/13/25 09:00 06/14/25 13:25 Cyanocobalamin 1,000 Mcg Tablet PO 1,000 mcg DAILY MANAV Administration Dextrose 12.5 gm 06/10/25 19:42 Dextrose 50% 25 Gm/50 Ml Syringe IV PUSH PRN PRN Hypoglycemia Protocol Donepezil HCl 10 mg 06/12/25 21:00 06/14/25 20:25 Donepezil Hcl 10 Mg Tablet PO 10 mg QHS MANAV Administration Doxepin HCl 10 mg 06/12/25 21:00 06/14/25 20:25 Doxepin Hcl 10 Mg Capsule PO 10 mg QHS MANAV Administration Enoxaparin Sodium 30 mg 06/15/25 09:00 Enoxaparin 30 Mg/0.3 Ml Syringe SUB-Q DAILY MANAV Glucose 15 gm 06/10/25 19:42 Glucose Oral Gel 15 Gm Of Glucse In 37.5 Gm Tube PO PRN PRN Hypoglycemia Protocol Dextrose 1,000 mls @ 100 mls/hr 06/10/25 19:42 Dextrose 5% 1,000 Ml IVPB PRN PRN Hypoglycemia Protocol Insulin Aspart 2 - 5 units 06/11/25 08:00 06/15/25 09:18 Insulin Aspart (*Bkc) 100 Units/Ml SUB-Q Not Given TIDWM MANAV Protocol Olanzapine 5 mg 06/12/25 21:20 06/14/25 20:25 Olanzapine 5 Mg Tablet PO 5 mg HS MANAV Administration Valsartan 320 mg 06/12/25 12:00 06/14/25 13:25 Valsartan 160 Mg Tablet PO 320 mg DAILY MANAV Administration Radiology Results: ITS Impressions Ankle X-Ray 06/10/25 16:43 IMPRESSION: 1. No acute osseous abnormality. Head CT 06/10/25 18:07 IMPRESSION: 1. No acute intracranial findings. Venous Doppler Study 06/11/25 10:42 IMPRESSION: 1. No left leg DVT. 2. 5 cm Keith's cyst. Ankle CT 06/12/25 09:15 IMPRESSION: 1. Nondisplaced avulsion fracture of anterior distal left fibula. I discussed this result with Dr. Tom. Labs Labs: Laboratory Results - last 24 hr 06/14/25 06/14/25 06/15/25 16:59 21:39 06:35 POC Capillary Glucose 276 H 258 H 203 H 06/15/25 12:14 POC Capillary Glucose 296 H Quality VTE Prophylaxis VTE prophylaxis: mechanical ordered and pharmacologic ordered Hospitalist [facility] Advance Care Plan I have confirmed that the patient's Advanced Care Plan is present, code status is documented, or surrogate decision maker is listed in patient medical record.: Yes Medication Reconciliation I have utilized all available resources to obtain, update and review the patients current medications (includes all prescriptions, OTC, herbals, cannabis, and nutritional supplements).: Yes
[2025-06-15] MEDS: INSULIN ASPART (*BKC) 100 UNITS/ML SUB-Q (13:09)
[2025-06-15] MEDS: CYANOCOBALAMIN 1,000 MCG TABLET 1000 MCG PO (13:09)
[2025-06-15] MEDS: VALSARTAN 160 MG TABLET 320 MG PO (13:09)
[2025-06-15] MEDS: ATORVASTATIN 40 MG TABLET PO (13:09)
[2025-06-15] MEDS: ENOXAPARIN 30 MG/0.3 ML SYRINGE SUB-Q (13:10)
[2025-06-15] MEDS: ASPIRIN 81 MG ENTERIC TABLET PO (13:10)
[2025-06-15 13:57] VITALS: BP 104/39; PULSE 85; RESP 10; TEMP 36.1; O2SAT 99
[2025-06-15] MEDS: DONEPEZIL HCL 10 MG TABLET PO (20:30)
[2025-06-15] MEDS: DOXEPIN HCL 10 MG CAPSULE PO (20:30)
[2025-06-15] MEDS: ALPRAZolam (*CRX) 0.25 MG TABLET PO (20:30)
[2025-06-15 20:39] VITALS: PULSE 85; RESP 18; O2SAT 100
[2025-06-15 21:34] VITALS: BP 105/56; PULSE 85; RESP 18; TEMP 36.8; O2SAT 100
[2025-06-16 06:00] VITALS: BP 101/62; PULSE 74; RESP 20; TEMP 36.8; O2SAT 99
--- NOTE | 2025-06-16 08:13 | PM.IMPN ---
Progress Note: A&P Assessment and Plan (1) Dementia of Alzheimer's type with behavioral disturbance: Code(s): G30.9 - Alzheimer's disease, unspecified; F02.818 - Dementia in other diseases classified elsewhere, unspecified severity, with other behavioral disturbance Status: Chronic (2) Primary hypertension: Code(s): I10 - Essential (primary) hypertension Status: Acute (3) Ankle fracture, left: Code(s): S82.892A - Other fracture of left lower leg, initial encounter for closed fracture Status: Acute Plan 79-year-old female with history of hyperlipidemia, hypertension, GERD, dementia with behavioral disturbances, chronic renal insufficiency. She lives at home with her . He is her mobility architect manager. Could not walk on 06/09/2025. She was her usual self before this, did not have a fall. She was brought in to [facility] ER and admitted for inability to ambulate. Initially her evaluation of left ankle included three view x-ray, this did not present any acute osseous abnormality. She did have significant pain on passive and active range of motion as well soft tissue swelling at the lateral and medial malleoli. I spoke with Orthopedic surgery and we ordered an ankle CT which demonstrates a nondisplaced avulsion fracture of the anterior distal left fibula. Orthopedic surgery has ordered a walking boot. Continue to appreciate further recommendations. Acetaminophen p.r.n. for pain. We will attempt to avoid any sedatives due to the patient's dementia with behavioral disturbances. As such, she received Ativan on the night of 06/10/2025. This left her very drowsy for the whole of the next day. Continue with frequent reorientation and promoting a good sleep-wake cycle. 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 Fall precautions, ambulate with assistance. PT/OT eval, continue to arrange for disposition with care coordination. No changes at this point - referrals for SNF placement have been sent out, pending placement Per ortho - keep patient weight bearing as tolerated with boot. Follow up in clinic in 4 weeks Monitor renal function. Monitor blood pressure. At goal, continue ACCOUNTS RECEIVABLE PROCESSOR valsartan 320 mg p.o. q.day. Prior to admission the patient was living at home, cared for by her . Full code Saline lock IV Lovenox for DVT prophylaxis Time Spent With Patient Time: 57 minutes Subjective Date/time seen: 06/16/25 13:15 Interval history: No overnight events. Minimal pain and wearing walking boot Called [facility] to clarify namenda dose. Waiting for a callback Pending SNF Review of Systems Review of Systems: All systems reviewed & are unremarkable except as noted in HPI and below (Subjective) ROS unobtainable: Yes unobtainable due to mental status (Severely limited due to dementia) Exam Narrative: General - Awake and alert. No acute distress Eyes - PERRLA, EOM intact ENT - No thrush, No erythema Neck - No noticeable or palpable swelling Lymph Nodes - No lymphadenopathy Cardiovascular - RRR no m/r/g, no JVD Lungs: Clear to auscultation, No wheezing, use of accessory muscles, no crackles Skin - Skin warm and dry, no wounds or rashes Abdomen - Normal bowel sounds, abdomen soft and nontender Extremities - No edema, cyanosis or clubbing Musculoskeletal - 5/5 strength, normal range of motion, no swollen or erythematous joints. Neurological ? Alert and oriented x 1, CN 2-12 grossly intact. Psych: Normal mood and affect Objective Data Vital Signs Vital Signs: Vital Signs - 24 hr 06/15/25 13:57 06/15/25 20:39 06/15/25 21:34 Temperature 96.9 F L 98.2 F Pulse Rate 85 85 85 Respiratory Rate 10 L 18 18 Blood Pressure 104/39 L 105/56 L Pulse Oximetry 99 100 100 Oxygen Delivery Room Air Fraction of Inspired Oxygen 21 06/16/25 06:00 Temperature 98.2 F Pulse Rate 74 Respiratory Rate 20 Blood Pressure 101/62 Pulse Oximetry 99 Oxygen Delivery Fraction of Inspired Oxygen Intake/Output Intake/Output: Intake & Output 06/13/25 06/14/25 06/15/25 06/16/25 23:59 23:59 23:59 23:59 Intake Total 810 1170 710 200 Balance 810 1170 710 200 Meds/Results Medications: Active Medications Generic Name Dose Route Start Last Admin Trade Name Freq PRN Reason Stop Dose Admin Acetaminophen 650 mg 06/10/25 19:05 Acetaminophen 325 Mg Tablet PO Q4H PRN Mild Pain (1-3) or Fever Alprazolam 0.25 mg 06/12/25 11:55 06/15/25 20:30 Alprazolam (*Crx) 0.25 Mg Tablet PO 0.25 mg TID PRN Administration Anxiety Aspirin 81 mg 06/13/25 09:00 06/15/25 13:10 Aspirin 81 Mg Enteric Tablet PO 81 mg DAILY MANAV Administration Atorvastatin Calcium 40 mg 06/13/25 09:00 06/15/25 13:09 Atorvastatin 40 Mg Tablet PO 40 mg DAILY MANAV Administration Cyanocobalamin 1,000 mcg 06/13/25 09:00 06/15/25 13:09 Cyanocobalamin 1,000 Mcg Tablet PO 1,000 mcg DAILY MANAV Administration Dextrose 12.5 gm 06/10/25 19:42 Dextrose 50% 25 Gm/50 Ml Syringe IV PUSH PRN PRN Hypoglycemia Protocol Donepezil HCl 10 mg 06/12/25 21:00 06/15/25 20:30 Donepezil Hcl 10 Mg Tablet PO 10 mg QHS MANAV Administration Doxepin HCl 10 mg 06/12/25 21:00 06/15/25 20:30 Doxepin Hcl 10 Mg Capsule PO 10 mg QHS MANAV Administration Enoxaparin Sodium 30 mg 06/15/25 09:00 06/15/25 13:10 Enoxaparin 30 Mg/0.3 Ml Syringe SUB-Q 30 mg DAILY MANAV Administration Glucose 15 gm 06/10/25 19:42 Glucose Oral Gel 15 Gm Of Glucse In 37.5 Gm Tube PO PRN PRN Hypoglycemia Protocol Dextrose 1,000 mls @ 100 mls/hr 06/10/25 19:42 Dextrose 5% 1,000 Ml IVPB PRN PRN Hypoglycemia Protocol Insulin Aspart 2 - 5 units 06/11/25 08:00 06/15/25 18:24 Insulin Aspart (*Bkc) 100 Units/Ml SUB-Q Not Given TIDWM MANAV Protocol Olanzapine 5 mg 06/12/25 21:20 06/15/25 20:29 Olanzapine 5 Mg Tablet PO 5 mg HS MANAV Administration Valsartan 320 mg 06/12/25 12:00 06/15/25 13:09 Valsartan 160 Mg Tablet PO 320 mg DAILY MANAV Administration Radiology Results: ITS Impressions Ankle X-Ray 06/10/25 16:43 IMPRESSION: 1. No acute osseous abnormality. Head CT 06/10/25 18:07 IMPRESSION: 1. No acute intracranial findings. Venous Doppler Study 06/11/25 10:42 IMPRESSION: 1. No left leg DVT. 2. 5 cm Keith's cyst. Ankle CT 06/12/25 09:15 IMPRESSION: 1. Nondisplaced avulsion fracture of anterior distal left fibula. I discussed this result with Dr. Tom. Labs Labs: Laboratory Results - last 24 hr 06/15/25 06/15/25 06/15/25 12:14 16:21 20:53 POC Capillary Glucose 296 H 242 H 218 H Quality VTE Prophylaxis VTE prophylaxis: mechanical ordered and pharmacologic ordered Hospitalist [facility] Advance Care Plan I have confirmed that the patient's Advanced Care Plan is present, code status is documented, or surrogate decision maker is listed in patient medical record.: Yes Medication Reconciliation I have utilized all available resources to obtain, update and review the patients current medications (includes all prescriptions, OTC, herbals, cannabis, and nutritional supplements).: Yes
[2025-06-16] MEDS: CYANOCOBALAMIN 1,000 MCG TABLET 1000 MCG PO (10:46)
[2025-06-16] MEDS: ASPIRIN 81 MG ENTERIC TABLET PO (10:47)
[2025-06-16] MEDS: ATORVASTATIN 40 MG TABLET PO (10:47)
[2025-06-16] MEDS: ENOXAPARIN 30 MG/0.3 ML SYRINGE SUB-Q (10:47)
[2025-06-16] MEDS: VALSARTAN 160 MG TABLET 320 MG PO (10:47)
[2025-06-16] MEDS: INSULIN ASPART (*BKC) 100 UNITS/ML SUB-Q ×3 (12:30→17:03)
[2025-06-16 14:00] VITALS: BP 90/50; PULSE 73; RESP 18; TEMP 36.4; O2SAT 100
[2025-06-16] MEDS: MEMANTINE 5 MG TABLET PO (16:36)
[2025-06-16] MEDS: DOXEPIN HCL 10 MG CAPSULE PO (20:14)
[2025-06-16] MEDS: DONEPEZIL HCL 10 MG TABLET PO (20:14)
[2025-06-16] MEDS: ALPRAZolam (*CRX) 0.25 MG TABLET PO (20:14)
[2025-06-16 21:38] VITALS: BP 137/52; PULSE 86; RESP 16; TEMP 36.5; O2SAT 100
[2025-06-17 06:00] VITALS: BP 131/61; PULSE 80; RESP 16; TEMP 36.3; O2SAT 100
--- NOTE | 2025-06-17 09:59 | PCNFU ---
Nutrition Follow-Up Complete: Inadequate oral intake related to altered mental status, somnolence as evidenced by RN report, 0% intakes Textures appropriate for patient needs - Goal is met with regular textures Improved PO intake when medically able - Goal is being met with PO intake. Continue same goal Goal: Pt current nutrition is Diabetic consistent carbs. Ensure + HP TID (350 kcal, 20 g protein) Nutrition recommendation: No new recommendations. Continue current nutrition care plan and orders Last recorded weight is 57.8 kg. Bowel Motility: +1 BM 06/16 Labs Reviewed: No new labs Meds Noted: Novolog, namenda Skin: No skin issues Additional Notes: Pt with walking boot, awaiting SNF placement. Appetite is good. Can monitor every 5 days. Continue current nutrition care plan. Agree with orders Monitoring mental status, intakes, swallowing ability, weights, labs, plan of care Follow up in 5 days
[2025-06-17] MEDS: MEMANTINE 5 MG TABLET PO (10:42)
[2025-06-17] MEDS: ATORVASTATIN 40 MG TABLET PO (10:42)
[2025-06-17] MEDS: CYANOCOBALAMIN 1,000 MCG TABLET 1000 MCG PO (10:42)
[2025-06-17] MEDS: ASPIRIN 81 MG ENTERIC TABLET PO (10:43)
[2025-06-17] MEDS: ENOXAPARIN 30 MG/0.3 ML SYRINGE SUB-Q (10:43)
[2025-06-17] MEDS: VALSARTAN 160 MG TABLET PO (10:43)
[2025-06-17] MEDS: INSULIN ASPART (*BKC) 100 UNITS/ML SUB-Q ×3 (10:46→12:58)
[2025-06-17] MEDS: ACETAMINOPHEN 325 MG TABLET 650 MG PO (12:59)
--- NOTE | 2025-06-17 13:10 | PC.NURSE ---
RN called to give report to [facility] and no answer at this time.
--- NOTE | 2025-06-17 13:20 | P.DS_ITS ---
DS: Admitting Diagnosis Discharge Date 06/17/2025 Admitting Diagnosis Left ankle effusion DS: Discharge Diagnosis Discharge Diagnosis (1) Left fibular fracture: Code(s): S82.402A - Unspecified fracture of shaft of left fibula, initial encounter for closed fracture Status: Acute DS: Summary Hospital Course Reason for hospitalization: Copied from [facility] 06/10: 79 y/o F with PMH of dementia, CKD, anxiety, GERD, diabetes, and hypertension presents here with inability to ambulate and left ankle swelling. The patient presents here from home via EMS for further evaluation of weakness, inability to walk, and swelling to her left ankle. At baseline the patient is A&Ox1-2 due to history of dementia, arrived A&O x1. History obtained through chart review, patient's , and ED provider report. He reports no recent falls or trauma that he is aware of. He reports the patient needs assistance with standing if she falls so he would know if she had fallen in the last few days. He reports up until Saturday she was ambulating as normal and then Saturday she stopped walking. Swelling then noted today to her left ankle. No previous history of blood clots. Initial VS at presentation: 98.5? F, HR 87, R 20, 156/61, and 100% on RA. ED workup showed: No leukocytosis, no anemia, sodium 136, creatinine 1.77 and GFR 28, glucose 321, BNP 471 (WNL for age), and UA equivocal for UTI. Head CT showed no acute intracranial findings. Ankle XR showed no acute osseous abnormality. Hospital Course: 79-year-old female with history of hyperlipidemia, hypertension, GERD, dementia with behavioral disturbances, chronic renal insufficiency. She lives at home with her . 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 Could not walk on 06/09/2025. She was her usual self before this, did not have a fall. She was brought in to [facility] ER and admitted for inability to ambulate. Initially her evaluation of left ankle included three view x-ray, this did not present any acute osseous abnormality. She did have significant pain on passive and active range of motion as well soft tissue swelling at the lateral and medial malleoli. I spoke with Orthopedic surgery and we ordered an ankle CT which demonstrates a nondisplaced avulsion fracture of the anterior distal left fibula. Orthopedic surgery has ordered a walking boot. Continue to appreciate further recommendations. Acetaminophen p.r.n. for pain. Avoided sedatives due to the patient's dementia with behavioral disturbances. For her diabetes, treated with a sliding scale. Can likely change to oral medication, per PCP As such, she received Ativan on the night of 06/10/2025. This left her very drowsy for the whole of the next day. Continued frequent reorientation and promoting a good sleep-wake cycle. 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 Fall precautions, ambulate with assistance. PT/OT eval, continue to arrange for disposition with care coordination. 06/[address] 1. Nondisplaced avulsion fracture of anterior distal left fibula Discharged to SNF Per ortho - keep patient weight bearing as tolerated with boot. Follow up in clinic in 4 weeks Status at Discharge Cognitive/behavioral status at discharge: AXOX1, pleasantly confused Time Spent with Patient Time attestation: Total time spent providing and/or coordinating discharge services: DS: Data Data Completed and Pending Labs on day of discharge: Labs from last 24 hours 06/17/25 06/17/25 06/16/25 11:47 08:02 20:10 POC Capillary Glucose 223 H 161 H 212 H 06/16/25 17:01 POC Capillary Glucose 273 H Discharge Plan Discharge Attending physician on discharge: Lola Dumont Consulting providers: Keegan Andrade; Toro Cassidy; Danielle De La Cruz; Gabby Garcia; Jessi Lassiter; Tico Tuttle; John Renteria; Isai Morfin V. Discharging Clinician: Lola Dumont Anticipated Discharge Date/Time: 06/17/25 13:09 Patient Disposition: SNF Activity: may shower, no driving and follow weight bearing status Diet: as tolerated Wound Care Instructions: follow printed instructions Discharge Instructions: Orthopedic Recommendations Dr. Toro Cassidy/Danielle De La Cruz, GALLERY HOST [phone] * Fracture boot left lower extremity. Okay to remove for hygeine/skin checks. * Ice/elevate. * Pain control. * WBAT with boot on. * Follow up appt scheduled below. Patient Language: B[place] Stand Alone Forms: General Discharge Information Follow-up/Referrals: Danielle De La Cruz, FISH STRAIGHTENER [Advanced Practice Nurse, Orthopedics] - 07/15/25 10:15 am Discharge Medications: New olanzapine 5 mg Tablet 5 mg PO HS Qty: 30 0RF valsartan [Diovan] 160 mg Tablet 160 mg PO DAILY Qty: 30 0RF insulin aspart U-100 [Novolog U-100 Insulin aspart] 100 unit/mL Solution 2 - 5 unit subcut TIDWM Qty: 10 0RF Protocol: Insulin Corrective Low-Dose Condition: glucose < 70 mg/dl Dose/Route: Follow Hypoglycemia Order Condition: glucose 70-200 mg/dl Dose/Route: No additional insulin Condition: glucose 201-250 mg/dl Dose/Route: 2 units sub-Q Condition: glucose 251-300 mg/dl Dose/Route: 3 units sub-Q Condition: glucose 301-350 mg/dl Dose/Route: 4 units sub-Q Condition: glucose 351-400 mg/dl Dose/Route: 5 units sub-Q Condition: glucose > 400 mg/dl Dose/Route: Call MD Protocol Text: *No Correction Dose at Bedtime* acetaminophen 325 mg Tablet 650 mg PO Q4H PRN (Reason: Mild Pain (1-3) Or Fever) Qty: 30 0RF Continued donepezil 10 mg tablet 10 mg PO QHS aspirin 81 mg tablet,delayed release (DR/EC) 81 mg PO DAILY Qty: 30 0RF alprazolam 0.25 mg tablet 0.25 mg PO TID PRN (Reason: anxiety) Qty: 15 0RF mecobalamin (vitamin B12) 1,000 mcg tablet,disintegrating 1,000 mcg sublingual DAILY Qty: 90 2RF Rx Instructions: place tablet under tongue and allow to dissolve for at least30 secs before swallowing Januvia 100 mg tablet 100 mg PO DAILY Qty: 90 1RF doxepin 10 mg capsule 10 mg PO QHS Qty: 30 0RF atorvastatin 40 mg tablet 40 mg PO DAILY Qty: 90 1RF Changed memantine [Namenda Titration Osman] 5-10 mg tablets,dose pack See Rx Instructions .ROUTE .COMPLEX Qty: 49 0RF Rx Instructions: 5mg daily for 7 days, then 5mg twice a day for 7 days, then 10mg AM, 5mg PM for 7 days, then 10mg twice a day Discontinued cefdinir 300 mg Capsule 300 mg PO DAILY Qty: 1 0RF donepezil [Aricept] 10 mg tablet 10 mg PO HS Qty: 30 1RF valsartan 320 mg tablet 320 mg PO DAILY Qty: 90 1RF metoprolol succinate 25 mg tablet extended release 24 hr 25 mg PO DAILY Qty: 90 3RF No Action (DME) blood sugar diagnostic Strip See Rx Instructions .Route Qty: 400 0RF Rx Instructions: Monitor blood sugar before each meal and before bed (DME) blood-glucose meter [Blood Glucose Monitoring] Kit See Rx Instructions .ROUTE .MEDSUPPLY Qty: 1 0RF Rx Instructions: Monitor blood sugar before each meal and before bed (DME) lancets 33 gauge misc See Rx Instructions .ROUTE .MEDSUPPLY Qty: 400 0RF Rx Instructions: Monitor blood sugar before each meal and before bed Date of admission: 06/12/25 15:52 Primary Care Provider: Juliet Morris Admitting Provider: Lisset Kimble Attending physician on admission: Lola Dumont Condition: Stable Quality VTE Prophylaxis VTE prophylaxis: pharmacologic ordered Hospitalist MIPS Heart Failure (Exclusion) Patient has history of Heart Transplant or Left Ventricular Assistive Device?: No IF YES, STOP HERE Heart Failure (Qualifier) Patient has current or prior documentation of LVEF less than or equal to 40%, or mod/servere depressed LVSF?: No IF NO, STOP HERE
== END 2025-06-17 13:50 | DRG 563 ==
LOC: ANHED 19:15 → ANH3MEDSUR 06-11 07:58
PROVIDERS: General Practice; Student in an Organized Health Care Education/Training Program; Admitting Provider Internal Medicine; Emergency Provider Family Medicine; PCP Family Medicine; Visit Provider Nurse Practitioner Acute Care
DX: S82.65XA Nondisplaced fracture of lateral malleolus of left fibula, initial encounter for closed fracture (principal); F02.818 Dementia in other diseases classified elsewhere, unspecified severity, with other behavioral disturbance; G30.9 Alzheimer's disease, unspecified; M85.872 Other specified disorders of bone density and structure, left ankle and foot; E11.22 Type 2 diabetes mellitus with diabetic chronic kidney disease; I12.9 Hypertensive chronic kidney disease with stage 1 through stage 4 chronic kidney disease, or unspecified chronic kidney disease; N18.30 Chronic kidney disease, stage 3 unspecified; D63.1 Anemia in chronic kidney disease; F41.9 Anxiety disorder, unspecified; K21.9 Gastro-esophageal reflux disease without esophagitis; E78.5 Hyperlipidemia, unspecified; R60.0 Localized edema; X58.XXXA Exposure to other specified factors, initial encounter; R62.7 Adult failure to thrive; Z74.1 Need for assistance with personal care; Z79.82 Long term (current) use of aspirin; Z90.49 Acquired absence of other specified parts of digestive tract
CPT/HCPCS: 36415; 70450; 73610; 73700; 80048; 80053; 81001; 82948; 83735; 83880; 84550; 85025; 85055; 85652; 86140; 87086; 93971; 96365; 96376; 97110; 97162; 97165; 97530; 97535; 99285; A9270; G0378; J0690; J1650; J1815; J2470; J7120